=== PATIENT | male | born 1945 | race Caucasian/White ===

== ENCOUNTER → 2016-03-24 | Outpatient (REF) | payer MEDICARE ==
[2016-03-24 12:04] LABS: ALBUMIN 3.2 GM/DL (3.2-5.2); ALBUMIN/GLOBULIN RATIO 0.97 (1.00-1.93); ALKALINE PHOSPHATASE 98 U/L (45-117); ALT/SGPT 23 U/L (12-78); ANION GAP 9 MEQ/L (8-16); AST/SGOT 20 U/L (15-37); BILIRUBIN,TOTAL 0.4 MG/DL (0.2-1.0); BLOOD UREA NITROGEN 18 MG/DL (7-18); CALCIUM LEVEL 8.6 MG/DL (8.8-10.2); CARBON DIOXIDE LEVEL 26 MEQ/L (21-32); CHLORIDE LEVEL 107 MEQ/L (98-107); CHOLESTEROL LEVEL 196 MG/DL (<200); CREATININE FOR GFR 0.88 MG/DL (0.70-1.30); GLOMERULAR FILTRATION RATE > 60.0 (>42); GLUCOSE, FASTING 99 MG/DL (83-110); POTASSIUM SERUM 4.3 MEQ/L (3.5-5.1); SODIUM LEVEL 142 MEQ/L (136-145); TOTAL PROTEIN 6.5 GM/DL (6.4-8.2); TRIGLYCERIDES LEVEL 246 MG/DL (<150)
== END ==
LOC: M SFHCPLAZ 08:23
PROVIDERS: ATTEND Internal Medicine
DX: I10 Essential (primary) hypertension (principal); E78.00 Pure hypercholesterolemia, unspecified

== ENCOUNTER → 2016-04-07 | Outpatient (CLI) | payer MEDICARE ==
[2016-04-07 14:35] LABS: COLLAGEN ADP 172 SECONDS (56-103)
== END ==
LOC: M LAB 14:00
PROVIDERS: ATTEND Ophthalmology
DX: Z01.818 Encounter for other preprocedural examination (principal); H25.13 Age-related nuclear cataract, bilateral
CPT/HCPCS: 17000; 36415; 85576; 93005; G0463

== ENCOUNTER → 2016-05-20 | Outpatient (CLI) | payer MEDICARE ==
--- NOTE | 2016-05-20 12:17 | REP ---
Clinical: Trauma. Technique: Frontal view of the chest with multiple views of the left hemithorax. Findings: Frontal view of the chest demonstrates no acute cardiopulmonary process. Multiple views of the left hemithorax demonstrates no obvious acute rib fracture or pathology. Impression: Normal left rib series Signed by Viraj Celeste MD 05/20/2016 12:08 P
== END ==
LOC: M WUC 11:40
PROVIDERS: ATTEND Physician Assistant
DX: S20.212A Contusion of left front wall of thorax, initial encounter (principal); X58.XXXA Exposure to other specified factors, initial encounter; Y93.9 Activity, unspecified; Y92.9 Unspecified place or not applicable; Y99.8 Other external cause status

== ENCOUNTER → 2016-09-26 | Outpatient (REF) | payer MEDICARE ==
[2016-09-26 11:18] LABS: MEAN CORPUSCULAR HEMOGLOBIN 34.8 pg (27.0-33.0); MEAN CORPUSCULAR VOLUME 102.5 fl (80.0-96.0)
[2016-09-26 11:27] LABS: ALBUMIN 3.3 GM/DL (3.2-5.2); ALBUMIN/GLOBULIN RATIO 1.06 (1.00-1.93); ALKALINE PHOSPHATASE 83 U/L (45-117); ALT/SGPT 22 U/L (12-78); ANION GAP 9 MEQ/L (8-16); AST/SGOT 20 U/L (15-37); BILIRUBIN,TOTAL 0.6 MG/DL (0.2-1.0); BLOOD UREA NITROGEN 16 MG/DL (7-18); CALCIUM LEVEL 8.3 MG/DL (8.8-10.2); CARBON DIOXIDE LEVEL 27 MEQ/L (21-32); CHLORIDE LEVEL 108 MEQ/L (98-107); CHOLESTEROL LEVEL 200 MG/DL (<200); CREATININE FOR GFR 0.78 MG/DL (0.70-1.30); GLOMERULAR FILTRATION RATE > 60.0 (>42); GLUCOSE, FASTING 100 MG/DL (83-110); POTASSIUM SERUM 4.3 MEQ/L (3.5-5.1); SODIUM LEVEL 144 MEQ/L (136-145); TOTAL PROTEIN 6.4 GM/DL (6.4-8.2); TRIGLYCERIDES LEVEL 183 MG/DL (<150)
== END ==
LOC: M SFHCPLAZ 08:13
PROVIDERS: ATTEND Internal Medicine
DX: E78.00 Pure hypercholesterolemia, unspecified (principal); Z79.899 Other long term (current) drug therapy; I10 Essential (primary) hypertension

== ENCOUNTER → 2017-03-30 | Outpatient (REF) | payer MEDICARE ==
[2017-03-30 13:38] LABS: ALBUMIN 3.4 GM/DL (3.2-5.2); ALKALINE PHOSPHATASE 92 U/L (45-117); ALT/SGPT 21 U/L (12-78); ANION GAP 9 MEQ/L (8-16); AST/SGOT 21 U/L (7-37); BILIRUBIN,TOTAL 0.6 MG/DL (0.2-1.0); BLOOD UREA NITROGEN 23 MG/DL (7-18); CALCIUM LEVEL 9.1 MG/DL (8.8-10.2); CARBON DIOXIDE LEVEL 28 MEQ/L (21-32); CHLORIDE LEVEL 107 MEQ/L (98-107); CHOLESTEROL LEVEL 201 MG/DL (<200); CHOLESTEROL RISK RATIO 4.102 (<5); CREATININE FOR GFR 0.89 MG/DL (0.70-1.30); GLOMERULAR FILTRATION RATE > 60.0 (>42); GLUCOSE, FASTING 91 MG/DL (70-100); HDL CHOLESTEROL 49 MG/DL (>40); MAGNESIUM LEVEL 2.1 MG/DL (1.8-2.4); NON-HDL-C 152 MG/DL; POTASSIUM SERUM 4.5 MEQ/L (3.5-5.1); SODIUM LEVEL 144 MEQ/L (136-145); TOTAL PROTEIN 6.8 GM/DL (6.4-8.2); TRIGLYCERIDES LEVEL 180 MG/DL (<150)
== END ==
LOC: M SFHCPLAZ 08:41
DX: I10 Essential (primary) hypertension (principal); E78.00 Pure hypercholesterolemia, unspecified
CPT/HCPCS: 83735

== ENCOUNTER 2017-06-11 09:03 | Day surgery (SDC) | payer MEDICARE ==
[2017-06-11] MEDS: NS 1,000 ML IV (09:15)
[2017-06-11] MEDS ORDERED: LIDOCAINE 2% INJ 100 MG/5 ML SDV (FOR ANES.) As Ordered (09:55)
[2017-06-11] MEDS ORDERED: PROPOFOL 200 MG/20 ML VIAL As Ordered (09:55)
== END 2017-06-11 10:47 | disposition home or self-care (01) ==
LOC: M OPP 09:03
DX: R13.10 Dysphagia, unspecified (principal); I10 Essential (primary) hypertension; E78.00 Pure hypercholesterolemia, unspecified; M10.9 Gout, unspecified; G47.9 Sleep disorder, unspecified; R06.83 Snoring; Z79.82 Long term (current) use of aspirin; Z79.899 Other long term (current) drug therapy; Z88.1 Allergy status to other antibiotic agents; Z88.8 Allergy status to other drugs, medicaments and biological substances; Z86.010 Personal history of colon polyps; Z90.49 Acquired absence of other specified parts of digestive tract; Z96.651 Presence of right artificial knee joint; Z98.890 Other specified postprocedural states; Z87.891 Personal history of nicotine dependence
CPT/HCPCS: 43249

== ENCOUNTER 2017-07-26 08:48 | Day surgery (SDC) | payer MEDICARE ==
[2017-07-26] MEDS: PROPARACAINE 0.5% OPHTH SOL 15ML OD (09:31)
[2017-07-26] MEDS: TROPICAMIDE 1% OPHTH SOLN 2ML OD (09:32)
[2017-07-26] MEDS: PHENYLEPHRINE 2.5% OPHTH SOL 2ML OD (09:32)
[2017-07-26] MEDS: OFLOXACIN 0.3 % (OCUFLOX) OPTH SOL 5ML OD (09:32)
[2017-07-26] MEDS: POVIDONE-IODINE 5% OPHTH PREP SOL 30ML As Ordered (10:31)
[2017-07-26] MEDS: BALANCED SALT IRRIGATION SOLUTION 500ML BAG (FOR OR EYE MACHINE) As Ordered (10:35)
[2017-07-26] MEDS: LIDOCAINE 0.75%/EPINEPHRINE 0.025% IN BSS 1ML SYR INTRACAMERAL (OR ONLY) As Ordered (10:36)
[2017-07-26] MEDS ORDERED: fentaNYL 100 MCG/2 ML INJECTION (J3010) As Ordered (10:37)
[2017-07-26] MEDS ORDERED: MIDAZOLAM INJ 2 MG/2 ML VIAL (J2250) As Ordered (10:38)
[2017-07-26] MEDS: CEFUROXIME 1MG/0.1ML INTRACAMERAL INJ As Ordered (10:42)
[2017-07-26] MEDS: DUOVISC (0.50ML VISCOAT/0.55ML PROVISC) OPHTH KIT As Ordered (10:45)
== END 2017-07-26 12:00 | disposition home or self-care (01) ==
LOC: M SDC 08:48
DX: H25.12 Age-related nuclear cataract, left eye (principal); H40.051 Ocular hypertension, right eye; Z79.82 Long term (current) use of aspirin; I10 Essential (primary) hypertension; Z79.899 Other long term (current) drug therapy; Z88.1 Allergy status to other antibiotic agents
CPT/HCPCS: 66984

== ENCOUNTER → 2017-10-08 | Outpatient (REF) | payer MEDICARE ==
[2017-10-08 12:46] LABS: ALBUMIN 3.2 GM/DL (3.2-5.2); ALBUMIN/GLOBULIN RATIO 0.91 (1.00-1.93); ALKALINE PHOSPHATASE 82 U/L (45-117); ALT/SGPT 24 U/L (12-78); ANION GAP 8 MEQ/L (8-16); AST/SGOT 21 U/L (7-37); BILIRUBIN,TOTAL 0.4 MG/DL (0.2-1.0); BLOOD UREA NITROGEN 14 MG/DL (7-18); CALCIUM LEVEL 8.9 MG/DL (8.8-10.2); CARBON DIOXIDE LEVEL 28 MEQ/L (21-32); CHLORIDE LEVEL 107 MEQ/L (98-107); CHOLESTEROL LEVEL 197 MG/DL (<200); CHOLESTEROL RISK RATIO 4.377 (<5); CREATININE FOR GFR 0.86 MG/DL (0.70-1.30); GLOMERULAR FILTRATION RATE > 60.0 (>42); GLUCOSE, FASTING 95 MG/DL (70-100); HDL CHOLESTEROL 45 MG/DL (>40); LDL CHOLESTEROL 119.4 MG/DL (<100); NON-HDL-C 152 MG/DL; POTASSIUM SERUM 4.7 MEQ/L (3.5-5.1); SODIUM LEVEL 143 MEQ/L (136-145); TOTAL PROTEIN 6.7 GM/DL (6.4-8.2); TRIGLYCERIDES LEVEL 163 MG/DL (<150); URIC ACID 4.5 MG/DL (3.5-7.2)
[2017-10-08 12:56] LABS: HEMATOCRIT 41.8 % (42.0-52.0); HEMOGLOBIN 14.2 g/dl (13.5-17.5); MEAN CORPUSCULAR HEMOGLOBIN 34.3 pg (27.0-33.0); PLATELET COUNT, AUTOMATED 205 10^3/uL (150-450); RED BLOOD COUNT 4.14 10^6/uL (4.30-6.10); RED CELL DISTRIBUTION WIDTH 12.5 % (11.5-14.5); WHITE BLOOD COUNT 6.9 10^3/uL (4.0-10.0)
== END ==
LOC: M SFHCPLAZ 09:51
DX: E78.00 Pure hypercholesterolemia, unspecified (principal); Z86.010 Personal history of colon polyps; I10 Essential (primary) hypertension; M10.9 Gout, unspecified; N20.0 Calculus of kidney
CPT/HCPCS: 83735

== ENCOUNTER 2017-12-19 10:28 | Day surgery (SDC) | payer MEDICARE ==
[2017-12-19] MEDS ORDERED: PROPOFOL 200 MG/20 ML VIAL As Ordered ×2 (11:00→12:06)
[2017-12-19] MEDS: NS 1,000 ML IV (11:00)
[2017-12-19] MEDS ORDERED: LIDOCAINE 2% INJ 100 MG/5 ML SDV (FOR ANES.) As Ordered (11:01)
== END 2017-12-19 12:55 | disposition home or self-care (01) ==
LOC: M OPP 10:28
DX: Z12.11 Encounter for screening for malignant neoplasm of colon (principal); Z86.010 Personal history of colon polyps; K64.0 First degree hemorrhoids; D12.6 Benign neoplasm of colon, unspecified; K62.1 Rectal polyp; K57.30 Diverticulosis of large intestine without perforation or abscess without bleeding; Z98.0 Intestinal bypass and anastomosis status; G47.9 Sleep disorder, unspecified; I10 Essential (primary) hypertension; Z79.82 Long term (current) use of aspirin; Z79.899 Other long term (current) drug therapy; Z88.8 Allergy status to other drugs, medicaments and biological substances; Z87.39 Personal history of other diseases of the musculoskeletal system and connective tissue; Z90.49 Acquired absence of other specified parts of digestive tract; Z96.651 Presence of right artificial knee joint
CPT/HCPCS: 45380

== ENCOUNTER → 2018-03-31 | Outpatient (CLI) | payer MEDICARE ==
[~2018-03-31] MED LIST: ASPI1TAB PO; FISH1000 PO; LATA5OPD OU; MAG PO; MELO15TA28 PO; OMEP20CA3 PO; XALA0.007 OU; ZYLO300T6 PO
--- NOTE | 2018-04-04 13:13 | SLEEPCENT ---
DATE OF PROCEDURE: 03/31/2018 ORDERED BY: Opal Lopez Nocturnal polysomnography was performed for the titration of pressure therapy in this patient with obstructive sleep apnea syndrome and apnea-hypopnea index 85.7. For testing, the patient was fit with a ResMed Quattro full face mask of medium size and 5 cm of water pressure were applied to the circuit and the lights were extinguished. 6 hours and 40 minutes of data were reviewed. There were 343 minutes of sleep identified. Sleep latency was normal at 24 minutes. Rapid eye movement (REM) latency was normal at 115 minutes. Sleep architecture improved over the course of the study. Overall sleep efficiency was 86.7%. The patient's electrocardiogram showed a sinus rhythm with PVCs. Average heart rate was 66 beats per minute. Electroencephalogram (EEG) showed normal waveforms for awake and sleep stages. Respiratory events were fully palliated with C-PAP at a pressure +12. There was significant limb activity, but arousals from limb events were few. IMPRESSION: Obstructive sleep apnea syndrome (G47.33). RECOMMENDATION: Nightly use of pressure therapy at 12 cm of water.
== END ==
LOC: M SLEEP 20:00
PROVIDERS: ATTEND Nurse Practitioner Family
DX: G47.33 Obstructive sleep apnea (adult) (pediatric) (principal)

== ENCOUNTER → 2018-04-12 | Outpatient (REF) | payer MEDICARE ==
[2018-04-12 13:42] LABS: HEMATOCRIT 42.3 % (42.0-52.0); HEMOGLOBIN 14.2 g/dl (13.5-17.5); MEAN CORPUSCULAR HEMOGLOBIN 33.8 pg (27.0-33.0); MEAN CORPUSCULAR HGB CONC 33.6 g/dl (32.0-36.5); MEAN CORPUSCULAR VOLUME 100.7 fl (80.0-96.0); PLATELET COUNT, AUTOMATED 206 10^3/uL (150-450); WHITE BLOOD COUNT 8.1 10^3/uL (4.0-10.0)
[2018-04-12 13:53] LABS: ALBUMIN 3.3 GM/DL (3.2-5.2); ALT/SGPT 20 U/L (12-78); BILIRUBIN,TOTAL 0.5 MG/DL (0.2-1.0); BLOOD UREA NITROGEN 18 MG/DL (7-18); CALCIUM LEVEL 8.7 MG/DL (8.8-10.2); CARBON DIOXIDE LEVEL 28 MEQ/L (21-32); CHLORIDE LEVEL 107 MEQ/L (98-107); CHOLESTEROL LEVEL 184 MG/DL (<200); CHOLESTEROL RISK RATIO 4.717 (<5); CREATININE FOR GFR 0.87 MG/DL (0.70-1.30); GLOMERULAR FILTRATION RATE > 60.0 (>42); GLUCOSE, FASTING 90 MG/DL (70-100); HDL CHOLESTEROL 39 MG/DL (>40); LDL CHOLESTEROL 108 MG/DL (<100); NON-HDL-C 145 MG/DL; POTASSIUM SERUM 4.4 MEQ/L (3.5-5.1); SODIUM LEVEL 141 MEQ/L (136-145); TOTAL PROTEIN 6.6 GM/DL (6.4-8.2); TRIGLYCERIDES LEVEL 187 MG/DL (<150)
[2018-04-12 15:46] LABS: FOLATE 12.8 NG/ML
[2018-04-12 16:08] LABS: VITAMIN B12 LEVEL 1982 PG/ML
== END ==
LOC: M LABDRAWP 08:34
PROVIDERS: ATTEND Internal Medicine
DX: I10 Essential (primary) hypertension (principal); E78.00 Pure hypercholesterolemia, unspecified; E53.8 Deficiency of other specified B group vitamins

== ENCOUNTER → 2018-04-12 | Outpatient (REF) | payer MEDICARE | LOC: CANPREREF → M SFHCPLAZ 08:40 | PROVIDERS: ATTEND Internal Medicine | DX: Z53.9 Procedure and treatment not carried out, unspecified reason (principal); E53.8 Deficiency of other specified B group vitamins; I10 Essential (primary) hypertension; E78.00 Pure hypercholesterolemia, unspecified ==

== ENCOUNTER → 2018-09-11 | Outpatient (REF) | payer MEDICARE ==
[~2018-09-11] MED LIST changes: -ASPI1TAB PO; +ASPI81TA26 PO; +LATA0.0013 OU; -LATA5OPD OU; -OMEP20CA3 PO; +OMEP20CA4 PO
== END ==
LOC: M SFHCPLAZ 12:08
PROVIDERS: ATTEND Internal Medicine
DX: R19.7 Diarrhea, unspecified (principal)

== ENCOUNTER → 2018-10-22 | Outpatient (REF) | payer MEDICARE ==
[2018-10-22 13:18] LABS: ALBUMIN 3.5 GM/DL (3.2-5.2); ALT/SGPT 22 U/L (12-78); BILIRUBIN,TOTAL 0.5 MG/DL (0.2-1.0); BLOOD UREA NITROGEN 18 MG/DL (7-18); CALCIUM LEVEL 9.7 MG/DL (8.8-10.2); CARBON DIOXIDE LEVEL 28 MEQ/L (21-32); CHLORIDE LEVEL 106 MEQ/L (98-107); CHOLESTEROL LEVEL 208 MG/DL (<200); CHOLESTEROL RISK RATIO 4.521 (<5); CREATININE FOR GFR 0.87 MG/DL (0.70-1.30); GLOMERULAR FILTRATION RATE > 60.0 (>42); GLUCOSE, FASTING 99 MG/DL (70-100); HDL CHOLESTEROL 46 MG/DL (>40); LDL CHOLESTEROL 135 MG/DL (<100); NON-HDL-C 162 MG/DL; POTASSIUM SERUM 4.3 MEQ/L (3.5-5.1); SODIUM LEVEL 141 MEQ/L (136-145); TOTAL PROTEIN 6.8 GM/DL (6.4-8.2); TRIGLYCERIDES LEVEL 136 MG/DL (<150); URIC ACID 4.4 MG/DL (3.5-7.2)
== END ==
LOC: M SFHCPLAZ 09:07
PROVIDERS: ATTEND Internal Medicine
DX: I10 Essential (primary) hypertension (principal); E78.00 Pure hypercholesterolemia, unspecified; M10.9 Gout, unspecified

== ENCOUNTER 2018-11-16 11:15 | Emergency (ER) | payer MEDICARE ==
[~2018-11-16] VITALS: Ht 175.3 cm; Wt 118.2 kg
[~2018-11-16 11:15] MED LIST changes: +OMEP1CAP73 PO; -OMEP20CA4 PO
[2018-11-16 12:02] LABS: BASO # 0.1 10^3/uL (0.0-0.2); BASO % 0.7 % (0.0-1.0); EOS # 0.3 10^3/uL (0.0-0.5); EOS % 3.5 % (0.0-3.0); HEMATOCRIT 38.9 % (42.0-52.0); HEMOGLOBIN 13.5 g/dl (13.5-17.5); LYMPH # 1.3 10^3/uL (1.5-5.0); LYMPH % 15.8 % (24.0-44.0); MEAN CORPUSCULAR HEMOGLOBIN 34.2 pg (27.0-33.0); MEAN CORPUSCULAR HGB CONC 34.7 g/dl (32.0-36.5); MEAN CORPUSCULAR VOLUME 98.5 fl (80.0-96.0); MONO # 0.8 10^3/uL (0.0-0.8); MONO % 9.4 % (0.0-5.0); NEUTROPHILS # 5.8 10^3/uL (1.5-8.5); NEUTROPHILS % 70.1 % (36.0-66.0); PLATELET COUNT, AUTOMATED 194 10^3/uL (150-450); RED BLOOD COUNT 3.95 10^6/uL (4.30-6.10); WHITE BLOOD COUNT 8.3 10^3/uL (4.0-10.0)
[2018-11-16 12:29] LABS: INR 1.07; PARTIAL THROMBOPLASTIN TIME 30.2 SECONDS (25.0-38.4); PROTHROMBIN TIME 13.6 SECONDS (11.8-14.0)
[2018-11-16 12:31] LABS: ALBUMIN 3.2 GM/DL (3.2-5.2); ALT/SGPT 25 U/L (12-78); BILIRUBIN,DIRECT < 0.1 MG/DL (0.0-0.2); BILIRUBIN,TOTAL 0.3 MG/DL (0.2-1.0); BLOOD UREA NITROGEN 16 MG/DL (7-18); CALCIUM LEVEL 8.7 MG/DL (8.8-10.2); CARBON DIOXIDE LEVEL 27 MEQ/L (21-32); CHLORIDE LEVEL 106 MEQ/L (98-107); CPK CREATINE PHOSPHOKINASE 78 U/L (39-308); CREATININE FOR GFR 0.86 MG/DL (0.70-1.30); FREE T4 0.87 NG/DL (0.76-1.46); GLOMERULAR FILTRATION RATE > 60.0 (>42); GLUCOSE, FASTING 120 MG/DL (70-100); LIPASE 121 U/L (73-393); MB/CK RELATIVE INDEX 2.56 (< OR =4); POTASSIUM SERUM 4.2 MEQ/L (3.5-5.1); SODIUM LEVEL 140 MEQ/L (136-145); THYROID STIMULATING HORMONE 0.853 uIU/ML (0.358-3.740); TOTAL PROTEIN 6.4 GM/DL (6.4-8.2); TROPONIN I < 0.02 NG/ML (< 0.10)
[2018-11-16] MEDS ORDERED: ISOVUE-370 76% 100ML VIAL (Q9967) As Ordered ONE (13:15)
--- NOTE | 2018-11-16 13:45 | REP ---
AP PORTABLE CHEST: 11/16/2018. Comparison: PA chest with ribs 05/20/2016, two-view chest 10/11/2015. Clinical history: Chest pain. Findings. Right lung base shows patchy infiltrate or atelectasis as a new finding. Some minor basilar fibrotic change in the left. No gross effusion, dense consolidation with air bronchograms or lung mass. Heart not grossly enlarged. The aorta is calcified at the arch, mildly tortuous but unchanged and without aneurysm. Airway intact. No widening of the mediastinum. No apical scar, pneumothorax. Impression: 1. Some patchy atelectasis or infiltrate right base superimposed on some mild basilar fibrotic change. No cardiomegaly, edema, effusion or other acute finding. Electronically Signed by Franklin Rojas MD 11/16/2018 07:40 P
[2018-11-16 14:41] LABS: CK-MB VALUE MASS 1.9 NG/ML (<3.6); CPK CREATINE PHOSPHOKINASE 74 U/L (39-308); MB/CK RELATIVE INDEX 2.57 (< OR =4); TROPONIN I < 0.02 NG/ML (< 0.10)
[2018-11-16 15:16] VITALS: BP 134/81
--- NOTE | 2018-11-16 19:33 | ECGEPIP ---
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
--- NOTE | 2018-11-17 07:09 | REP ---
CT ANGIOGRAM CHEST: 11/16/2018. Comparison: AP portable chest 11/16/2018, CT angiogram 08/03/2014. Clinical history: Chest pain. Technique: Bolus of 75 ml Isovue 370 and scanning through the chest with CT angiogram protocol with coronal and sagittal reconstructions with MIP reformats and standard reformats are reviewed. Findings: Basilar fibrotic changes bilaterally with some minor subsegmental atelectatic changes posterior lower lung zone. No effusion or acute infiltrate with air bronchograms. There is a stable 8 mm pleural-based nodule in the anterior axillary line in the lateral segment right middle lobe. Heart is mildly enlarged with no pericardial thickening or effusion. The aorta is without aneurysm or dissection. Some calcifications at the arch. The main, right and left pulmonary arteries and the mediastinum are without filling defects. Lobar, segmental and visible subsegmental arteries are all without filling defects or vessel cutoff. There is no pathologic sized mediastinal or hilar adenopathy. Tracheal airway intact. The axillary and supraclavicular region show no mass. Bone windows show the sternum, manubrium, medial clavicles, visualized portions of scapulae and humeral heads intact. There is some degenerative change at the both shoulder joints. The ribs are without focal lesion or fracture. There are marginal osteophytes throughout the thoracic spine with no compression deformity of destructive lesion. In the upper abdomen. Spleen is not enlarged and shows no focal lesion of the liver is without mass or focal lesion in its visible segment in the left hepatic lobe is mildly prominent. Gallbladder partially contracted without calcified stone or mass. That portion of pancreas included was unremarkable. Adrenal glands intact. No definite hiatal hernia. Impression: 1. No CT evidence for pulmonary thromboembolism. 2. Calcified aortic arch and descending aorta without gross aneurysm or dissection. 3. No pathologic sized mediastinal or hilar adenopathy. 4. Some basilar fibrotic changes with some minor subsegmental atelectatic changes posteriorly lower lung zone on the right. No dense consolidation, effusion or mass. 5. There is 8 mm pleural-based nodule anterior axillary line in the right middle lobe lateral segment, unchanged for 4 years indicating benign finding. 6. No fracture or destructive lesion in the bony chest. Electronically Signed by Franklin Rojas MD 11/17/2018 09:14 A
--- NOTE | 2018-11-18 08:19 | ECGEPIP ---
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
--- NOTE | 2018-11-19 12:42 | ED PDOC ---
Post-Departure Follow-Up dr newby faxed formal report of cta chest for Yarelis Herrera MD Nov 19, 2018 12:42
[2018-12-01] MEDS ORDERED: OMEP1CAP73 PO (18:28)
== END 2018-11-16 15:34 | disposition home or self-care (01) ==
LOC: M ED 11:15
DX: M25.512 Pain in left shoulder (principal); I44.0 Atrioventricular block, first degree; I45.10 Unspecified right bundle-branch block; R91.1 Solitary pulmonary nodule; I10 Essential (primary) hypertension; M54.9 Dorsalgia, unspecified; K57.32 Diverticulitis of large intestine without perforation or abscess without bleeding; Z87.891 Personal history of nicotine dependence; Z79.82 Long term (current) use of aspirin; Z79.899 Other long term (current) drug therapy; Z88.8 Allergy status to other drugs, medicaments and biological substances
CPT/HCPCS: 71045; 71275; 80048; 80076; 82550; 82553; 83690; 84439; 84443; 84484; 85025; 85610; 85730; 93005; 93041; 94760; 99285; Q9967

== ENCOUNTER → 2018-11-28 | Outpatient (REF) | payer MEDICARE ==
[~2018-11-28] MED LIST changes: +ATOR1TAB21 PO; +CLOP75TA2 PO; +FLON1SPR; +MAGN64TASA PO; -OMEP1CAP73 PO; +OMEP20CA4 PO; +SPIR-10 PO
[2018-11-28 17:32] LABS: HEMATOCRIT 43.1 % (42.0-52.0); HEMOGLOBIN 14.6 g/dl (13.5-17.5); MEAN CORPUSCULAR HEMOGLOBIN 34.8 pg (27.0-33.0); MEAN CORPUSCULAR HGB CONC 33.9 g/dl (32.0-36.5); MEAN CORPUSCULAR VOLUME 102.6 fl (80.0-96.0); PLATELET COUNT, AUTOMATED 217 10^3/uL (150-450); WHITE BLOOD COUNT 9.2 10^3/uL (4.0-10.0)
[2018-11-28 17:42] LABS: ALBUMIN 3.6 GM/DL (3.2-5.2); BLOOD UREA NITROGEN 14 MG/DL (7-18); CALCIUM LEVEL 9.2 MG/DL (8.8-10.2); CARBON DIOXIDE LEVEL 28 MEQ/L (21-32); CHLORIDE LEVEL 106 MEQ/L (98-107); CREATININE FOR GFR 0.91 MG/DL (0.70-1.30); GLOMERULAR FILTRATION RATE > 60.0 (>42); GLUCOSE, FASTING 109 MG/DL (70-100); NT-PRO BNP 493 PG/ML (<125); PHOSPHORUS LEVEL 3.2 MG/DL (2.5-4.9); POTASSIUM SERUM 4.1 MEQ/L (3.5-5.1); SODIUM LEVEL 140 MEQ/L (136-145)
== END ==
LOC: M LABDRAWP 15:20
PROVIDERS: ATTEND Internal Medicine Cardiovascular Disease
DX: R06.02 Shortness of breath (principal); I44.0 Atrioventricular block, first degree

== ENCOUNTER 2018-12-01 13:38 | Observation (INO) | payer MEDICARE ==
[~2018-12-01] VITALS: Ht 175.3 cm; Wt 117.7 kg
[~2018-12-01 13:38] MED LIST changes: -ATOR1TAB21 PO; -CLOP75TA2 PO; -FLON1SPR; -MAGN64TASA PO; -SPIR-10 PO
[2018-12-01] MEDS ORDERED: SPIR-10 PO (13:53)
[2018-12-01] MEDS ORDERED: CLOP75TA2 PO (13:53)
[2018-12-01 14:38] LABS: BASO # 0.1 10^3/uL (0.0-0.2); BASO % 0.9 % (0.0-1.0); EOS # 0.3 10^3/uL (0.0-0.5); EOS % 3.1 % (0.0-3.0); HEMATOCRIT 43.2 % (42.0-52.0); HEMOGLOBIN 14.7 g/dl (13.5-17.5); LYMPH # 1.4 10^3/uL (1.5-5.0); LYMPH % 15.8 % (24.0-44.0); MEAN CORPUSCULAR HEMOGLOBIN 34.4 pg (27.0-33.0); MEAN CORPUSCULAR VOLUME 101.2 fl (80.0-96.0); MONO # 0.9 10^3/uL (0.0-0.8); MONO % 9.6 % (0.0-5.0); NEUTROPHILS # 6.4 10^3/uL (1.5-8.5); NEUTROPHILS % 69.9 % (36.0-66.0); PLATELET COUNT, AUTOMATED 210 10^3/uL (150-450); RED BLOOD COUNT 4.27 10^6/uL (4.30-6.10); WHITE BLOOD COUNT 9.1 10^3/uL (4.0-10.0)
[2018-12-01 15:02] LABS: ALBUMIN 3.6 GM/DL (3.2-5.2); ALT/SGPT 28 U/L (12-78); BILIRUBIN,DIRECT 0.1 MG/DL (0.0-0.2); BILIRUBIN,TOTAL 0.6 MG/DL (0.2-1.0); BLOOD UREA NITROGEN 14 MG/DL (7-18); CALCIUM LEVEL 9.6 MG/DL (8.8-10.2); CARBON DIOXIDE LEVEL 29 MEQ/L (21-32); CHLORIDE LEVEL 105 MEQ/L (98-107); CK-MB VALUE MASS 1.8 NG/ML (<3.6); CPK CREATINE PHOSPHOKINASE 76 U/L (39-308); CREATININE FOR GFR 0.89 MG/DL (0.70-1.30); GLOMERULAR FILTRATION RATE > 60.0 (>42); GLUCOSE, FASTING 88 MG/DL (70-100); LIPASE 115 U/L (73-393); MAGNESIUM LEVEL 1.8 MG/DL (1.8-2.4); MB/CK RELATIVE INDEX 2.37 (< OR =4); POTASSIUM SERUM 4.4 MEQ/L (3.5-5.1); SODIUM LEVEL 138 MEQ/L (136-145); TOTAL PROTEIN 7.5 GM/DL (6.4-8.2); TROPONIN I < 0.02 NG/ML (< 0.10)
[2018-12-01 17:15] LABS: CK-MB VALUE MASS 1.7 NG/ML (<3.6); CPK CREATINE PHOSPHOKINASE 65 U/L (39-308); MB/CK RELATIVE INDEX 2.62 (< OR =4); TROPONIN I < 0.02 NG/ML (< 0.10)
[2018-12-01] MEDS ORDERED: FLON1SPR (18:28)
[2018-12-01] MEDS ORDERED: MAGN64TASA PO (18:28)
[2018-12-01] MEDS ORDERED: OMEP20CA4 PO (18:28)
[2018-12-01] MEDS ORDERED: FUROSEMIDE 20 MG/2 ML VIAL (J1940) IV ONE (18:45)
--- NOTE | 2018-12-01 18:57 | HPEPDOC ---
General Date of Admission 12/01/2018 Date of Service: Dec 01, 2018 Chief Complaint The patient is a 73-year-old male Who presented to the emergency room with complaints of lightheadedness and a numbness and tingling sensation of the left arm History of Present Illness Patient is a 73-year-old male with PMHx HTN, DLP, Gout, Arthritis, and GERD who presented to the ER with complaints of possibly passing out and numbness extending from his left arm to his left shoulder. Patient reported that he experiences for short duration of time and contacted EMS because he was concerned. Patient had resolution of his symptoms prior to arrival to emergency room. Patient reports that currently he feels pretty good. He denies any chest pain, palpitations, shortness of breath, cough, nausea, vo miting, abdominal pain, constipation, diarrhea, or urinary discomfort. He denies experiencing fevers or chills over the last 2 weeks. He has noted that he had experienced some chest discomfort approximately one week ago when he was mowing the lawn. Patient had seen Dr. Fisher of cardiology on and was scheduled to receive a stress test on 12/11/2018. Patient was prescribed spironolactone and Plavix. Patient denies any prior history of heart attacks or strokes. He has received a stress test in 2010 that was reported to be normal. Has not received any prior cardiac catheterizations. Patient reports that hes able to ambulate up 1 flight of stairs and does not experience any chest pain but does report that he might be limited because of shortness of breath. Home Medications Scheduled Allopurinol (Zyloprim) 300 Mg Tab, 300 MG PO DAILY, (Reported) Aspirin (Aspirin EC) 81 Mg Tab, 81 MG PO DAILY, (Reported) Atorvastatin Calcium (Atorvastatin Calcium) 20 Mg Tablet, 20 MG PO DAILY Clopidogrel Bisulfate (Clopidogrel) 75 Mg Tablet, 75 MG PO DAILY, (Reported) Fluticasone Propionate (Flonase Allergy Relief) 9.9 Ml [place].susp, 2 SPRAY NA QHS, (Reported) Magnesium Chloride (Mag64) 64 Mg Tablet.dr, 64 MG PO DAILY, (Reported) Meloxicam (Meloxicam) 15 Mg Tab, 15 MG PO DAILY, (Reported) Omeprazole (Omeprazole) 20 Mg Capsule.dr, 20 MG PO DAILY, (Reported) Spironolactone (Spironolactone) 25 Mg Tablet, 25 MG PO DAILY, (Reported) Allergies Coded Allergies: cephalexin (Verified Allergy, Intermediate, 11/16/18) rash sulfamethoxazole (Verified Allergy, Intermediate, rash, 11/16/18) trimethoprim (Verified Allergy, Intermediate, rash, 11/16/18) Past Medical History Medical History HTN, DLP, Gout, Arthritis, and GERD Surgical History Right knee replacement in 2017 Colonoscopy Left wrist fracture status post repair Bilateral cataract resection Tonsillectomy Umbilical hernia repair Back surgery in 1995 secondary to herniated disks at L3-L4; patient has since experienced fevers of the left foot and uses a support device Family History - Mother with no reported problems - Father has been reported to have from a heart attack - Patient reports that his eldest brother has a history of cancer related to asbestos Social History - Denies the use of illicit drugs; patient reports that he quit smoking in the ; reports social alcohol use - Denies recent travel or sick contacts - Lives alone - Occupation; 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 Review of Systems Other systems 10 point review of systems complete, all negative otherwise stated in HPI Vital Signs - Vitals: BP 141/70, HR 82, RR 16, Sat 97%RA, Temp 98.5F - General: Lying in bed, No acute distress, Speaking in full sentences, AAOx3 - HEENT: NC, AT, PERRLA, EOMI - CVS: RRR, +S1S2 - Lungs: Fair air entry bilaterally, No appreciable wheezing / rales / rhonchi - Abdomen: Soft, Non-distended, Non-tender - Extremities: 2+ pitting edema bilaterally, No calf tenderness - Neuro: No focal motor or sensory deficit - Skin: No visible rashes Laboratory Data Labs 24H Laboratory Tests 2 12/01/18 14:03: Immature Granulocyte % (Auto) 0.7, White Blood Count 9.1, Red Blood Count 4.27L, Hemoglobin 14.7, Hematocrit 43.2, Mean Corpuscular Volume 101.2H, Mean Corpuscular Hemoglobin 34.4H, Mean Corpuscular Hemoglobin Concent 34.0, Red Cell Distribution Width 12.6, Platelet Count 210, Neutrophils (%) (Auto) 69.9H, Lymphocytes (%) (Auto) 15.8L, Monocytes (%) (Auto) 9.6H, Eosinophils (%) (Auto) 3.1H, Basophils (%) (Auto) 0.9, Neutrophils # (Auto) 6.4, Lymphocytes # (Auto) 1.4L, Monocytes # (Auto) 0.9H, Eosinophils # (Auto) 0.3, Basophils # (Auto) 0.1, Nucleated Red Blood Cells % (auto) 0.0, Anion Gap 4L, Glomerular Filtration Rate > 60.0, Calcium Level 9.6, Magnesium Level 1.8, Aspartate Amino Transf (AST/SGOT) 25, Alanine Aminotransferase (ALT/SGPT) 28, Alkaline Phosphatase 94, Total Bilirubin 0.6, Direct Bilirubin 0.1, Total Creatine Kinase 76, Creatine Kinase MB 1.8, Creatine Kinase MB Relative Index 2.37, Troponin I < 0.02, Total Protein 7.5, Albumin 3.6, Albumin/Globulin Ratio 0.92L, Lipase 115, Thyroid Stimulating Hormone (TSH) 1.160 12/01/18 16:39: Total Creatine Kinase 65, Creatine Kinase MB 1.7, Creatine Kinase MB Relative Index 2.62, Troponin I < 0.02 CBC/BMP Laboratory Tests 12/01/18 14:03 Red Blood Count 4.27 L, Mean Corpuscular Volume 101.2 H, Mean Corpuscular Hemoglobin 34.4 H, Mean Corpuscular Hemoglobin Concent 34.0, Red Cell Distribution Width 12.6, Neutrophils (%) (Auto) 69.9 H, Lymphocytes (%) (Auto) 15.8 L, Monocytes (%) (Auto) 9.6 H, Eosinophils (%) (Auto) 3.1 H, Basophils (%) (Auto) 0.9, Neutrophils # (Auto) 6.4, Lymphocytes # (Auto) 1.4 L, Monocytes # (Auto) 0.9 H, Eosinophils # (Auto) 0.3, Basophils # (Auto) 0.1 Plan / VTE VTE Prophylaxis Ordered?: Yes Plan Plan Feeling of passing out/numbness and tingling left arm - Patient has been following with cardiology as an outpatient for a recent history of chest pain - Currently patient has reported no symptoms. Upon arrival to emergency room - Patient remains hemodynamically stable and afebrile - Lab work remains benign - Troponin 2 sets have been negative. Will continue to trend - Will check lipid panel and A1c - EKG performed in the emergency room was compared against prior EKG from 11/16/2018 and does not reveal any significant changes; current EKG does not demonstrate any significant ischemia - Will order ECHO and c/w Telemetry monitoring - c/w ASA 81, Plavix 75 - Physical therapy evaluation tomorrow HTN - Patient blood pressure appears to be well-controlled at this time - Lower extremity is due reveal some evidence of edema - Echocardiogram will be acquired - Will give 1 dose furosemide 20 mg IV - Continue with spironolactone DLP - Will check Lipid panel - c/w ASA 81 Gout - c/w Allopurinol Arthritis - c/w Tylenol PRN GERD - c/w Omeprazole DVT prophylaxis - Will start Loverodolfox DYAN JORDAN MD Dec 01, 2018 18:57
[2018-12-01] MEDS ORDERED: ACETAMINOPHEN TAB 650MG DOSE (2X325MG) PO PRN (19:00)
--- NOTE | 2018-12-01 19:19 | ECGEPIP ---
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
[2018-12-01 19:31] LABS: CK-MB VALUE MASS 1.8 NG/ML (<3.6); CPK CREATINE PHOSPHOKINASE 70 U/L (39-308); MB/CK RELATIVE INDEX 2.57 (< OR =4); NT-PRO BNP 493 PG/ML (<125); TROPONIN I < 0.02 NG/ML (< 0.10)
[2018-12-01 20:25] VITALS: BP 150/78
[2018-12-01] MEDS: FLUTICASONE PROP 0.05% NASAL SPRAY 16 GM (FLONASE) SCH (21:32)
[2018-12-01] MEDS: ENOXAPARIN 40 MG/0.4 ML SYRINGE (J1650) SC SCH (21:32)
[2018-12-02] VITALS (7 sets, daily range): BP systolic 116–149; BP diastolic 70–90
[2018-12-02 01:44] LABS: CK-MB VALUE MASS 1.4 NG/ML (<3.6); CPK CREATINE PHOSPHOKINASE 60 U/L (39-308); MB/CK RELATIVE INDEX 2.33 (< OR =4); TROPONIN I < 0.02 NG/ML (< 0.10)
--- NOTE | 2018-12-02 06:34 | REP ---
REASON: Chest pain. COMPARISON: 11/16/2018 The technique utilized in obtaining the radiograph has magnified the cardiac silhouette and accentuated the interstitial markings. There is cardiomegaly accentuated by technique. The lung arias are clear. The left CP angle has not been included on this portable exam. There is no change in the osseous structures. IMPRESSION: Cardiomegaly with no evidence of acute cardiopulmonary disease. Electronically Signed by Trevor Jasmine DO 12/02/2018 12:45 P
[2018-12-02 07:09] LABS: BASO # 0.1 10^3/uL (0.0-0.2); BASO % 0.9 % (0.0-1.0); EOS # 0.4 10^3/uL (0.0-0.5); EOS % 5.1 % (0.0-3.0); HEMATOCRIT 40.5 % (42.0-52.0); HEMOGLOBIN 13.8 g/dl (13.5-17.5); LYMPH # 1.7 10^3/uL (1.5-5.0); LYMPH % 20.8 % (24.0-44.0); MEAN CORPUSCULAR HEMOGLOBIN 34.7 pg (27.0-33.0); MEAN CORPUSCULAR HGB CONC 34.1 g/dl (32.0-36.5); MEAN CORPUSCULAR VOLUME 101.8 fl (80.0-96.0); MONO # 0.9 10^3/uL (0.0-0.8); MONO % 10.7 % (0.0-5.0); NEUTROPHILS # 4.9 10^3/uL (1.5-8.5); PLATELET COUNT, AUTOMATED 197 10^3/uL (150-450); RED BLOOD COUNT 3.98 10^6/uL (4.30-6.10)
[2018-12-02 07:23] LABS: HEMOGLOBIN A1c 6.2 %
[2018-12-02 07:42] LABS: BLOOD UREA NITROGEN 19 MG/DL (7-18); CALCIUM LEVEL 9.2 MG/DL (8.8-10.2); CARBON DIOXIDE LEVEL 30 MEQ/L (21-32); CHLORIDE LEVEL 103 MEQ/L (98-107); CHOLESTEROL LEVEL 185 MG/DL (<200); CHOLESTEROL RISK RATIO 4.512 (<5); CK-MB VALUE MASS 1.1 NG/ML (<3.6); CPK CREATINE PHOSPHOKINASE 57 U/L (39-308); GLOMERULAR FILTRATION RATE > 60.0 (>42); GLUCOSE, FASTING 92 MG/DL (70-100); HDL CHOLESTEROL 41 MG/DL (>40); LDL CHOLESTEROL 108 MG/DL (<100); MAGNESIUM LEVEL 1.9 MG/DL (1.8-2.4); MB/CK RELATIVE INDEX 1.93 (< OR =4); NON-HDL-C 144 MG/DL; POTASSIUM SERUM 4.2 MEQ/L (3.5-5.1); SODIUM LEVEL 137 MEQ/L (136-145); TRIGLYCERIDES LEVEL 181 MG/DL (<150); TROPONIN I < 0.02 NG/ML (< 0.10)
[2018-12-02] MEDS: OMEPRAZOLE 20 MG CAP PO SCH (09:07)
[2018-12-02] MEDS: MAGNESIUM CHLORIDE 64 MG TABCR (SLO MAG) PO SCH (09:07)
[2018-12-02] MEDS: ALLOPURINOL 300 MG TAB PO SCH (09:07)
[2018-12-02] MEDS: CLOPIDOGREL 75 MG TAB PO SCH (09:07)
[2018-12-02] MEDS: ASPIRIN 81 MG ENTERIC TAB PO SCH (09:07)
[2018-12-02] MEDS: SPIRONOLACTONE 25 MG TAB PO SCH (09:07)
--- NOTE | 2018-12-02 10:24 | IPNPDOC ---
Text Note Date of Service The patient was seen on 12/02/18. NOTE Marcelo Hickman is a 73 year old male with significant past medical history inc luding arthritis, gout, hypertension GERD and hyperlipidemia. Patient presented to the ED yesterday with lightheadedness, numbness and tingling sensation of the left arm which was initiated while talking to his son on the phone. Symptoms dissipated in the ED. Patient was seen at bedside this morning and there was no acute changes to his condition. Patient denies shortness of breath, chest pain, nausea, vomiting, diarrhea, abdominal pain, numbness or neurological problems. Patient states she has some tingling sensation in his left arm initially upon PT testing but that has since resolved. PT cleared patient this morning. ECHO has been ordered. Constitutional- Denies fever, chills and night sweats HEENT- denies headaches, hearing loss, ringing sensation Cardiovascular- denies chest pain or palpations Respiratory- denies shortness of breath or wheezing Gastrointestinal- denies nausea, vomiting, diarrhea, constipation or abdominal pain Musculoskeletal- weakness upper and lower extremities due to arthritis Neurological- denies numbness or tingling sensation Endocrine- denies polyuria, polydipsia, polyphagia Genirourinary- denies hematuria or dysuria Psychology- denies anxiety or depression Physical Exam Vitals: Temp 98.4, Pulse 70, Respiratory 18, blood pressure 149/89 General- alert, oriented to person, place and time HEENT- Normacephalic, atraumatic, disc margins sharp, fundi without hemorrhages or exudate. External ear canals patent, TM with nonprotruding, tonsils 2 + with out exudates, oral mucosa clear Neck- supple without lymphadenopathy Respiratory: thorax symmetric with good expansion, lungs clear with no rales or rhonchi, no crackles Cardiovascular- normal s1 and s2, without s3 and s3, no murmur, rubs or clicks Abdominal- no present bowel sounds, nondistended, no tenderness on palpation, soft, no masses noted Extremities- muscle strengthen test (4/5) on both lower and upper extremities, radial, femoral and pedal pulses are palatable, pitting edema evident bi laterally on lower extremities Neurology- no focal or sensory deficits, CN1-12 normal Skin- no ulcers, rashes evident Assessment and plan Feeling of passing out/numbness and tingling left arm - Patient has been following with cardiology as an outpatient for a recent hist ory of chest pain - Currently patient has reported no symptoms. Upon arrival to emergency room - Patient remains hemodynamically stable and afebrile - Lab work remains benign - Troponin 2 sets have been negative. Will continue to trend - Will check A1c - EKG performed in the emergency room was compared against prior EKG from 11/16/2018 and does not reveal any significant changes; current EKG does not demonstrate any significant ischemia - Echo has been ordered. Pending - Telemetry monitoring - c/w ASA 81, Plavix 75 - Physical therapy evaluated and cleared today - Patient started complaining of dizziness and called the nurses in around 11:30am this morning. Symptoms quickly resolved. Heart rate had increased to 100 and he still has elevated BP. Will continue to monitor HTN - Patient blood pressure elevated today at 149/89 compared to 4 am this morning, which was 116/74 - Lower extremity reveal some evidence of edema - 1 dose furosemide 20 mg IV given - Continue with spironolactone - Echocardiogram will be acquired DLP - Lipid levels bolderline elevated at 181H - c/w ASA 81 Gout - c/w Allopurinol Arthritis - c/w Tylenol PRN GERD - c/w Omeprazole DVT prophylaxis - c/w Lovenox VS,Fishbone, I+O VS, Fishbone, I+O Laboratory Tests 12/01/18 14:03 Red Blood Count 4.27 L, Mean Corpuscular Volume 101.2 H, Mean Corpuscular Hemoglobin 34.4 H, Mean Corpuscular Hemoglobin Concent 34.0, Red Cell Distribution Width 12.6, Neutrophils (%) (Auto) 69.9 H, Lymphocytes (%) (Auto) 15.8 L, Monocytes (%) (Auto) 9.6 H, Eosinophils (%) (Auto) 3.1 H, Basophils (%) (Auto) 0.9, Neutrophils # (Auto) 6.4, Lymphocytes # (Auto) 1.4 L, Monocytes # (Auto) 0.9 H, Eosinophils # (Auto) 0.3, Basophils # (Auto) 0.1 12/02/18 06:57 Red Blood Count 3.98 L, Mean Corpuscular Volume 101.8 H, Mean Corpuscular Hemog lobin 34.7 H, Mean Corpuscular Hemoglobin Concent 34.1, Red Cell Distribution Width 12.7, Neutrophils (%) (Auto) 62.0, Lymphocytes (%) (Auto) 20.8 L, Monocytes (%) (Auto) 10.7 H, Eosinophils (%) (Auto) 5.1 H, Basophils (%) (Auto) 0.9, Neutrophils # (Auto) 4.9, Lymphocytes # (Auto) 1.7, Monocytes # (Auto) 0.9 H, Eosinophils # (Auto) 0.4, Basophils # (Auto) 0.1 Vital Signs Date Time Temp Pulse Resp B/P (MAP) Pulse Ox O2 Delivery O2 Flow Rate FiO2 12/02/18 08:00 98.4 70 18 149/89 (109) 97 12/01/18 20:13 Room Air I&O- Last 24 Hours up to 6 AM 12/02/18 05:59 Intake Total 710 ml Output Total 0 ml Balance 710 ml GME ATTESTATION GME ATTESTATION My faculty preceptor for this patient encounter was physically present during the encounter and was fully available. All aspects of the patient interview, examination, medical decision making process, and medical care plan development were reviewed and approved by the faculty preceptor. The faculty preceptor is aware and concurs with the plan as stated in the body of this note and will attest to such by his/her cosignature. ATTENDING NOTE I, Darrel Jordan, have independently examined this patient and performed my own physical exam, as well as reviewed the documentation and edited where necessary. I have discussed in detail with the resident / student the findings and plan of treatment as documented by the resident / student and edited their note. I agree with their findings and treatment plan and have edited their documentation. I will continue to follow the patient during this hospital stay. KYLIE OCHOA Dec 02, 2018 10:23 DARREL JORDAN MD Dec 02, 2018 15:22
[2018-12-02] MEDS ORDERED: FUROSEMIDE 40 MG/4 ML VIAL (J1940) IV ONE (12:00)
[2018-12-02] MEDS: ATORVASTATIN 20 MG TAB PO SCH (13:23)
[2018-12-02] MEDS: ENOXAPARIN 40 MG/0.4 ML SYRINGE (J1650) SC SCH (20:34)
[2018-12-02] MEDS: FLUTICASONE PROP 0.05% NASAL SPRAY 16 GM (FLONASE) SCH (20:34)
[2018-12-03] VITALS: BP 140/96
[2018-12-03 04:00] VITALS: BP 144/72
[2018-12-03 05:45] LABS: BASO # 0.1 10^3/uL (0.0-0.2); BASO % 0.9 % (0.0-1.0); EOS # 0.4 10^3/uL (0.0-0.5); EOS % 4.8 % (0.0-3.0); HEMATOCRIT 40.1 % (42.0-52.0); HEMOGLOBIN 13.8 g/dl (13.5-17.5); LYMPH # 2.4 10^3/uL (1.5-5.0); LYMPH % 26.4 % (24.0-44.0); MEAN CORPUSCULAR HEMOGLOBIN 34.9 pg (27.0-33.0); MEAN CORPUSCULAR HGB CONC 34.4 g/dl (32.0-36.5); MEAN CORPUSCULAR VOLUME 101.5 fl (80.0-96.0); MONO % 11.2 % (0.0-5.0); NEUTROPHILS % 55.6 % (36.0-66.0); PLATELET COUNT, AUTOMATED 191 10^3/uL (150-450); RED BLOOD COUNT 3.95 10^6/uL (4.30-6.10)
[2018-12-03 06:17] LABS: BLOOD UREA NITROGEN 19 MG/DL (7-18); CALCIUM LEVEL 9.1 MG/DL (8.8-10.2); CARBON DIOXIDE LEVEL 29 MEQ/L (21-32); CHLORIDE LEVEL 100 MEQ/L (98-107); CREATININE FOR GFR 0.96 MG/DL (0.70-1.30); GLOMERULAR FILTRATION RATE > 60.0 (>42); GLUCOSE, FASTING 94 MG/DL (70-100); MAGNESIUM LEVEL 1.8 MG/DL (1.8-2.4); POTASSIUM SERUM 4.1 MEQ/L (3.5-5.1); SODIUM LEVEL 135 MEQ/L (136-145)
[2018-12-03 08:00] VITALS: BP 139/88
[2018-12-03] MEDS: CLOPIDOGREL 75 MG TAB PO SCH (08:33)
[2018-12-03] MEDS: MAGNESIUM CHLORIDE 64 MG TABCR (SLO MAG) PO SCH (08:33)
[2018-12-03] MEDS: ATORVASTATIN 20 MG TAB PO SCH (08:33)
[2018-12-03] MEDS: OMEPRAZOLE 20 MG CAP PO SCH (08:34)
[2018-12-03] MEDS: ASPIRIN 81 MG ENTERIC TAB PO SCH (08:34)
[2018-12-03] MEDS: ALLOPURINOL 300 MG TAB PO SCH (08:34)
[2018-12-03] MEDS: SPIRONOLACTONE 25 MG TAB PO SCH (08:34)
[2018-12-03] MEDS ORDERED: ATOR1TAB21 PO (10:52)
--- NOTE | 2018-12-03 11:35 | ECHO ---
DATE OF STUDY: 12/02/2018 REFERRING PHYSICIAN: Dr. Darrel Gomez INDICATION: Syncope. HEIGHT: 175 cm WEIGHT: 117 kg Rhythm was sinus with appearance of a right bundle branch block. Appearance of a borderline first degree AV block. Image quality was fair. No pericardial effusion. This was a 2D, M-mode, color flow Doppler and pulse wave Doppler examination and included mitral annular tissue Doppler. 2D MEASUREMENTS: Ventricular septum: 1.67 cm Posterior wall: 1.20 cm Left ventricle diastole: 5.6 cm LVOT: 2.81 cm Left atrium: 3.9 cm Left atrial volume index: 17 DOPPLER MEASUREMENTS: Very mild aortic regurgitation. Moderate aortic stenosis. Aortic valve area 1.44 cm/s (continuity equation, VTI) LVOT velocity 93.2 cm/s LVOT VTI 22.4 cm Aortic valve VTI: 54.0 cm Peak aortic valve gradient: 23 mmHg Mean aortic valve gradient: 14 mmHg Mitral E velocity 70.1 cm/s Mitral A velocity 101 cm/s Very mild tricuspid regurgitation. Estimated right ventricle systolic pressure 27-32 mmHg assuming a right atrial pressure of 5-10 mmHg Pulmonary artery systolic pressure 30 mmHg MITRAL ANNULAR TISSUE DOPPLER: E prime lateral 15.7 cm/s E prime septal 8.2 cm/s CONCLUSIONS: 1. Degenerative, calcific aortic valve disease with severe focal thickening and focal calcific deposits of a three-cuspid aortic valve. No effusion of the aortic cusps. Moderate reduction in aortic cusp mobility. Moderate aortic valve stenosis with aortic valve area calculated to be 1.44 cm squared by continuity equation (VTI) and 1.43 cm/s by planimetry. Very mild aortic regurgitation. 2. Mild-moderate concentric left ventricle hypertrophy. Normal regional LV wall motion and wall thickening. Normal LV systolic function. LVEF 60-65% by visual estimate. Normal LV diastolic function. 3. Moderate mitral annular calcification. No mitral regurgitation or mitral stenosis. After I read this echocardiogram Doppler I spoke directly with Dr. Darrel Gomez by cell phone and communicated the results of this test to him. [facility]
[2018-12-03 12:00] VITALS: BP 139/91
--- NOTE | 2018-12-03 18:26 | DS.PDOC ---
Discharge Summary General Date of Admission Dec 01, 2018 at 13:39 Date of Discharge 12/03/18 Primary Care Physician: Patric Ford Attending Physician: DARREL GOMEZ MD Discharge Summary PROCEDURES PERFORMED DURING STAY: [None]. ADMITTING DIAGNOSES: 1. Near syncope 2. Hypertension 3. Dyslipidemia 4. Gout 5. Arthritis 6. GERD DISCHARGE DIAGNOSES: 1. Near Syncope 2. Hypertension 3. Dyslipidemia 4. Gout 5. Arthritis 6. GERD COMPLICATIONS/CHIEF COMPLAINT: Near Syncope. HISTORY OF PRESENT ILLNESS: Patient is a 73 year old male with a past medical history of hypertension, dyslipidemia, gout, and arthritis who presented to the ER with complaint of "numbness in his left arm extending to his shoulder" and a feeling of "almost passing out. Patient had stated that this feeling was transient and did not last long. He had denied any chest pain, palpitations, shortness of breath, cough, nausea, vomiting, or abdominal pain. Patient had stated that he had experienced some discomfort while mowing his lawn a week ago. Patient had seen Dr. Fisher of Cardiology and was scheduled for a stress test on 12/11/2018. Patient stated that he was started on spironolactone and Plavix. In the ER the patient was vitally stable. He had received a chest x-ray which was negative for any acute findings. Given the patients near syncopal episode hospitalist team was contacted for further evaluation and management. On admission the patient was placed on telemetry. He was scheduled for an echocardiogram. He was continued on his home medications. The patient had received physical therapy. His echocardiogram demonstrated mid-moderate concentric left ventricle hypertrophy. . Normal regional left ventricular wall motion, wall thickening, normal ventricular systolic function. Left ventricular ejection fraction 6065% by visual estimate normal left ventricular diastolic function. Patient had degenerative calcific aortic valve disease with severe focal thickening and focal calcific deposits of a 3 cusp aortic valve. Patient had not experienced any events on telemetry and remained symptom free. He was discharged with instructions to follow-up with Dr. Fisher of Cardiology as an outpatient. DISCHARGE MEDICATIONS: Please see below. ALLERGIES: Please see below. PHYSICAL EXAMINATION ON DISCHARGE: VITAL SIGNS: Please see below. GENERAL: Awake, alert, and oriented. Appears in no acute distress. Sitting comfortably in chair HEENT: Atrauamtic, normocephalic. Eyes are nonicteric. Trachea is midline NECK: No palpable cervical, supraclavicular, or axillary lymphadenopathy CARDIOVASCULAR EXAMINATION: Normal S1, S2. Regular rate and rhythm. no clicks rubs or murmurs RESPIRATORY EXAMINATION: Clear vesicular breath sounds bilaterally. Slightly diminished throughout. No wheezes ,rhonchi, or rales. Symmetric chest expansion ABDOMINAL EXAMINATION: Soft, nondistended. Nontender to palpation in all 4 quadrants. No rebound tenderness or guarding. Normoactive bowel sounds throughout EXTREMITIES: 1+ bilateral pitting edema. Improved from previous examination. Full and equal pulses in bilateral upper and lower extremities SKIN: No rashes or lesions NEUROLOGICAL EXAMINATION: No focal neurological deficits PSYCHIATRIC EXAMINATION: Mood and affect appear appropriate LABORATORY DATA: Please see below. IMAGING: ECHOCARDIOGRAM DATE OF STUDY: 12/02/2018 REFERRING PHYSICIAN: Dr. Darrel Gomez INDICATION: Syncope. HEIGHT: 175 cm WEIGHT: 117 kg Rhythm was sinus with appearance of a right bundle branch block. Appearance of a borderline first degree AV block. Image quality was fair. No pericardial effusion. This was a 2D, M-mode, color flow Doppler and pulse wave Doppler examination and included mitral annular tissue Doppler. 2D MEASUREMENTS: Ventricular septum: 1.67 cm Posterior wall: 1.20 cm Left ventricle diastole: 5.6 cm LVOT: 2.81 cm Left atrium: 3.9 cm Left atrial volume index: 17 DOPPLER MEASUREMENTS: Very mild aortic regurgitation. Moderate aortic stenosis. Aortic valve area 1.44 cm/s (continuity equation, VTI) LVOT velocity 93.2 cm/s LVOT VTI 22.4 cm Aortic valve VTI: 54.0 cm Peak aortic valve gradient: 23 mmHg Mean aortic valve gradient: 14 mmHg Mitral E velocity 70.1 cm/s Mitral A velocity 101 cm/s Very mild tricuspid regurgitation. Estimated right ventricle systolic pressure 27-32 mmHg assuming a right atrial pressure of 5-10 mmHg Pulmonary artery systolic pressure 30 mmHg MITRAL ANNULAR TISSUE DOPPLER: E prime lateral 15.7 cm/s E prime septal 8.2 cm/s CONCLUSIONS: 1. Degenerative, calcific aortic valve disease with severe focal thickening and focal calcific deposits of a three-cuspid aortic valve. No effusion of the aortic cusps. Moderate reduction in aortic cusp mobility. Moderate aortic valve stenosis with aortic valve area calculated to be 1.44 cm squared by continuity equation (VTI) and 1.43 cm/s by planimetry. Very mild aortic regurgitation. 2. Mild-moderate concentric left ventricle hypertrophy. Normal regional LV wall motion and wall thickening. Normal LV systolic function. LVEF 60-65% by visual estimate. Normal LV diastolic function. 3. Moderate mitral annular calcification. No mitral regurgitation or mitral stenosis. After I read this echocardiogram Doppler I spoke directly with Dr. Darrel Gomez by cell phone and communicated the results of this test to him. DD: Xavier Fisher MD [facility] 12/03/1846 DT: NENA 12/03/1853 DS: ANTDA 12/03/181520 <Electronically signed by Xavier Fisher MD> 12/03/181520 DS2: COMPARISON: 11/16/2018 The technique utilized in obtaining the radiograph has magnified the cardiac silhouette and accentuated the interstitial markings. There is cardiomegaly accentuated by technique. The lung arias are clear. The left CP angle has not been included on this portable exam. There is no change in the osseous structures. IMPRESSION: Cardiomegaly with no evidence of acute cardiopulmonary disease. Electronically Signed by Trevor Jasmine DO 12/02/2018 12:45 P PROGNOSIS: Good ACTIVITY: [As tolerated]. DIET: tolerated DISCHARGE PLAN: Patient is to be discharged home with follow-up with his PCP in 1-2 weeks. He is to follow-up with Dr. Fisher of Cardiology in 1-2 weeks. Patient is to return to the ER if his symptoms return DISPOSITION: 01 Home, Self-Care. DISCHARGE CONDITION: [Stable]. TIME SPENT ON DISCHARGE: Greater than 40 minutes. Vital Signs/I&Os Vital Signs Date Time Temp Pulse Resp B/P (MAP) Pulse Ox O2 Delivery O2 Flow Rate FiO2 12/03/18 12:00 98.1 94 18 139/91 (107) 94 12/01/18 20:13 Room Air I&O- Last 24 Hours up to 6 AM 12/03/18 06:00 Intake Total 2215 ml Output Total 2125 ml Balance 90 ml Laboratory Data Labs 24H Laboratory Tests 2 12/03/18 04:53: Immature Granulocyte % (Auto) 1.1, White Blood Count 9.0, Red Blood Count 3.95L, Hemoglobin 13.8, Hematocrit 40.1L, Mean Corpuscular Volume 101.5H, Mean Corpuscular Hemoglobin 34.9H, Mean Corpuscular Hemoglobin Concent 34.4, Red Cell Distribution Width 12.6, Platelet Count 191, Neutrophils (%) (Auto) 55.6, Lymphocytes (%) (Auto) 26.4, Monocytes (%) (Auto) 11.2H, Eosinophils (%) (Auto) 4.8H, Basophils (%) (Auto) 0.9, Neutrophils # (Auto) 5.0, Lymphocytes # (Auto) 2.4, Monocytes # (Auto) 1.0H, Eosinophils # (Auto) 0.4, Basophils # (Auto) 0.1, Nucleated Red Blood Cells % (auto) 0.0, Anion Gap 6L, Glomerular Filtration Rate > 60.0, Blood Urea Nitrogen 19H, Creatinine 0.96, Sodium Level 135L, Potassium Level 4.1, Chloride Level 100, Carbon Dioxide Level 29, Calcium Level 9.1, Magnesium Level 1.8 CBC/BMP Laboratory Tests 12/03/18 04:53 Red Blood Count 3.95 L, Mean Corpuscular Volume 101.5 H, Mean Corpuscular Hemoglobin 34.9 H, Mean Corpuscular Hemoglobin Concent 34.4, Red Cell Distribution Width 12.6, Neutrophils (%) (Auto) 55.6, Lymphocytes (%) (Auto) 26.4, Monocytes (%) (Auto) 11.2 H, Eosinophils (%) (Auto) 4.8 H, Basophils (%) (Auto) 0.9, Neutrophils # (Auto) 5.0, Lymphocytes # (Auto) 2.4, Monocytes # (Auto) 1.0 H, Eosinophils # (Auto) 0.4, Basophils # (Auto) 0.1, Calcium Level 9.1 Discharge Medications Scheduled Allopurinol (Zyloprim) 300 Mg Tab, 300 MG PO DAILY, (Reported) Aspirin (Aspirin EC) 81 Mg Tab, 81 MG PO DAILY, (Reported) Atorvastatin Calcium (Atorvastatin Calcium) 20 Mg Tablet, 20 MG PO DAILY Clopidogrel Bisulfate (Clopidogrel) 75 Mg Tablet, 75 MG PO DAILY, (Reported) Fluticasone Propionate (Flonase Allergy Relief) 9.9 [place].susp, 2 SPRAY NA QHS, (Reported) Magnesium Chloride (Mag64) 64 Mg Tablet.dr, 64 MG PO DAILY, (Reported) Meloxicam (Meloxicam) 15 Mg Tab, 15 MG PO DAILY, (Reported) Omeprazole (Omeprazole) 20 Mg Capsule.dr, 20 MG PO DAILY, (Reported) Spironolactone (Spironolactone) 25 Mg Tablet, 25 MG PO DAILY, (Reported) Allergies Coded Allergies: cephalexin (Verified Allergy, Intermediate, 11/16/18) rash sulfamethoxazole (Verified Allergy, Intermediate, rash, 11/16/18) trimethoprim (Verified Allergy, Intermediate, rash, 11/16/18) BUZZ MARQUEZ DO Dec 03, 2018 18:26
== END 2018-12-03 13:37 | disposition home or self-care (01) ==
LOC: M ED 13:38 → M ED INP 13:39 → M PCU 20:23
PROVIDERS: ADMIT Internal Medicine; ATTEND Internal Medicine
DX: R55 Syncope and collapse (principal); I10 Essential (primary) hypertension; E78.49 Other hyperlipidemia; M10.9 Gout, unspecified; M13.88 Other specified arthritis, other site; K21.9 Gastro-esophageal reflux disease without esophagitis; I06.9 Rheumatic aortic valve disease, unspecified; Z79.82 Long term (current) use of aspirin; Z79.899 Other long term (current) drug therapy; Z88.1 Allergy status to other antibiotic agents
CPT/HCPCS: 36415; 71045; 80048; 80061; 80076; 82550; 82553; 83036; 83690; 83735; 83880; 84443; 84484; 85025; 93005; 93041; 93306; 94760; 96372; 96374; 96376; 97161; 99285; G0378; J1650; J1940

== ENCOUNTER → 2019-01-08 | Outpatient (REF) | payer MEDICARE ==
[~2019-01-08] MED LIST changes: +ATOR1TAB21 PO; +CLOP75TA2 PO; +FLON1SPR; +MAGN64TASA PO; +OMEP-172 PO; -OMEP20CA4 PO; +SPIR-10 PO
[2019-01-08 10:44] LABS: APPEARANCE, URINE CLEAR (CLEAR); BACTERIA, URINE AUTO NEGATIVE (NEGATIVE); BILIRUBIN, URINE AUTO NEGATIVE (NEGATIVE); BLOOD, URINE BLOOD NEGATIVE (NEGATIVE); COLOR, URINE YELLOW (YELLOW); GLUCOSE, URINE (UA) AUTO NEGATIVE (NEGATIVE); KETONE, URINE AUTO NEGATIVE (NEGATIVE); LEUKOCYTE ESTERASE, URINE AUTO NEGATIVE (NEGATIVE); MUCUS, URINE SMALL (NEGATIVE); NITRITE, URINE AUTO NEGATIVE (NEGATIVE); PROTEIN, URINE AUTO NEGATIVE (NEGATIVE); RBC, URINE AUTO 2 /HPF (0-3); SPECIFIC GRAVITY URINE AUTO 1.015 (1.002-1.035); SQUAMOUS EPITHELIAL CELL UR AU 0 /HPF (0-6); UROBILINOGEN, URINE AUTO 0.2 mg/dL (0.0-2.0); WBC, URINE AUTO 1 /HPF (0-3)
[2019-01-08 11:10] LABS: ALBUMIN 3.5 GM/DL (3.2-5.2); ALT/SGPT 30 U/L (12-78); BILIRUBIN,TOTAL 0.5 MG/DL (0.2-1.0); BLOOD UREA NITROGEN 13 MG/DL (7-18); CALCIUM LEVEL 9.4 MG/DL (8.8-10.2); CARBON DIOXIDE LEVEL 32 MEQ/L (21-32); CHLORIDE LEVEL 105 MEQ/L (98-107); CPK CREATINE PHOSPHOKINASE 80 U/L (39-308); CREATININE FOR GFR 0.87 MG/DL (0.70-1.30); GLOMERULAR FILTRATION RATE > 60.0 (>42); GLUCOSE, FASTING 91 MG/DL (70-100); POTASSIUM SERUM 4.7 MEQ/L (3.5-5.1); SODIUM LEVEL 142 MEQ/L (136-145); TOTAL PROTEIN 6.9 GM/DL (6.4-8.2)
== END ==
LOC: M SFHCPLAZ 08:00
PROVIDERS: ATTEND Internal Medicine
DX: R10.9 Unspecified abdominal pain (principal); E78.00 Pure hypercholesterolemia, unspecified
CPT/HCPCS: 36415; 80053; 81001; 82550; 87086; G0463

== ENCOUNTER → 2019-01-14 | Outpatient (CLI) | payer MEDICARE ==
--- NOTE | 2019-01-14 12:36 | REP ---
RENAL ULTRASOUND: Real-time sonographic evaluation of the kidneys performed. Kidneys appear normal in size and echotexture, right kidney measuring 10.8 x 5.8 x 5.7 cm and left kidney 11.2 x 4.6 x 5.5 cm. There is no hydronephrosis or renal mass bilaterally. Urinary bladder is mildly distended and there are bilateral ureteral jets in the urinary bladder with Doppler color evaluation. IMPRESSION: Negative renal ultrasound. Electronically Signed by Hayden Estrada MD 01/14/2019 12:49 P
== END ==
LOC: M RAD 11:50
PROVIDERS: ATTEND Internal Medicine
DX: R10.9 Unspecified abdominal pain (principal); N20.0 Calculus of kidney

== ENCOUNTER → 2019-02-25 | Outpatient (CLI) | payer MEDICARE ==
[2019-02-25 10:17] LABS: APPEARANCE, URINE CLEAR (CLEAR); BACTERIA, URINE AUTO NEGATIVE (NEGATIVE); BILIRUBIN, URINE AUTO NEGATIVE (NEGATIVE); BLOOD, URINE BLOOD 1+ (NEGATIVE); COLOR, URINE YELLOW (YELLOW); GLUCOSE, URINE (UA) AUTO NEGATIVE (NEGATIVE); KETONE, URINE AUTO NEGATIVE (NEGATIVE); LEUKOCYTE ESTERASE, URINE AUTO NEGATIVE (NEGATIVE); MUCUS, URINE SMALL (NEGATIVE); NITRITE, URINE AUTO NEGATIVE (NEGATIVE); PROTEIN, URINE AUTO NEGATIVE (NEGATIVE); RBC, URINE AUTO 2 /HPF (0-3); SPECIFIC GRAVITY URINE AUTO 1.015 (1.002-1.035); SQUAMOUS EPITHELIAL CELL UR AU 0 /HPF (0-6); UROBILINOGEN, URINE AUTO 0.2 mg/dL (0.0-2.0); WBC, URINE AUTO 1 /HPF (0-3)
[2019-02-25 12:15] LABS: ALBUMIN 3.5 GM/DL (3.2-5.2); ALT/SGPT 20 U/L (12-78); BILIRUBIN,TOTAL 0.4 MG/DL (0.2-1.0); BLOOD UREA NITROGEN 13 MG/DL (7-18); CALCIUM LEVEL 9.3 MG/DL (8.8-10.2); CARBON DIOXIDE LEVEL 25 MEQ/L (21-32); CHLORIDE LEVEL 105 MEQ/L (98-107); CPK CREATINE PHOSPHOKINASE 80 U/L (39-308); CREATININE FOR GFR 0.96 MG/DL (0.70-1.30); GLOMERULAR FILTRATION RATE > 60.0 (>42); GLUCOSE, FASTING 98 MG/DL (70-100); POTASSIUM SERUM 4.5 MEQ/L (3.5-5.1); SODIUM LEVEL 139 MEQ/L (136-145)
[2019-02-28 15:51] LABS: CHOLESTEROL LEVEL 133 MG/DL (<200); CHOLESTEROL RISK RATIO 2.714 (<5); HDL CHOLESTEROL 49 MG/DL (>40); LDL CHOLESTEROL 57 MG/DL (<100); NON-HDL-C 84 MG/DL; TRIGLYCERIDES LEVEL 137 MG/DL (<150)
== END ==
LOC: M PLALAB 08:38
PROVIDERS: ATTEND Internal Medicine
DX: R10.9 Unspecified abdominal pain (principal); E78.00 Pure hypercholesterolemia, unspecified

== ENCOUNTER → 2019-06-03 | Outpatient (REF) | payer MEDICARE ==
[~2019-06-03] MED LIST changes: -OMEP-172 PO; +OMEP1CAP73 PO
[2019-06-03 11:00] LABS: CHOLESTEROL LEVEL 134 MG/DL (<200); CHOLESTEROL RISK RATIO 2.734 (<5); HDL CHOLESTEROL 49 MG/DL (>40); LDL CHOLESTEROL 57 MG/DL (<100); NON-HDL-C 85 MG/DL; TRIGLYCERIDES LEVEL 139 MG/DL (<150)
[2019-06-06 12:15] LABS: BLOOD UREA NITROGEN 17 MG/DL (7-18); CARBON DIOXIDE LEVEL 28 MEQ/L (21-32); CHLORIDE LEVEL 109 MEQ/L (98-107); GLOMERULAR FILTRATION RATE > 60.0 (>42); GLUCOSE, FASTING 93 MG/DL (70-100); POTASSIUM SERUM 4.4 MEQ/L (3.5-5.1); SODIUM LEVEL 142 MEQ/L (136-145)
[2019-06-06 12:16] LABS: ALBUMIN 3.8 GM/DL (3.2-5.2); ALT/SGPT 21 U/L (12-78); BILIRUBIN,TOTAL 0.5 MG/DL (0.2-1.0); CALCIUM LEVEL 9.2 MG/DL (8.8-10.2); MAGNESIUM LEVEL 1.9 MG/DL (1.8-2.4); TOTAL PROTEIN 7.1 GM/DL (6.4-8.2); URIC ACID 3.9 MG/DL (3.5-7.2)
== END ==
LOC: M SFHCPLAZ 08:33
PROVIDERS: ATTEND Internal Medicine
DX: E78.00 Pure hypercholesterolemia, unspecified (principal)

== ENCOUNTER → 2019-12-08 | Outpatient (REF) | payer MEDICARE ==
[2019-12-08 10:48] LABS: HEMATOCRIT 41.2 % (42.0-52.0); HEMOGLOBIN 13.5 g/dl (13.5-17.5); MEAN CORPUSCULAR HEMOGLOBIN 33.2 pg (27.0-33.0); MEAN CORPUSCULAR HGB CONC 32.8 g/dl (32.0-36.5); MEAN CORPUSCULAR VOLUME 101.2 fl (80.0-96.0); PLATELET COUNT, AUTOMATED 198 10^3/uL (150-450); RED BLOOD COUNT 4.07 10^6/uL (4.30-6.10); WHITE BLOOD COUNT 7.4 10^3/uL (4.0-10.0)
[2019-12-08 11:12] LABS: ALBUMIN 3.3 GM/DL (3.2-5.2); ALT/SGPT 17 U/L (12-78); BILIRUBIN,TOTAL 0.5 MG/DL (0.2-1.0); BLOOD UREA NITROGEN 16 MG/DL (7-18); CALCIUM LEVEL 9.1 MG/DL (8.8-10.2); CARBON DIOXIDE LEVEL 30 MEQ/L (21-32); CHLORIDE LEVEL 106 MEQ/L (98-107); CHOLESTEROL LEVEL 129 MG/DL (<200); CHOLESTEROL RISK RATIO 2.804 (<5); CREATININE FOR GFR 0.97 MG/DL (0.70-1.30); GLOMERULAR FILTRATION RATE > 60.0 (>42); GLUCOSE, FASTING 98 MG/DL (70-100); HDL CHOLESTEROL 46 MG/DL (>40); LDL CHOLESTEROL 46 MG/DL (<100); MAGNESIUM LEVEL 1.9 MG/DL (1.8-2.4); NON-HDL-C 83 MG/DL; POTASSIUM SERUM 4.6 MEQ/L (3.5-5.1); SODIUM LEVEL 140 MEQ/L (136-145); TOTAL PROTEIN 6.5 GM/DL (6.4-8.2); TRIGLYCERIDES LEVEL 184 MG/DL (<150)
== END ==
LOC: M PLALAB 09:05
PROVIDERS: ATTEND Internal Medicine
DX: G47.33 Obstructive sleep apnea (adult) (pediatric) (principal); I10 Essential (primary) hypertension; E78.00 Pure hypercholesterolemia, unspecified

== ENCOUNTER → 2020-01-06 | Outpatient (CLI) | payer MEDICARE ==
[2020-01-06 14:17] LABS: BLOOD UREA NITROGEN 20 MG/DL (7-18); CALCIUM LEVEL 9.5 MG/DL (8.8-10.2); CARBON DIOXIDE LEVEL 29 MEQ/L (21-32); CHLORIDE LEVEL 106 MEQ/L (98-107); CREATININE FOR GFR 0.94 MG/DL (0.70-1.30); GLOMERULAR FILTRATION RATE > 60.0 (>42); GLUCOSE, FASTING 93 MG/DL (70-100); MAGNESIUM LEVEL 1.9 MG/DL (1.8-2.4); POTASSIUM SERUM 4.6 MEQ/L (3.5-5.1); SODIUM LEVEL 140 MEQ/L (136-145)
== END ==
LOC: M PLALAB 09:10
PROVIDERS: ATTEND Physician Assistant
DX: I50.32 Chronic diastolic (congestive) heart failure (principal); E83.42 Hypomagnesemia

== ENCOUNTER → 2020-03-03 | Outpatient (CLI) | payer MEDICARE ==
[~2020-03-03] MED LIST changes: +BUSP10TA PO; +ROSU10TA6 PO
== END ==
LOC: M LABSMTC 10:44
PROVIDERS: ATTEND Anesthesiology
DX: Z01.812 Encounter for preprocedural laboratory examination (principal); Z20.822 Contact with and (suspected) exposure to COVID-19

== ENCOUNTER 2020-03-08 07:15 | Day surgery (SDC) | payer MEDICARE ==
[~2020-03-08] VITALS: Ht 175.3 cm; Wt 120.7 kg
[~2020-03-08 07:15] MED LIST changes: +NS 1,000 ML IV ONE
[2020-03-08] MEDS ORDERED: LIDOCAINE 2% 100MG/5ML SDV (FOR ANES.) As Ordered ONE (07:18)
[2020-03-08] MEDS ORDERED: propofoL 200 MG/20 ML VIAL As Ordered ONE ×2 (07:18→07:56)
--- OUTSIDE RECORDS SUMMARY | 2020-03-08 07:20 | CCD | Continuity of Care Document ---
Author Author Marcelo KILLIAN M.D. Organization Unknown Address [address] [place] [address] Phone [phone] Care Team Providers Care Production Engineer Name Role Phone Patric Ford M.D. AUTM [phone] Problems Active Problems Provider Date History of polyp of colon Angel Killian M.D. Onset: Dysphagia Angel Killian M.D. Onset: 05/23/19 18 Social History Type Date Description Comments Sex Unknown ETOH Use Occasionally Tobacco Use Start: Unknown End: Unknown Patient is a former smoker Allergies, Adverse Reactions, Alerts Active Allergies Reaction Severity Comments Date Bactrim 11/03/2014 Keflex 11/03/2014 Medications Active Medications SIG Qnty Indications Ordering Provide r Date Suprep Bowel Prep Kit 17.5-3.13-1.6GM/177ML Solution use as directed 354ml Angel Killian M.D. 02/24/2020 Mag 64 qd Unknown Aspirin 81mg Tablets qd Unknown Allopurinol 300mg Tablets qd Unknown Meloxicam 15mg Tablets qd Unknown Spironolactone 25mg Tablets Take One Tablet By Mouth Daily Unknown Clopidogrel Bisulfate 75mg Tablets Take One Tablet By Mouth Once Daily Unknown [address] Take One Capsule By Mouth Once Daily Unknown Buspirone HCL 10mg Tablets Take One Tablet By Mouth Twice Daily For anxiety Unknown Rosuvastatin Calcium 10mg Tablets Take One Tablet By Mouth Once Daily Unknown B12 Fast Dissolve 5000mcg Tablets Dispers Unknown D3 High Potency 50mcg (2000 Ut) Ca psules Unknown Natural Fiber Laxative 28.3% Powder Unknown Immunizations Description No Information Available Vital Signs Date Vital Result Comment 02/24/2020 10:30am Height 70 inches 5'10" Weight 266.00 lb BP Systolic 109 mmHg BP Diastolic 80 mmHg Heart Rate 84 /min BMI (Body Mass Index) 38.2 kg/m2 Weight 120.658 kg Body Temperature 97.2 F 11/16/2017 11:59am Height 70 inches 5'10" Weight 264.00 lb BP Systolic 150 mmHg BP Diastolic 51 mmHg Heart Rate 78 /min BMI (Body Mass Index) 37.9 kg/m2 Weight 119.750 kg Results Description No Information Available Procedures Description No Information Available Medical Devices Description No Information Available Encounters Type Date Location Provider Dx Diagnosis Office Visit 02/24/2020 10:15a Main Office Angel Killian M.D. Z 86.010 Personal history of colonic polyps Assessments Date Code Description Provider 02/24/2020 Z86.010 Personal history of colonic poly ps Angel Killian M.D. Plan of Treatment Future Appointment(s):* 03/08/2020 9:30 am - Angel Killian M.D. at Main Office 02/24/2020 - Angel Killian M.D.* Z86.010 Personal history of colonic polyps* Comments:* 74 yo wm who presents for colon cancer screening, and colonic polyps. No weight loss, change in bowel habits, or rectal bleeding. No family h/o colon cancer. Positive for occult blood. Last scope was in 2018. Plan:1.Schedule patient for Colonoscopy. 2. Informed consent given.3. Advised to stop asa, plavix,and anticoagulation 3 to 7 days prior to the procedures. Functional Status Description No Information Available Mental Status Description No Information Available Referrals Description No Information Available
--- OUTSIDE RECORDS SUMMARY | 2020-03-08 07:21 | CCD | Continuity of Care Document ---
Author Author Marcelo KILLIAN M.D. Organization Unknown Address [address] [place] [address] Phone [phone] Care Team Providers Care Assembler [employer] Name Role Phone Patric Ford M.D. AUTM [phone] Problems Active Problems Provider Date History of [...] Medical Devices Description No Information Available Encounters Description No Information Available Assessments Date Code Description Provider 02/24/2020 Z86.010 Personal history of colonic poly ps Angel Killian M.D. Plan of Treatment Future Appointment(s):* 03/01/2020 6:45 am - [facility] at Main Office * 03/08/2020 9:30 am - Angel Killian M.D. [...]
--- OUTSIDE RECORDS SUMMARY | 2020-03-08 07:21 | CCD | Continuity of Care Document ---
Author Author Marcelo CHAMORROC Organization Unknown Address [address] [place] [address], [place] [address] Phone [phone] Care Team Providers Care Teletypewriter Operator Name Role Phone Patric Ford MD AUTM [phone] Brisa Tan MD AUTM [phone] Problems Active Problems Provider Date Coronary arteriosclerosis Ainsley Chamorro PA-C Onset: 2019 Patient post percutaneous transluminal coronary angiop lasty Ainsley Chamorro PA-C Onset: 2019 Aortic valve stenosis with insufficiency HILARY Freeman Onset: 2019 Chronic diastolic heart failure Ainsley Chamorro PA-C Onset: 2019 Electrocardiogram abnormal Xavier Fisher MD Onset: 11/28 First degree atrioventricular block Xavier Fihser MD Ons et: 11/28/2018 Right bundle branch block Xavier Fisher MD Onset: 2018 Pure hypercholesterolemia Xavier Fisher MD Onset: 2018 Obstructive sleep apnea syndrome Ainsley Chamorro PA-C Onset: 2019 Dietary management surveillance Ainsley Chamorro PA-C Onset: 01/09/2020 Social History Type Date Description Comments Sex Unknown ETOH Use Occasionally consumes beer Tobacco Use Start: Unknown End: Unknown Patient is a former smoker up to 3 ppd x20 yrs; quit 1978 Smoking Status Reviewed: 01/09/20 Patient is a former smoker up to 3 ppd x20 yrs; quit 1978 Exercise Type/Frequency Stationary Bike daily Exercise Type/Frequency General Activities Daily Exercise Type/Frequency Does yardwork sporadical ly Exercise Limitations Shortness Of Breath Allergies, Adverse Reactions, Alerts Active Allergies Reaction Severity Comments Date Bactrim rash 11/28/2018 Keflex rash 11/28/2018 Medications Active Medications SIG Qnty Indications Ordering Provide r Date Spironolactone 25mg Tablets 1/2 by mouth every day Patric Ford MD 01/08/2020 Fluticasone Propionate 50mcg/Act Suspension 1 spray each nostril daily as needed Patric Velazco MD 01/08/2020 Nitrostat 0.4mg Tablets Sub 1 sl every 5min x3 as needed for chest pain 25tabs I25.10 Shar Torres MD 2019 Rosuvastatin Calcium 10mg Tablets 1 by mouth every night at bedtime Unknown Omeprazole 20mg Capsules DR 1 by mouth every day Unknown 01/05/2019 Buspirone HCL 10mg Tablets 1 by mouth twice every day Patric Ford MD 12/25/[address] 1 by mouth once a day Unknown 11/27/2018 Fiber 625mg Tablets as direct ed Unknown 11/27/2018 Vitamin D3 25mcg (1000 Ut) Capsule s 2 by mouth every day Unknown 11/27/2018 Vitamin B-12 5000mcg Tablets Sub 1 by mouth every day Unknown 11/27/2018 Meloxicam 15mg Tablets 1 po qd prn for joint pain Shar Torres MD 08/31/2010 Allopurinol 300mg Tablets 1 P O daily Unknown 12/09/2007 Aspir-[address] 1 PO daily Unknown 12/09/2007 History Medications Spironolactone 25mg Tablets Take One Tablet By Mouth Once Daily 30tabs Xavier Fisher MD 11/06/2019 - 01/08/2020 Immunizations Description No Information Available Vital Signs Date Vital Result Comment 01/09/2020 10:42am Weight 263.00 lb Home Weight 255lb Height 69 inches 5'9" BMI (Body Mass Index) 38.8 kg/m2 Heart Rate 76 /min Regular Respiratory Rate 16 /min BP Systolic Right Arm 116 mmHg sitting, large cuf f BP Diastolic Right Arm 64 mmHg sitting, large cu ff BP Systolic Left Arm 112 mmHg sitting BP Diastolic Left Arm 64 mmHg sitting 2019 10:37am Weight 263.00 lb Home Weight 255lb home weight Height 69 inches 5'9" BMI (Body Mass Index) 38.8 kg/m2 Heart Rate 64 /min Regular Respiratory Rate 16 /min BP Systolic Right Arm 116 mmHg sitting, large cuf f BP Diastolic Right Arm 66 mmHg sitting, large cu ff BP Systolic Left Arm 112 mmHg sitting BP Diastolic Left Arm 66 mmHg sitting Results Test Acquired Date Facility Test Result H/L Range Note Basic Metabolic Profile 01/06/2020 [facility] [phone] Glucose, Fasting 93 mg/dL Normal 70-100 Blood Urea Nitrogen 20 mg/dL High 7-18 Creatinine For GFR 0.94 mg/dL Normal 0.70-1.30 Glomerular Filtration Rate > 60.0 Normal >42 1 Sodium Level 140 mEq/L Normal 136-145 Potassium Serum 4.6 mEq/L Normal 3.5-5.1 Chloride Level 106 mEq/L Normal 98-107 Carbon Dioxide Level 29 mEq/L Normal 21-32 Anion Gap 5 mEq/L Low 8-16 Calcium Level 9.5 mg/dL Normal 8.8-10.2 Laboratory test finding 01/06/2020 [facility] [phone] Magnesium Level 1.9 mg/dL Normal 1.8-2.4 1 Units are mL/min/1.73 m2 Chronic Kidney Disease Staging per NKF: Stage I & II GFR >=60 Normal to Mildly Decreased Stage III GFR 30-59 Moderately Decreased Stage IV GFR 15-29 Severely Decreased Stage V GFR <15 Very Little GFR Left ESRD GFR <15 on [employer] Procedures Date Code Description Status 01/09/2020 54797 ECG 12-Lead Completed 12/04/2019 38000 Echocardiogram 2-D Doppler Color Completed Medical Devices Description No Information Available Encounters Type Date Location Provider Dx Diagnosis Office Visit 01/09/2020 10:45a Main Office Ainsley Chamorro PA-C I25.1 0 Athscl heart disease of [place] coronary artery w/o ang pctrs Z95.5 Presence of coronary angiopl asty implant and graft I35.2 Nonrheumatic aortic (valve) stenosis with insufficiency I50.32 Chronic diastolic (congestiv e) heart failure R94.31 Abnormal electrocardiogram [ ECG] [EKG] I44.0 Atrioventricular block, firs t degree I45.19 Other right bundle-branch bl ock E78.00 Pure hypercholesterolemia, u nspecified G47.33 Obstructive sleep apnea (dima lt) (pediatric) Z71.3 Dietary counseling and surve illance Office Visit 11/10/2019 11:25a Main Office Xavier Fisher MD I35.2 Nonrheumatic aortic (valve) stenosis with insufficiency I50.32 Chronic diastolic (congestiv e) heart failure E78.00 Pure hypercholesterolemia, u nspecified G47.33 Obstructive sleep apnea (dima lt) (pediatric) Office Visit 10/13/2019 3:20p Main Office Xavier Fisher MD I25.1 0 Athscl heart disease of [place] coronary artery w/o ang pctrs Z95.5 Presence of coronary angiopl asty implant and graft I35.2 Nonrheumatic aortic (valve) stenosis with insufficiency I50.32 Chronic diastolic (congestiv e) heart failure Office Visit 09/08/2019 11:40a Main Office Xavier Fisher MD I25.1 0 Athscl heart disease of [place] [facility] Z95.5 Presence of coronary angiopl asty implant and graft I35.2 Nonrheumatic aortic (valve) stenosis with insufficiency I50.32 Chronic diastolic (congestiv e) heart failure Office Visit 08/07/2019 9:30a Main Office Xavier Fisher MD I25.1 0 Athscl heart disease of [place] coronary artery w/o ang pctrs Z95.5 Presence of coronary angiopl asty implant and graft I35.2 Nonrheumatic aortic (valve) stenosis with insufficiency I50.32 Chronic diastolic (congestiv e) heart failure Assessments Date Code Description Provider 01/09/2020 I25.10 Atherosclerotic hear t disease of [place] coronary artery without angina pectoris Ainsley Chamorro PA-C 01/09/2020 Z95.5 Presence of coronary angioplasty implant and graft Ainsley Chamorro PA-C 01/09/2020 I35.2 Nonrheumatic aortic (valve) sten osis with insufficiency Ainsley Chamorro PA-C 01/09/2020 I50.32 Chronic diastolic (congestive) h eart failure Ainsley Chamorro PA-C 01/09/2020 R94.31 Abnormal electrocardiogram [ECG] [EKG] Ainsley Chamorro PA-C 01/09/2020 I44.0 Atrioventricular block, first de gree Ainsley Chamorro PA-C 01/09/2020 I45.19 Other right bundle-branch block Ainsley Chamorro, PA-C 01/09/2020 E78.00 Pure hypercholesterolemia, unspe cified Ainsley Chamorro, PA-C 01/09/2020 G47.33 Obstructive sleep apnea (adult) (pediatric) Ainsley Chamorro, PA-C 01/09/2020 Z71.3 Dietary counseling and surveilla nce Ainsley Chamorro, PA-C 12/12/2019 I35.2 Nonrheumatic aortic (valve) sten osis with insufficiency Xavier Fisher MD 12/12/2019 I50.32 Chronic diastolic (congestive) h eart failure Xavier Fisher MD 12/12/2019 E78.00 Pure hypercholesterolemia, unspe cified Xavier Fisher MD 12/12/2019 G47.33 Obstructive sleep apnea (adult) (pediatric) Xavier Fisher MD 12/04/2019 I35.2 Nonrheumatic aortic (valve) sten osis with insufficiency ECHO 11/27/2019 I35.2 Nonrheumatic aortic (valve) sten osis with insufficiency Xavier Fisher MD 11/27/2019 I50.32 Chronic diastolic (congestive) h eart failure Xavier Fisher MD 11/27/2019 E78.00 Pure hypercholesterolemia, unspe cified Xavier Fisher MD 11/27/2019 G47.33 Obstructive sleep apnea (adult) (pediatric) Xavier Fisher MD 11/10/2019 I35.2 Nonrheumatic aortic (valve) sten osis with insufficiency Xavier Fisher MD 11/10/2019 I50.32 Chronic diastolic (congestive) h eart failure Xavier Fisher MD 11/10/2019 E78.00 Pure hypercholesterolemia, unspe cified Xavier Fisher MD 11/10/2019 G47.33 Obstructive sleep apnea (adult) (pediatric) Xavier Fisher MD 10/13/2019 I25.10 Atherosclerotic hear t disease of [place] coronary artery without angina pectoris Xavier Fisher MD 10/13/2019 Z95.5 Presence of coronary angioplasty implant and graft Xavier Fisher MD 10/13/2019 I35.2 Nonrheumatic aortic (valve) sten osis with insufficiency Xavier Fisher MD 10/13/2019 I50.32 Chronic diastolic (congestive) h eart failure Xavier Fisher MD 09/08/2019 I25.10 Atherosclerotic hear t disease of [place] coronary artery without angina pectoris Xavier Fisher MD 09/08/2019 Z95.5 Presence of coronary angioplasty implant and graft Xavier Fisher MD 09/08/2019 I35.2 Nonrheumatic aortic (valve) sten osis with insufficiency Xavier Fisher MD 09/08/2019 I50.32 Chronic diastolic (congestive) h eart failure Xavier Fisher MD 08/07/2019 I25.10 Atherosclerotic hear t disease of [place] coronary artery without angina pectoris Xavier Fisher MD 08/07/2019 Z95.5 Presence of coronary angioplasty implant and graft Xavier Fisher MD 08/07/2019 I35.2 Nonrheumatic aortic (valve) sten osis with insufficiency Xavier Fisher MD 08/07/2019 I50.32 Chronic diastolic (congestive) h eart failure Xavier Fisher MD Plan of Treatment Future Appointment(s):* 07/08/2020 10:45 am - Ainsley Chamorro PA-C at Main Office 01/09/2020 - Ainsley Chamorro PA-C* I25.10 Atherosclerotic heart disease of [place] coronary artery without angina pectoris* Recommendations:* Discontinue clopidogrel. * Z95.5 Presence of coronary angioplasty implant and graft * I35.2 Nonrheumatic aortic (valve) stenosis with insufficiency * I50.32 Chronic diastolic (congestive) heart failure* Recommendations:* Follow a 2 grams sodium diet and 50 ounces fluid restriction per 24 hour and do daily weights. Call the office for weight gain of 3 lbs or more. * R94.31 Abnormal electrocardiogram [ECG] [EKG] * I44.0 Atrioventricular block, first degree * I45.19 Other right bundle-branch block * E78.00 Pure hypercholesterolemia, unspecified * G47.33 Obstructive sleep apnea (adult) (pediatric) * Z71.3 Dietary counseling and surveillance* Recommendations:* Follow a low fat/low cholesterol diet and do at least 30 minutes of sustained aerobic activity daily. * All * Follow up:* 6 month follow up. Functional Status Functional Condition Comment Date Status Independent with all ADL's Activ e Mental Status Description No Information Available Referrals Description No Information Available
--- OUTSIDE RECORDS SUMMARY | 2020-03-08 07:21 | CCD | Continuity of Care Document ---
Author Author Marcelo CARTER DPM Organization Unknown Address [address] [place] [address] [address] [place] [address] Phone [phone] Care Team Providers Care Dormitory Keeper Name Role Phone Patric Ford M.D.Tong [phone] Problems Description No Information Available Social History Type Date Description Comments Sex Unknown ETOH Use Consumes 3-4 beers per week Tobacco Use Start: Unknown End: Unknown Patient is a former smoker 30 year hx smoking 3ppds quit 1994 Allergies, Adverse Reactions, Alerts Active Allergies Reaction Severity Comments Date Bactrim rash 12/30/2019 Keflex rash 12/30/2019 Medications Active Medications SIG Qnty Indications Ordering Provide r Date Clopidogrel Bisulfate 75mg Tablets Take One Tablet By Mouth Once Daily Unknown 0 Rosuvastatin Calcium 10mg Tablets Take One Tablet By Mouth Once Daily Unknown Spironolactone 25mg Tablets Take One Tablet By Mouth Once Daily Unknown Buspirone HCL 10mg Tablets Take One Tablet By Mouth Twice Daily For anxiety Unknown Omeprazole 20mg Capsules DR Take One Capsule By Mouth Once Daily Unknown Meloxicam 15mg Tablets Take One Tablet By Mouth Once Daily Unknown Allopurinol 300mg Tablets Take One Tablet By Mouth Once Daily Unknown Fluticasone Propionate 50mcg/Act Suspension Use Two Sprays In Each Nostril Once Daily Unknown Nitroglycerin 0.4mg Tablets Sub Dissolve 1 Tablet Under The Tongue Every 5 Minutes as Needed For Chest Pain. DO Not Exceed A Total Of 3 Doses In 15 Minutes. 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 B35.1 Tinea unguium Assessments Date Code Description Provider 12/30/2019 M21.272 Flexion deformity, left ankle an d toes Nathaniel Carter DPM 12/30/2019 G62.89 Other specified polyneuropathies Nathaniel Carter DPM 12/30/2019 B35.1 Tinea unguium Nathaniel Carter DPM Plan of Treatment Future Appointment(s):* 03/09/2020 2:00 pm - Nathaniel Catrer DPM at [facility] Functional Status Description No Information Available Mental Status Description No Information Available Referrals Description No Information Available
--- OUTSIDE RECORDS SUMMARY | 2020-03-08 07:21 | CCD | Continuity of Care Document ---
Author Author Marcelo CHAMORRO PA-C Organization Unknown Address [address] [place] [address], [place] [address] Phone [phone] Care Team Providers Care Micromatic Hone Operator Name Role Phone Patric Ford MD AUTM [phone] Brisa Tan MD AUTM [phone] Problems Active Problems Provider Date Coronary arteriosclerosis Ainsley Chamorro PA-C Onset: 2019 Patient post percutaneous transluminal coronary angiop lasty Ainsley Chamorro PA-C Onset: 2019 Aortic valve stenosis with insufficiency HILARY Freeman Onset: 2019 Chronic diastolic heart failure Ainsley Chamorro PA-C Onset: 2019 Electrocardiogram abnormal Xavier Fisher MD Onset: 11/28 First degree atrioventricular block Xavier Fisher MD Ons et: 11/28/2018 Right bundle branch block Xavier Fisher MD Onset: 2018 Pure hypercholesterolemia Xavier Fisher MD Onset: 2018 Obstructive sleep apnea syndrome Ainsley Chamorro PA-C Onset: 2019 Social History Type Date Description Comments Sex Unknown ETOH Use Occasionally consumes beer Tobacco Use Start: Unknown End: Unknown Patient is a former smoker Smoked for about 20 years, smoked up to 3ppd Smoking Status Reviewed: 07/09/19 Patient is a former smoker Sm oked for about 20 years, smoked up to 3ppd Exercise Type/Frequency Stationary Bike daily Exercise Type/Frequency General Activities Daily Exercise Type/Frequency Does yardwork sporadical ly Exercise Limitations Shortness Of Breath Allergies, Adverse Reactions, Alerts Active Allergies Reaction Severity Comments Date Bactrim rash 11/28/2018 Keflex rash 11/28/2018 Medications Active Medications SIG Qnty Indications Ordering Provide r Date Spironolactone 25mg Tablets Take One Tablet By Mouth Once Daily 30tabs Xavier Fisher MD 11/06/2019 Nitrostat 0.4mg Tablets Sub 1 sl every 5min x3 as needed for chest pain 25tabs I25.10 Shar Torres MD 2019 Rosuvastatin Calcium 10mg Tablets 1 by mouth every night at bedtime Unknown Omeprazole 20mg Capsules DR 1 by mouth every day Unknown 01/05/2019 Buspirone HCL 10mg Tablets 1 by mouth twice every day Patric Ford MD 12/25/2018 Clopidogrel Bisulfate 75mg Tablets 1 by mouth every day 30tabs Xavier Fisher MD 11/28/[address] 1 by mouth [...] Tablets DR 1 PO daily Unknown 12/09/2007 Immunizations Description No Information Available Vital Signs Date Vital Result Comment 2019 10:37am Weight 263.00 lb Home Weight 255lb home weight Height 69 inches 5'9" BMI (Body Mass Index) 38.8 kg/m2 Heart Rate 64 /min Regular Respiratory Rate 16 /min BP Systolic Right Arm 116 mmHg sitting, large cuf f BP Diastolic Right Arm 66 mmHg sitting, large cu ff BP Systolic Left Arm 112 mmHg sitting BP Diastolic Left Arm 66 mmHg sitting 01/06/2019 9:45am Weight 259.00 lb Home Weight 255lb Height 69 inches 5'9" BMI (Body Mass Index) 38.2 kg/m2 Heart Rate 64 /min BP Systolic Sitting 113 mmHg Omron large adult cu ff, [place] BP Diastolic Sitting 70 mmHg Omron large adult c uff, [place] Results Test Acquired Date Facility Test Result H/L Range Note Basic Metabolic Profile 01/06/2020 [facility] [phone] Glucose, Fasting 93 mg/dL Normal 70-100 Blood [...] mg/dL Normal 8.8-10.2 Laboratory test finding 01/06/2020 [facility] [phone] Magnesium Level 1.9 mg/dL Normal 1.8-2.4 1 Units are mL/min/1.73 m2 Chronic Kidney Disease Staging per NKF: Stage I & II GFR >=60 Normal to Mildly Decreased Stage III GFR 30-59 Moderately Decreased Stage IV GFR 15-29 Severely Decreased Stage V GFR <15 Very Little GFR Left ESRD GFR <15 on [employer] Procedures Date Code Description Status 12/04/2019 33173 Echocardiogram 2-D Doppler Color Completed 2019 13569 ECG 12-Lead Completed Medical Devices Description No Information Available Encounters Type Date Location Provider Dx Diagnosis Office Visit 11/10/2019 11:25a Main Office Xavier Fisher MD I35.2 Nonrheumatic aortic (valve) stenosis with insufficiency I50.32 Chronic diastolic (congestiv e) heart failure E78.00 Pure hypercholesterolemia, u nspecified G47.33 Obstructive sleep apnea (dima lt) (pediatric) Office Visit 10/13/2019 3:20p Main Office Xavier Fisher MD I25.1 0 Athscl heart disease of [place] coronary artery w/o ang pctrs Z95.5 Presence of coronary angiopl asty implant and graft I35.2 Nonrheumatic aortic (valve) stenosis with insufficiency I50.32 Chronic diastolic (congestiv e) heart failure Office Visit 09/08/2019 11:40a Main Office Xavier Fisher MD I25.1 0 Athscl heart disease of [place] coronary artery w/o ang pctrs Z95.5 Presence of coronary angiopl asty implant and graft I35.2 Nonrheumatic aortic (valve) stenosis with insufficiency I50.32 Chronic diastolic (congestiv e) heart failure Office Visit 08/07/2019 9:30a Main Office Xavier Fisher MD I25.1 0 Athscl heart disease of [place] coronary artery w/o ang pctrs Z95.5 Presence of coronary angiopl asty implant and graft I35.2 Nonrheumatic aortic (valve) stenosis with insufficiency I50.32 Chronic diastolic (congestiv e) heart failure Office Visit 2019 10:45a Main Office Ainsley Chamorro PA-C I25.1 0 Athscl heart disease of [place] coronary artery w/o ang pctrs Z95.5 Presence [...] (pediatric) Z71.3 Dietary counseling and surve illance Assessments Date Code Description Provider 12/04/2019 I35.2 Nonrheumatic aortic (valve) sten osis [...] 10/13/2019 I25.10 Atherosclerotic hear t disease of [place] coronary artery without angina pectoris Xavier Fisher MD 10/13/2019 Z95.5 Presence of coronary angioplasty implant and graft Xavier Fisher MD 10/13/2019 I35.2 Nonrheumatic aortic (valve) sten osis with insufficiency Xavier Fisher MD 10/13/2019 I50.32 Chronic diastolic (congestive) h eart failure Xavier Fisher MD 09/08/2019 I25.10 Atherosclerotic hear t disease of [place] coronary artery without angina pectoris Xavier Fisher MD 09/08/2019 Z95.5 Presence of coronary angioplasty implant and graft Xavier Fisher MD 09/08/2019 I35.2 Nonrheumatic aortic (valve) sten osis with insufficiency Xavier Fisher MD 09/08/2019 I50.32 Chronic diastolic (congestive) h eart failure Xavier Fisher MD 08/07/2019 I25.10 Atherosclerotic hear t disease of [place] coronary artery without angina pectoris Xavier Fisher MD 08/07/2019 Z95.5 Presence of coronary angioplasty implant and graft Xavier Fisher MD 08/07/2019 I35.2 Nonrheumatic aortic (valve) sten osis with insufficiency Xavier Fisher MD 08/07/2019 I50.32 Chronic diastolic (congestive) h eart failure Xavier Fisher MD 2019 I25.10 Atherosclerotic hear t disease of [place] coronary artery without angina pectoris Ainsley Chamorro PA-C 2019 Z95.5 Presence of coronary angioplasty implant and graft Ainsley Chamorro PA-C 2019 I35.2 Nonrheumatic aortic (valve) sten osis with insufficiency HILARY FreemanC 2019 I50.32 Chronic diastolic (congestive) h eart failure Ainsley Chamorro PA-C 2019 R94.31 Abnormal electrocardiogram [ECG] [EKG] HILARY FreemanC 2019 I44.0 Atrioventricular block, first de gree HILARY FreemanC 2019 I45.19 Other right bundle-branch block Ainsley Chamorro PA-C 2019 E78.00 Pure hypercholesterolemia, unspe cified Ainsley Chamorro PA-C 2019 G47.33 Obstructive sleep apnea (adult) (pediatric) Ainsley Chamorro PA-C 2019 Z71.3 Dietary counseling and surveilla nce Ainsley Chamorro PA-C Plan of Treatment Future Appointment(s):* 01/09/2020 10:45 am - Ainsley Chamorro PA-C at Main Office 2019 - Ainsley Chamorro PA-C* I25.10 Atherosclerotic heart disease of [place] coronary artery without angina pectoris* New Medication:* Nitrostat 0.4 mg - 1 sl every 5min x3 as needed for chest pain * Z95.5 Presence of coronary angioplasty implant [...] a low fat/low cholesterol diet and do as much aerobic exercise as you can tolerate. * All * Follow up:* 6 month follow up. Functional Status Functional Condition Comment Date Status Independent with all ADL's Activ e Mental Status Description No Information Available Referrals Description No Information Available
--- OUTSIDE RECORDS SUMMARY | 2020-03-08 07:21 | CCD | Continuity of Care Document ---
Author Author Marcelo CARTER DPM Organization Unknown Address [address] [place] [address] [address] [place] [address] Phone [phone] Care Team Providers Care Special Delivery Mail Carrier Name Role Phone Patric Ford M.D.Tong [phone] Problems Description No Information Available Social History [...] kg/m2 Results Description No Information Available Procedures Description No Information Available Medical Devices Description No Information Available Encounters Description No Information Available Assessments Description No Information Available Plan of Treatment Future Appointment(s):* 03/09/2020 2:00 pm - Nathaniel Carter DPM at [facility] Functional Status Description No Information Available Mental Status Description No Information Available Referrals Description No Information Available
--- OUTSIDE RECORDS SUMMARY | 2020-03-08 07:21 | CCD ---
Author Author [facility] Organization [facility] [employer] Address Unknown Phone Unavailable Care Team Providers Care Welfare Manager Name Role Phone Patric Ford Unavailable PROBLEMS Type Condition ICD9-CM Code [id number] Code Onset Dates Condition S tatus SNOMED Code Notes Problem Gout M10.9 Active 80231579 Uric acid contr olled on medication (last uric acid level was 3.9 in May 2019). Takes Allopurinol. No flares on medication. Problem Chronic back pain M54.9 Active 292601450 He i s on Mobic. He stopped taking Relafen in early 2009. He has taken Vicodin in the past but apparently not recently. Problem Allergic rhinitis J30.9 Active 07616568 Problem Glaucoma H40.9 Active 55930874 He is no longe r on latanoprost eye drops, apparently stopped by his road marker after his cataract surgery. Problem Diverticulosis K57.90 Active 66387930 Discover ed on colonoscopy in past, and again 2009. He had surgical therapy in the past. He is using fiber supplementation. Problem Hypertension I10 Active 20275756 On lisinop ril HCTZ in the past, but since his right knee replacement in April 2015 he had lower blood pressures and is on spironolactone now apparently as of 11/2018; I cannot tell who started it. He has a chronic right bundle-branch block. Had an echocardiogram in 11/2018. Problem Osteoarthritis M19.90 Active 614217546 Diffuse osteoarthritis, on Mobic. In the past he took Vicodin rarely. He had a right knee replacement in 2015, is doing well, and expects that in the future his left knee will need to be replaced. He takes Tylenol arthritis as needed, also. Problem Other fdc (current) drug therapy Z79.899 A ctive 030536049 Problem Hypercholesterolemia E78.00 Active 52825209 Li pids were not as well controlled in October 2018 but he achieved primary prevention targets in September 2017, March 2018. He had a coronary stent placement in 11/2018 and he is now on rosuvastatin 10 mg daily with optimal lipids as of May 2019, only a mild triglyceride elevation in November 2019. Problem Esophageal dysphagia R13.10 Active 06525746 An EGD with dilation at the Z line was done in May 2017. He is still on omeprazole therapy. Dose increased due to some swallowing difficulties as of late 11/2018. Problem Localized edema R60.0 Active 088347833 He has a history of ankle edema without orthopnea and was normal jugular venous pressures. He is on spironolactone. He does not require Lasix therapy. Problem Aortic valve disease I35.9 Active 9914459 He had moderate aortic stenosis with mild aortic insufficiency by echocardiogram in November 2019. A one-year follow-up was recommended. Problem History of adenomatous polyp of colon Z86.010 [facility] [id number] Had a tubular adenoma in 2006 with a negative colonoscopy in 2009, adenomatous polyps in October 2014 and November 2017. Problem Onychomycosis B35.1 Active 296291795 Referred to hardboard grinder. Problem Nephrolithiasis N20.0 Active 33921036 He had a probable kidney stone, never confirmed, in December 2008. CT at that time was negative but he had classic symptoms. No stone was ever recovered. Last CT abdomen showed no significant abnormality in July 2009. He had a negative renal ultrasound in December 2018 to evaluate for the possibility of recurrent stones, which was negative. Problem Vitamin B12 deficiency E53.8 Active 096777182 In 2001 he had a vitamin B12 level of 30. He was started on supplementation. [facility] suggested that he stop that but that is actually contraindicated. He should continue vitamin B12 supplementation at 1000 mcg orally daily. His most recent vitamin B12 level was 1982 in March 2018, with a normal folic acid level. Problem Obstructive sleep apnea syndrome G47.33 Active 02758868 Diagnosed in early 2018 and CPAP +12 cm is prescribed. Problem Anxiety F41.9 Active 90188122 He has a histor y of significant anxiety and buspirone was started as of late 11/2018, with benefit. Problem Coronary artery disease invo lving habematolel coronary artery of habematolel heart without angina pectoris I25.10 Active [id number] 7 He had a drug-eluting stent placed to his first diagonal in 11/2018. He is on aspirin, Plavix and is now on statin therapy. Atorvastatin was not tolerated so he was started on rosuvastatin in late November 2018. ALLERGIES Allergen (clinical drug ingredient) Drug/Non Drug Allergy do cumented on EMR Reaction Allergy Type Onset Date Status sulfamethoxazole / trimethoprim Bactrim([facility] Code:[address]-16) Rash Drug Allergy Active cephalexin Keflex([facility] Code:[address]-85) Rash Drug Allergy Active ENCOUNTERS from 1945 to 2019-12-20 Encounter Location Date Provider Diagnosis [address] [address] 21 Nov, 2019 Frank Rhode Medicare annual wellness visit, subseque nt Z00.00 ; Hypertension I10 ; Hypercholesterolemia E78.00 ; Osteoarthritis M19.90 ; Chronic back pain M54.9 ; Gout M10.9 ; Obstructive sleep apnea syndrome G47.33 ; Coronary artery disease involving habematolel coronary artery of habemat[place]l heart without angina pectoris I25.10 ; Nephrolithiasis N20.0 ; Diverticulosis K57.90 ; Screening for prostate cancer Z12.5 ; Encounter for immunization Z23 ; History of adenomatous polyp of colon Z86.010 ; Anxiety F41.9 ; Allergic rhinitis J30.9 ; Esophageal dysphagia R13.10 ; Localized edema R60.0 ; Vitamin B12 deficiency E53.8 ; Glaucoma H40.9 ; Aortic valve disease I35.9 ; Onychomycosis B35.1 ; Other predatory animal exterminator (current) drug therapy Z79.899 and Encounter for HCV screening test for low risk patient Z11.59 IMMUNIZATIONS Vaccine Route Administration Date Status Zoster 50mcg/0.5mL (Shingrix) Unknown Oct 28, 2019 Ad ministered Influenza (High Dose 65 & up) IM Intramuscular Nov 30, 2016 A dministered Influenza (High Dose 65 & up) IM Intramuscular Nov 26, 2015 A dministered Zoster 0.65mL (Zostavax) Unknown Oct 08, 2010 Adminis tered Pneumococcal Adult 0.5mL (Pneumovax 23) Unknown July 05, 2009 Administered TDAP 0.5mL (Boostrix) Unknown Oct 04, 2015 Administer ed Influenza (18 yrs & older) Flublok IM Intramuscular Nov 23, 2017 Administered Pneumococcal 0.5mL (Prevnar 13) Unknown Oct 04, 2015 Administered Influenza (18 yrs & older) Flublok IM Intramuscular Nov 27, 2018 Administered TD Adult 0.5mL (Tetanus) Unknown April 20, 2003 Adminis tered Influenza (18 yrs & older) Flublok IM Intramuscular Dec 10, 2019 Administered Influenza (6mo & up) Fluzone Unknown Nov 11, 2013 Adm inistered SOCIAL HISTORY Sex Assigned At : Social History Observation Description Sex Assigned At Unknown Audit Question Answer Notes Total Score: 4 Interpretation: Alcohol Education Domestic Violence: Question Answer Notes Status: Sexual Hx: Question Answer Notes Had sex in the last 12 months (vaginal, oral, or anal)? No Have you ever had an STD? No Drug and Alcohol Question Answer Notes Total Score: 0 Interpretation: No problems reported Alcohol Screening: Question Answer Notes Did you have a drink containing alcohol in the past year? Ye s Points 4 Interpretation Positive How often did you have six or more drinks on one occas ion in the past year? Never (0 points) How many drinks did you have on a typica l day when you were drinking in the past year? 1 or 2 (0 points) How often did you have a drink containing alcohol in t he past year? Four or more times a week (4 points) BMI Care Goal Follow-Up Question Answer Notes Above Normal BMI Follow-Up Dietary management educatio n, guidance, and counseling REASON FOR REFERRAL No Information VITAL SIGNS Weight 267.4 lbs Nov, Height 69 in Nov, BMI 39.48 kg/m2 Nov, Heart Rate 104 /min Nov, Respiratory Rate 20 /min Nov, Temperature 98.5 degrees Fahrenheit Nov, Oximetry 96% Nov, Blood pressure systolic 132 mm Hg Nov, Blood pressure diastolic 84 mm Hg Nov, MEDICATIONS Medication SIG (Take, Route, Frequency, Duration) Start Date En d Date Status Mag64 535 (64 Mg) MG 1 tablet Orally Once a day Active Spironolactone 25 MG 1 tablet Orally for 30 day(s) Nov, Active Vitamin B12 1000 MCG 1 tablet Orally Once a day, 5000 Active Metamucil 58.6 % 1TBSP Orally Twice a day Active BusPIRone HCl 10 MG 1 tablet Orally Twice a day, for anxiety for 30 Active Aspir-81 81 MG 1 tablet Orally Once a day Active Mobic 15 MG 1 tablet Orally Once a day for 90 Active Vitamin D (Cholecalciferol) 1000 UNIT 1 capsule Orally Once a day Active Rosuvastatin Calcium 10 MG 1 tablet Orally Once a day for 30 Active Plavix 75 MG 1 tablet Orally Once a day for 30 day(s) Nov, Active Omeprazole 20 mg 1 capsule Orally Once a day for 90 Active Fluticasone Propionate 50 MCG/ACT 2 sprays in each nos tril Nasally once daily as needed Active Allopurinol 300 MG 1 tablet Orally Once a day for 90 Active PROCEDURES Procedure Date Ordered Result Body Site Immunization: Flublok Quadrivalent (18 years & older) 0.5mL IM (Influenza) 2019-12-10 N/A RESULTS No Results REASON FOR VISIT Annual wellness exam with labs to review MEDICAL (GENERAL) HISTORY Type Description Date Medical History Hypertension Medical History Hypercholesterolemia Medical History Osteoarthritis Medical History Chronic back pain Medical History Gout Medical History Nephrolithiasis Medical History Allergic rhinitis Medical History Diverticulosis Medical History History of adenomatous polyp of colon Medical History Glaucoma Medical History Esophageal dysphagia Medical History Vitamin B12 deficiency Surgical History Tonsillectomy age 20 Surgical History Maxillofacial surgery 1969 Surgical History Umbilical hernia repair 04/15/1984 Surgical History Lumbar laminectomy 04/15/1995 Surgical History Knee arthropscopy, right 04/15/2006 Surgical History Sigmoid colon resection 10/13/2001 Surgical History Colonoscopy with polyp resection 11/2009 Surgical History Right total knee replacement 05/13/2015 Surgical History Left eye cataract extraction 04/11/2016 Surgical History EGD with esophageal dilation at Z-line Surgical History Right eye cataract extraction 07/26/[address] [place] Cardiac Stent 12/12/18 Goals Section No Information Health Concerns No Information MEDICAL EQUIPMENT No Information MENTAL STATUS No Information FUNCTIONAL STATUS No Information ASSESSMENTS Encounter Date Diagnosis Notes Nov, Gout (ICD-10 - M10.9) Uric acid controll ed on medication (last uric acid level was 3.9 in May 2019). Takes Allopurinol. No flares on medication. Nov, Localized edema (ICD-10 - R60.0) He has a history of ankle edema without orthopnea and was normal jugular venous pressures. He is on spironolactone. He does not require Lasix therapy. Nov, Chronic back pain (ICD-10 - M54.9) He is on Mobic. He stopped taking Relafen in early 2009. He has taken Vicodin in the past but apparently not recently. Nov, Esophageal dysphagia (ICD-10 - R13.10) A n EGD with dilation at the Z line was done in May 2017. He is still on omeprazole therapy. Dose increased due to some swallowing difficulties as of late 11/2018. Nov, Coronary artery disease invo lving habematolel coronary artery of habematolel heart without angina pectoris (ICD-10 - I25.10) He had a drug-eluting stent placed to his first diagonal in 11/2018. He is on aspirin, Plavix and is now on statin therapy. Atorvastatin was not tolerated so he was started on rosuvastatin in late November 2018. Nov, Glaucoma (ICD-10 - H40.9) He is no longe r on latanoprost eye drops, apparently stopped by his road marker after his cataract surgery. Nov, Obstructive sleep apnea syndrome (ICD-10 - G47.33) Diagnosed in early 2018 and CPAP +12 cm is prescribed. Nov, Vitamin B12 deficiency (ICD-10 - E53.8) In 2001 he had a vitamin B12 level of 30. He was started on supplementation. [facility] suggested that he stop that but that is actually contraindicated. He should continue vitamin B12 supplementation at 1000 mcg orally daily. His most recent vitamin B12 level was 1982 in March 2018, with a normal folic acid level. Nov, Hypertension (ICD-10 - I10) On lisinopri l HCTZ in the past, but since his right knee replacement in April 2015 he had lower blood pressures and is on spironolactone now apparently as of 11/2018; I cannot tell who started it. He has a chronic right bundle-branch block. Had an echocardiogram in 11/2018. Nov, History of adenomatous polyp of colon (I CD-10 - Z86.010) Had a tubular adenoma in 2006 with a negative colonoscopy in 2009, adenomatous polyps in October 2014 and November 2017. Nov, Encounter for immunization (ICD-10 - Z23 ) Nov, Encounter for HCV screening test for low risk patient (ICD-10 - Z11.59) Nov, Osteoarthritis (ICD-10 - M19.90) Diffuse osteoarthritis, on Mobic. In the past he took Vicodin rarely. He had a right knee replacement in 2016, is doing well, and expects that in the future his left knee will need to be replaced. He takes Tylenol arthritis as needed, also. Nov, Allergic rhinitis (ICD-10 - J30.9) Nov, Hypercholesterolemia (ICD-10 - E78.00) L ipids were not as well controlled in October 2018 but he achieved primary prevention targets in September 2017, March 2018. He had a coronary stent placement in 11/2018 and he is now on rosuvastatin 10 mg daily with optimal lipids as of May 2019, only a mild triglyceride elevation in November 2019. Nov, Anxiety (ICD-10 - F41.9) He has a histor y of significant anxiety and buspirone was started as of late 11/2018, with benefit. Nov, Diverticulosis (ICD-10 - K57.90) Discove red on colonoscopy in past, and again 2009. He had surgical therapy in the past. He is using fiber supplementation. Nov, Onychomycosis (ICD-10 - B35.1) Referred to hardboard grinder. Nov, Nephrolithiasis (ICD-10 - N20.0) He had a probable kidney stone, never confirmed, in December 2008. CT at that time was negative but he had classic symptoms. No stone was ever recovered. Last CT abdomen showed no significant abnormality in July 2009. He had a negative renal ultrasound in December 2018 to evaluate for the possibility of recurrent stones, which was negative. Nov, Aortic valve disease (ICD-10 - I35.9) He had moderate aortic stenosis with mild aortic insufficiency by echocardiogram in November 2019. A one-year follow-up was recommended. Nov, Medicare annual wellness visit, subseque nt (ICD-10 - Z00.00) Nov, Screening for prostate cancer (ICD-10 - Z12.5) Nov, Other fdc (current) drug therapy ( ICD-10 - Z79.899) PLAN OF TREATMENT Future Test Test Name Order Date HEPATITIS C VIRUS AB SCRN MEDICARE [id number] Comprehensive Metabolic Profile (CMP) [id number] MAGNESIUM LEVEL [id number] LIPID PANEL (CARDIAC RISK) [id number] CBC with Differential [id number] TSH [id number] Next Appt Details 6 Months Reason: Provider Name:Patric Ford, 2020-06-09 09 :30:00 AM, [address] [place], [address], Insurance Providers Payer Name Payer Address Payer Phone Insured Name Patient Relati onship to Insured Coverage Start Date Coverage End Date [employer] [facility] CLAIM DIV [address] [facility] [id number] REGINO HUTCHINSON self MEDICARE Part A and B [address] [facility] [phone] [phone] REGINO HUTCHINSON self
--- OUTSIDE RECORDS SUMMARY | 2020-03-08 07:21 | CCD | Continuity of Care Document ---
Author Author Marcelo FISHER MD Organization Unknown Address [address] [place] [address], [facility] [place] [address] Phone [phone] Care Team Providers Care Dumper Mold Cleaner Name Role Phone Patric Ford MD AUTM [phone] Brisa Tan MD AUTM [phone] Problems Active Problems Provider Date Coronary arteriosclerosis Ainsley Busby PA-C Onset: 2019 Patient post percutaneous transluminal coronary angiop lasty Ainsley Busby PA-C Onset: 2019 Aortic valve stenosis with insufficiency HILARY Freeman Onset: 2019 Chronic diastolic heart failure Ainsley Busby PA-C Onset: 2019 Electrocardiogram abnormal Xavier Fisher MD Onset: 11/28 First degree atrioventricular block Xavier Fisher MD Ons et: 11/28/2018 Right bundle branch block Xavier Fisher MD Onset: 2018 Pure hypercholesterolemia Xavier Fisher MD Onset: 2018 Obstructive sleep apnea syndrome Ainsley Busby PA-C Onset: 2019 Social History Type Date [...] 25mg Tablets 1/2 by mouth every day 15tabs Xavier Fisher MD 11/06/2019 Nitrostat 0.4mg Tablets [...] Omron large adult c uff, [place] Results Description No Information Available Procedures Date Code Description Status 12/04/2019 29624 Echocardiogram 2-D Doppler Color Completed 2019 73247 ECG 12-Lead Completed Medical Devices Description No [...] MD I25.1 0 Athscl heart disease of [place] coronary artery w/o ang pctrs Z95.5 Presence of coronary angiopl asty implant and graft I35.2 Nonrheumatic aortic (valve) stenosis with insufficiency I50.32 Chronic diastolic (congestiv e) heart failure Office Visit 09/08/2019 11:40a Main Office Xavier Fisher MD I25.1 0 Athscl heart disease of [place] coronary artery w/o ang pctrs Z95.5 Presence of coronary angiopl asty implant and graft I35.2 Nonrheumatic aortic (valve) stenosis with insufficiency I50.32 Chronic diastolic (congestiv e) heart failure Office Visit 08/07/2019 9:30a Main Office Xavier Fisher MD I25.1 0 Athscl heart disease of [place] coronary artery w/o ang pctrs Z95.5 Presence of coronary angiopl asty implant and graft I35.2 Nonrheumatic aortic (valve) stenosis with insufficiency I50.32 Chronic diastolic (congestiv e) heart failure Office Visit 2019 10:45a Main Office Ainsley Busby PA-C I25.1 0 Athscl heart disease of [place] coronary artery w/o ang pctrs Z95.5 Presence [...] Dietary counseling and surve illance Office Visit 07/07/2019 8:47a Main Office Xavier Fisher MD G47.3 3 Obstructive sleep apnea (adult) (pediatric) E78.00 Pure hypercholesterolemia, u nspecified I35.2 Nonrheumatic aortic (valve) stenosis with insufficiency I25.10 Athscl heart disease of [place] coronary artery w/o ang pctrs Assessments Date Code Description Provider 12/04/2019 I35.2 [...] 10/13/2019 I25.10 Atherosclerotic hear t disease of [place] coronary artery without angina pectoris Xavier Fisher MD 10/13/2019 Z95.5 Presence of coronary angioplasty implant and graft Xavier Fisher MD 10/13/2019 I35.2 Nonrheumatic aortic (valve) sten osis with insufficiency Xavier Fisher MD 10/13/2019 I50.32 Chronic diastolic (congestive) h eart failure Xavier Fisher MD 09/08/2019 I25.10 Atherosclerotic hear t disease of [place] coronary artery without angina pectoris Xavier Fisher MD 09/08/2019 Z95.5 Presence of coronary angioplasty implant and graft Xavier Fisher MD 09/08/2019 I35.2 Nonrheumatic aortic (valve) sten osis with insufficiency Xavier Fisher MD 09/08/2019 I50.32 Chronic diastolic (congestive) h eart failure Xavier Fisher MD 08/07/2019 I25.10 Atherosclerotic hear t disease of [place] coronary artery without angina pectoris Xavier Fisher MD 08/07/2019 Z95.5 Presence of coronary angioplasty implant and graft Xavier Fisher MD 08/07/2019 I35.2 Nonrheumatic aortic (valve) sten osis with insufficiency Xavier Fisher MD 08/07/2019 I50.32 Chronic diastolic (congestive) h eart failure Xavier Fisher MD 2019 I25.10 Atherosclerotic hear t disease of [place] coronary artery without angina pectoris Ainsley Busby PA-C 2019 Z95.5 Presence of coronary angioplasty implant and graft Ainsley Busby PA-C 2019 I35.2 Nonrheumatic aortic (valve) sten osis with insufficiency Ainsley Busby PA-C 2019 I50.32 Chronic diastolic (congestive) h eart failure Ainsley Busby PA-C 2019 R94.31 Abnormal electrocardiogram [ECG] [EKG] Ainsley Busby PA-C 2019 I44.0 Atrioventricular block, first de gree Ainsley Busby PA-C 2019 I45.19 Other right bundle-branch block Ainsley Busby PA-C 2019 E78.00 Pure hypercholesterolemia, unspe cified Ainsley Busby PA-C 2019 G47.33 Obstructive sleep apnea (adult) (pediatric) Ainsley Busby PA-C 2019 Z71.3 Dietary counseling and surveilla nce Ainsley Busby PA-C 07/07/2019 G47.33 Obstructive sleep apnea (adult) (pediatric) Xavier Fisher MD 07/07/2019 E78.00 Pure hypercholesterolemia, unspe cified Xavier Fisher MD 07/07/2019 I35.2 Nonrheumatic aortic (valve) sten osis with insufficiency Xavier Fisher MD 07/07/2019 I25.10 Atherosclerotic hear t disease of [place] coronary artery without angina pectoris Xavier Fisher MD Plan of Treatment Future Appointment(s):* 01/09/2020 10:45 am - Ainsley Busby PA-C at Main Office 2019 - Ainsley Busby PA-C* I25.10 Atherosclerotic heart disease of [place] coronary artery without angina pectoris* New Medication:* [...]
--- OUTSIDE RECORDS SUMMARY | 2020-03-08 07:21 | CCD | Continuity of Care Document ---
Author Author Marcelo FISHER MD Organization Unknown Address [address] [place] [address], [facility] [place] [address] Phone [phone] Care Team Providers Care Pocket Grinder Operator Name Role Phone Patric Ford MD AUTM [phone] Brisa Tan MD AUTM [phone] Problems Active Problems Provider Date Coronary arteriosclerosis JACIEL Freeman-C Onset: 2019 Patient post percutaneous transluminal coronary [...] MD Onset: 2018 Obstructive sleep apnea syndrome JACIEL Freeman-C Onset: 2019 Dietary management surveillance JACIEL Freeman-C Onset: 01/09/2020 Social History Type Date Description [...] H/L Range Note Basic Metabolic Profile 01/06/2020 [facility] [phone] Glucose, Fasting 93 mg/dL Normal 70-100 Blood [...] mg/dL Normal 8.8-10.2 Laboratory test finding 01/06/2020 [facility] [phone] Magnesium Level 1.9 mg/dL Normal 1.8-2.4 1 Units are mL/min/1.73 m2 Chronic Kidney Disease Staging per NKF: Stage I & II GFR >=60 Normal to Mildly Decreased Stage III GFR 30-59 Moderately Decreased Stage IV GFR 15-29 Severely Decreased Stage V GFR <15 Very Little GFR Left ESRD GFR <15 on [employer] 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 Procedures Date Code Description Status 01/09/2020 10856 ECG 12-Lead Completed 12/04/2019 61177 Echocardiogram 2-D Doppler Color Completed Medical Devices Description No Information Available Encounters Type Date Location Provider Dx Diagnosis Office Visit 01/09/2020 10:45a Main Office Ainsley Busby PA-C I25.1 0 Athscl heart disease of [place] coronary artery w/o ang pctrs Z95.5 Presence [...] Dietary counseling and surve illance Office Visit 12/12/2019 11:35a Main Office Xavier Fisher MD I35.2 Nonrheumatic aortic (valve) stenosis with insufficiency I50.32 Chronic diastolic (congestiv e) heart failure E78.00 Pure hypercholesterolemia, u nspecified G47.33 Obstructive sleep apnea (dima lt) (pediatric) Office Visit 11/10/2019 11:25a Main Office Xavier Fisher MD I35.2 Nonrheumatic aortic (valve) stenosis with insufficiency I50.32 Chronic diastolic (congestiv e) heart failure E78.00 Pure hypercholesterolemia, u nspecified G47.33 Obstructive sleep apnea (dima lt) (pediatric) Office Visit 10/13/2019 3:20p Main Office Xavier Fisher MD I25.1 0 Athscl heart disease of [place] coronary artery w/o ang pctrs Z95.5 Presence of coronary angiopl asty implant and graft I35.2 Nonrheumatic aortic (valve) stenosis with insufficiency I50.32 Chronic diastolic (congestiv e) heart failure Office Visit 09/08/2019 11:40a Main Office Xavier Fisher MD I25.1 0 Athscl heart disease of [place] coronary artery w/o ang pctrs Z95.5 Presence of coronary angiopl asty implant and graft I35.2 Nonrheumatic aortic (valve) stenosis with insufficiency I50.32 Chronic diastolic (congestiv e) heart failure Office Visit 08/07/2019 9:30a Main Office Xavier Fisher MD I25.1 0 Athscl heart disease of [place] coronary artery w/o ang pctrs Z95.5 Presence of coronary angiopl asty implant and graft I35.2 Nonrheumatic aortic (valve) stenosis with insufficiency I50.32 Chronic diastolic (congestiv e) heart failure Assessments Date Code Description Provider 01/09/2020 I25.10 Atherosclerotic hear t disease of [place] coronary artery without angina pectoris Ainsley Busby PA-C 01/09/2020 Z95.5 Presence of coronary angioplasty implant and graft Ainsley Busby PA-C 01/09/2020 I35.2 Nonrheumatic aortic (valve) sten osis with insufficiency Ainsley Busby PA-C 01/09/2020 I50.32 Chronic diastolic (congestive) h eart failure Ainsley Busby, PA-C 01/09/2020 R94.31 Abnormal electrocardiogram [ECG] [EKG] Ainsley Busby, PA-C 01/09/2020 I44.0 Atrioventricular block, first de gree Ainsley Busby, PA-C 01/09/2020 I45.19 Other right bundle-branch block Ainsley Busby, PA-C 01/09/2020 E78.00 Pure hypercholesterolemia, unspe cified Ainsley Kowalskiw, PA-C 01/09/2020 G47.33 Obstructive sleep apnea (adult) (pediatric) Ainsley Busby, PA-C 01/09/2020 Z71.3 Dietary counseling and surveilla nce Ainsley Busby, PA-C 12/12/2019 I35.2 Nonrheumatic aortic (valve) sten [...] 10/13/2019 I25.10 Atherosclerotic hear t disease of [place] coronary artery without angina pectoris Xavier Fisher MD 10/13/2019 Z95.5 Presence of coronary angioplasty implant and graft Xavier Fisher MD 10/13/2019 I35.2 Nonrheumatic aortic (valve) sten osis with insufficiency Xavier Fisher MD 10/13/2019 I50.32 Chronic diastolic (congestive) h eart failure Xavier Fisher MD 09/08/2019 I25.10 Atherosclerotic hear t disease of [place] coronary artery without angina pectoris Xavier Fisher MD 09/08/2019 Z95.5 Presence of coronary angioplasty implant and graft Xavier Fisher MD 09/08/2019 I35.2 Nonrheumatic aortic (valve) sten osis with insufficiency Xavier Fisher MD 09/08/2019 I50.32 Chronic diastolic (congestive) h eart failure Xavier Fisher MD 08/07/2019 I25.10 Atherosclerotic hear t disease of [place] coronary artery without angina pectoris Xavier Fisher MD 08/07/2019 Z95.5 Presence of coronary angioplasty implant and graft Xavier Fisher MD 08/07/2019 I35.2 Nonrheumatic aortic (valve) sten osis with insufficiency Xavier Fisher MD 08/07/2019 I50.32 Chronic diastolic (congestive) h eart failure Xavier Fisher MD Plan of Treatment Future Appointment(s):* 07/08/2020 10:45 am - Ainsley Busby PA-C at Main Office 01/09/2020 - Ainsley Busby PA-C* I25.10 Atherosclerotic heart disease of [place] coronary artery without angina pectoris* Recommendations:* Discontinue [...]
--- OUTSIDE RECORDS SUMMARY | 2020-03-08 07:22 | CCD ---
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 Name Role Phone Jorge Burciaga MD Unavailable Unavailable Jorge Burciaga MD Unavailable Unavailable Jorge Burciaga MD Unavailable Unavailable Jorge Burciaga MD Unavailable Unavailable Jorge Burciaga MD Unavailable Unavailable Jorge Burciaga MD Unavailable Unavailable Jorge Burciaga MD Unavailable Unavailable Jorge Burciaga MD Unavailable Unavailable Jorge Burciaga MD Unavailable Unavailable Jorge Burciaga MD Unavailable Unavailable Jorge Burciaga MD Unavailable Unavailable Jorge Burciaga MD Unavailable Unavailable Jorge Burciaga MD Unavailable Unavailable Jorge Burciaga MD Unavailable Unavailable Jorge Burciaga MD Unavailable Unavailable Jorge Burciaga MD Unavailable Unavailable Jorge Burciaga MD Unavailable Unavailable Jorge Burciaga MD Unavailable Unavailable Jorge Burciaga MD Unavailable Unavailable Jorge Burciaga MD Unavailable Unavailable Jorge Burciaga MD Unavailable Unavailable Jorge Burciaga MD Unavailable Unavailable Jorge Burciaga MD Unavailable Unavailable Jorge Burciaga MD Unavailable Unavailable Jorge Burciaga MD Unavailable Unavailable Jorge Burciaga MD Unavailable Unavailable Jorge Burciaga MD Unavailable Unavailable Jorge Burciaga MD Unavailable Unavailable Jorge Burciaga MD Unavailable Unavailable Jorge Burciaga MD Unavailable Unavailable Jorge Burciaga MD Unavailable Unavailable Jorge Burciaga MD Unavailable Unavailable Jorge Burciaga MD Unavailable Unavailable Jorge Burciaga MD Unavailable Unavailable Jorge Burciaga MD Unavailable Unavailable Jorge Burciaga MD Unavailable Unavailable Jorge Burciaga MD Unavailable Unavailable Jorge Burciaga MD Unavailable Unavailable Jorge Burciaga MD Unavailable Unavailable Jorge Burciaga MD Unavailable Unavailable Jorge Burciaga MD Unavailable Unavailable Jorge Burciaga MD Unavailable Unavailable Jorge Burciaga MD Unavailable Unavailable Jorge Burciaga MD Unavailable Unavailable Jorge Burciaga MD Unavailable Unavailable Jorge Burciaga MD Unavailable Unavailable Jorge Burciaga MD Unavailable Unavailable ANTECOL, Bernadette LOMBARDI MD Unavailable Unavailable ANTECOL, Bernadette LOMBARDI MD Unavailable Unavailable ANTECOL, Bernadette LOMBARDI MD Unavailable Unavailable ANTECOL, Bernadette LOMBARDI MD Unavailable Unavailable ANTECOL, Bernadette LOMBARDI MD Unavailable Unavailable ANTECOL, Bernadette LOMBARDI MD Unavailable Unavailable ANTECOL, Bernadette LOMBARDI MD Unavailable Unavailable ANTECOL, Bernadette LOMBARDI MD Unavailable Unavailable ANTECOL, Bernadette LOMBARDI MD Unavailable Unavailable ANTECOL, Bernadette LOMBARDI MD Unavailable Unavailable ANTECOL, Bernadette LOMBARDI MD Unavailable Unavailable ANTECOL, Bernadette LOMBARDI MD Unavailable Unavailable ANTECOL, Berndaette LOMBARDI MD Unavailable Unavailable ANTECOL, Bernadette LOMBARDI MD Unavailable Unavailable ANTECOL, Bernadette LOMBARDI MD Unavailable Unavailable ANTECOL, Bernadette LOMBARDI MD Unavailable Unavailable ANTECOL, Bernadette LOMBARDI MD Unavailable Unavailable ANTECOL, Bernadette LOMBARDI MD Unavailable Unavailable ANTECOL, Bernadette LOMBARDI MD Unavailable Unavailable ANTECOL, Bernadette LOMBARID MD Unavailable Unavailable ANTECOL, Bernadette LOMBARDI MD Unavailable Unavailable ANTECOL, Bernadette LOMBARDI MD Unavailable Unavailable ANTECOL, Bernadette LOMBARDI MD Unavailable Unavailable ANTECOL, Bernadette LOMBARDI MD Unavailable Unavailable ANTECOL, Bernadette LOMBARDI MD Unavailable Unavailable ANTECOL, Bernadette LOMBARDI MD Unavailable Unavailable ANTECOL, Bernadette LOMBARDI MD Unavailable Unavailable ANTECOL, Bernadette LOMBARDI MD Unavailable Unavailable ANTECOL, Bernadette LOMBARDI MD Unavailable Unavailable ANTECOL, Bernadette LOMBARDI MD Unavailable Unavailable ANTECOL, Bernadette LOMBARDI MD Unavailable Unavailable ANTECOL, Bernadette LOMBARDI MD Unavailable Unavailable ANTECOL, Bernadette LOMBARDI MD Unavailable Unavailable ANTECOL, Bernadette LOMBARDI MD Unavailable Unavailable ANTECOL, Bernadette LOMBARDI MD Unavailable Unavailable ANTECOL, Bernadette LOMBARDI MD Unavailable Unavailable ANTECOL, Bernadette LOMBARDI MD Unavailable Unavailable ANTECOL, Bernadette LOMBARDI MD Unavailable Unavailable ANTECOL, Bernadette LOMBARDI MD Unavailable Unavailable ANTECOL, Bernadette LOMBARDI MD Unavailable Unavailable ANTECOL, Bernadette LOMBARDI MD Unavailable Unavailable ANTECOL, Bernadette LOMBARDI MD Unavailable Unavailable ANTECOL, Bernadette LOMBARDI MD Unavailable Unavailable ANTECOL, Bernadette LOMBARDI MD Unavailable Unavailable ANTECOL, Bernadette LOMBARDI MD Unavailable Unavailable ANTECOL, Bernadette LOMBARDI MD Unavailable Unavailable ANTECOL, Bernadette LOMBARDI MD Unavailable Unavailable ANTECOL, Bernadette LOMBARDI MD Unavailable Unavailable ANTECOL, Bernadette LOMBARDI MD Unavailable Unavailable ANTECOL, Bernadette LOMBARDI MD Unavailable Unavailable ANTECOL, Bernadette LOMBARDI MD Unavailable Unavailable ANTECOL, Bernadette LOMBARDI MD Unavailable Unavailable ANTECOL, Bernadette LOMBARDI MD Unavailable Unavailable ANTECOL, Bernadette LOMBARDI MD Unavailable Unavailable ANTECOL, Bernadette LOMBARDI MD Unavailable Unavailable Symenow, Cassie Ainsley PA Unavailable Unavailable Symenow, Cassie Ainsley PA Unavailable Unavailable Symenow, Cassie Ainsley PA Unavailable Unavailable Symenow, Cassie Ainsley PA Unavailable Unavailable Symenow, Cassie Ainsley PA Unavailable Unavailable Symenow, Cassie Ainsley PA Unavailable Unavailable Symenow, Cassie Ainsley PA Unavailable Unavailable Symenow, Cassie Ainsley PA Unavailable Unavailable Symenow, Cassie Ainsley PA Unavailable Unavailable Symenow, Cassie Ainsley PA Unavailable Unavailable Symenow, Cassie Ainsley PA Unavailable Unavailable Symenow, Cassie Ainsley PA Unavailable Unavailable Symenow, Cassie Ainsley PA Unavailable Unavailable Symenow, Cassie Ainsley PA Unavailable Unavailable Symenow, Cassie Ainsley PA Unavailable Unavailable Symenow, Cassie Ainsley PA Unavailable Unavailable Symenow, Cassie Ainsley PA Unavailable Unavailable Symenow, Cassie Ainsley PA Unavailable Unavailable Symenow, Cassie Ainsley PA Unavailable Unavailable Symenow, Cassie Ainsley PA Unavailable Unavailable Symenow, Cassie Ainsley PA Unavailable Unavailable Symenow, Cassie Ainsley PA Unavailable Unavailable Symenow, Cassie Ainsley PA Unavailable Unavailable Symenow, Cassie Ainsley PA Unavailable Unavailable Symenow, Cassie Ainsley PA Unavailable Unavailable Symenow, Cassie Ainsley PA Unavailable Unavailable Symenow, Cassie Ainsley PA Unavailable Unavailable Symenow, Cassie Ainsley PA Unavailable Unavailable Symenow, Cassie Ainsley PA Unavailable Unavailable Symenow, Cassie Ainsley PA Unavailable Unavailable Symenow, Cassie Ainsley PA Unavailable Unavailable Symenow, Cassie Regaladoe PA Unavailable Unavailable Symenow, Cassie Regaladoe PA Unavailable Unavailable Symenow, Cassie Regaladoe PA Unavailable Unavailable Symenow, Cassie Regaladoe PA Unavailable Unavailable Symenow, Cassie Regaladoe PA Unavailable Unavailable MAJAK, R SOILA DPM Unavailable Unavailable MAJAK, R SOILA DPM Unavailable Unavailable MAJAK, R SOILA DPM Unavailable Unavailable MAJAK, R SOILA DPM Unavailable Unavailable MAJAK, R SOILA DPM Unavailable Unavailable MAJAK, R SOILA DPM Unavailable Unavailable MAJAK, R SOILA DPM Unavailable Unavailable MAJAK, R SOILA DPM Unavailable Unavailable MAJAK, R SOILA DPM Unavailable Unavailable MAJAK, R SOILA DPM Unavailable Unavailable MAJAK, R SOILA DPM Unavailable Unavailable MAJAK, R SOILA DPM Unavailable Unavailable MAJAK, R SOILA DPM Unavailable Unavailable MAJAK, R SOILA DPM Unavailable Unavailable MAJAK, R SOILA DPM Unavailable Unavailable MAJAK, R SOILA DPM Unavailable Unavailable MAJAK, R SOILA DPM Unavailable Unavailable MAJAK, R SOILA DPM Unavailable Unavailable MAJAK, R SOILA DPM Unavailable Unavailable MAJAK, R SOILA DPM Unavailable Unavailable MAJAK, R SOILA DPM Unavailable Unavailable MAJAK, R SOILA DPM Unavailable Unavailable MAJAK, R SOILA DPM Unavailable Unavailable MAJAK, R SOILA DPM Unavailable Unavailable MAJAK, R SOILA DPM Unavailable Unavailable MAJAK, R SOILA DPM Unavailable Unavailable MAJAK, R SOILA DPM Unavailable Unavailable MAJAK, R SOILA DPM Unavailable Unavailable MAJAK, R SOILA DPM Unavailable Unavailable MAJAK, R SOILA DPM Unavailable Unavailable Re-disclosure Warning The records that you are about to access may contain information from federally-assisted alcohol or drug abuse programs. If such information is present, then the following federally mandated warning applies: This information has been disclosed to you from records protected by federal confidentiality rules (42 CFR part 2). The federal rules prohibit you from making any further disclosure of this information unless further disclosure is expressly permitted by the written consent of the person to whom it pertains or as otherwise permitted by 42 CFR part 2. A general authorization for the release of medical or other information is NOT sufficient for this purpose. The Federal rules restrict any use of the information to criminally investigate or prosecute any alcohol or drug abuse patient.The records that you are about to access may contain highly sensitive health information, the redisclosure of which is protected by Article 27-F of the [facility] Public Health law. If you continue you may have access to information: Regarding HIV / AIDS; Provided by facilities licensed or operated by the [facility] Office of Mental Health; or Provided by the [facility] Office for People With Developmental Disabilities. If such information is present, then the following [facility] mandated warning applies: This information has been disclosed to you from confidential records which are protected by state law. State law prohibits you from making any further disclosure of this information without the specific written consent of the person to whom it pertains, or as otherwise permitted by law. Any unauthorized further disclosure in violation of state law may result in a fine or fci sentence or both. A general authorization for the release of medical or other information is NOT sufficient authorization for further disc losure. Allergies and Adverse Reactions Type Description Substance Reaction Status Data Source(s ) Drug allergy Keflex Cephalexin Rash Active eCW1 ([facility]) Drug allergy Bactrim sulfamethoxazole / trimethoprim Rash Ac tive eCW1 ([facility]) Family History Family Member Name Family Member Gender Family Member Status Date o f Status Description Data Source(s) Unknown Male Problem MEDENT ([facility]) Unknown Male Problem MEDENT ([facility]) Unknown Female Problem MEDENT ([facility]) Encounters Encounter Providers Location Date Indications Data Source(s ) Outpatient Attender: Angel Burciaga MD Main Office 02/24/2020 09:15:00 AM EST MEDENT ([facility]) Outpatient Attender: Ainsley GRISSOM Main Office 01/09/2020 09:45:00 AM EST MEDENT ([facility]) Outpatient Attender: SOILA BURGESS [facility] Office 12/20 01:15:00 PM EST MEDENT ([facility] Office Visit Attender: MARIA C HEWITT MD Main Office 12/12/2019 11: 35:00 AM EDT MEDENT ([facility]) [place] [address] [address] 12/10/2019 12:00:00 AM EDT eCW1 ([facility]) Office Visit Attender: MARIA C HEWITT MD Main Office 11/10/2019 11: 25:00 AM EDT MEDENT ([facility]) Office Visit Attender: MARIA C HEWITT MD Main Office 10/13/2019 03: 20:00 PM EDT MEDENT ([facility]) Office Visit Attender: MARIA C HEWITT MD Main Office 09/08/2019 11: 40:00 AM EDT MEDENT ([facility]) [facility] [address] [address] 08/27/2019 12:00:00 AM EDT eCW1 ([facility]) Office Visit Attender: MARIA C HEWITT MD Main Office 08/07/2019 09: 30:00 AM EDT MEDENT ([facility]) Outpatient Attender: Ainsley GRISSOM Main Office 2019 10:45:00 AM EDT MEDENT ([facility]) Office Visit Attender: MARIA C HEWITT MD Main Office 07/07/2019 08: 47:00 AM EDT MEDENT ([facility]) [facility] [address] [address] 06/06/2019 12:00:00 AM EDT eCW1 ([facility]) [facility] [address] [facility] [place] [address] 06/02/2019 12:00:00 AM EDT eCW1 ([facility]) [facility] [address] [facility] [address] 02/28/2019 12:00:00 AM EST eCW1 ([facility]) [facility] [address] [address] 01/08/2019 12:00:00 AM EST eCW1 ([facility]) Immunizations Vaccine Date Status Description Data Source(s) influenza, recombinant, quadrIvalent,injectable, prese rvative free 12/10/2019 10:52:00 AM EDT completed eCW1 ([facility]) Zoster 50mcg/0.5mL (Shingrix) 10/28/2019 10:39:00 AM EDT completed eCW1 ([facility]) Medications Medication Brand Name Start Date Product Form Dose Route Admi nistrative Instructions Pharmacy Instructions Status Indications Reaction Description Data Source(s) Suprep Bowel Prep Kit Suprep Bowel Prep Kit 02/24/2020 12:00:00 AM EST active MEDENT ([facility]) Spironolactone 25 MG Oral Tablet Spironolactone 01/08/2020 12:00:00 A M EST ORAL active MEDENT ([facility] Fluticasone Propionate Fluticasone Propionate 01/08/2020 12:00:[address] active MEDENT ([facility]) Spironolactone 25 MG Oral Tablet Spironolactone 11/06/2019 12:00:00 A M EDT completed MEDENT ([facility]) Nitroglycerin 0.4 MG Sublingual Tablet [Nitrostat] Nitrostat 2019 12:00:00 AM EDT SUBLINGUAL active MEDEN T ([facility]) Rosuvastatin calcium 10 MG Oral Tablet Rosuvastatin Calcium 07/08/2019 12:00:00 AM EDT ORAL active MEDENT ([facility]) Insurance Providers Payer name Policy type / Coverage type Policy ID Covered alliance party ID Covered alliance party's relationship to castro Policy Castro Plan Information MEDICARE [id number] [facility] HEALTH CARE OPTIONS [id number] [facility] [id number] MEDICARE [id number] [facility] [id number] Nica [id number] MEDICARE [id number] [facility] [id number] ANSI-Medicare Part B [id number] ANSI-Commercial [id number] [facility] [id number] Self [id number] MEDICARE A [id number] Self [id number] A ANSI-Commercial [id number] ANSI-Medicare Part B [id number] [facility] HEALTH CARE OPTIONS [id number] SP [id number] MEDICARE [id number] SP [id number] R24 ANSI-Medicare Part B [id number] ANSI-Commercial [id number] ANSI-Medicare Part B [id number] ANSI-Commercial [id number] [facility] Health Care Options [facility] Part B [id number] Self [id number] [place] Primary [id number] Self [id number] ANSI-Commercial [id number] ANSI-Medicare Part B [id number] ANSI-Medicare Part B [id number] ANSI-Commercial [id number] ANSI-Commercial [id number] ANSI-Medicare Part B [id number] [employer] HE[employer] CARE OPTIONS [id number] SP [id number] MEDICARE [id number] SP [id number] A Medicare Part B [facility] Other 0 Se lf 0 MEDICARE [id number] SP [id number] A [facility] Options Medigap Part B [id number] Self [id number] Medicare Natl Gov't Servi Medicare Primary [id number] Self [id number] [facility] Options Medigap Part B [id number] Self [id number] Medicare Natl Gov't Servi Medicare Primary [id number] Self [id number] MEDICARE - [place] MCR [id number] S [id number] [employer] [facility] CARE OPTIONS [id number] SP [id number] [facility] Options Medigap Part B Self Medicare [place] Medicare Primary Self [facility] HE[facility] CARE O [id number] S [id number] MEDICARE PART A M [id number] S [id number] [facility] O [id number] S 0 [id number] MEDICARE M [id number] S [id number] A [facility] Options Medigap Part B Self Medicare [place] Primary Self AARP S [id number] S [id number] MEDICARE P [id number] S [id number] A [id number] A Problems, Conditions, and Diagnoses Code Display Name Description Problem Type Effective Dates Data Source(s) 621305270 Dietary management surveillance Dietary manageme nt surveillance Problem 01/09/2020 12:00:00 AM EST MEDENT ([facility]) B35.1 [id number] Onychomycosis Problem 12/10/2019 12:00:00 AM EDT eCW1 ([facility]) I35.9 [id number] Aortic valve disease Problem 12/10/2019 12:0 0:00 AM EDT eCW1 ([facility]) [id number] Obstructive sleep apnea syndrome Obstructive sle ep apnea syndrome Problem 2019 12:00:00 AM EDT MEDENT ([facility]) [id number] Chronic diastolic heart failure Chronic diastoli c heart failure Problem 2019 12:00:00 AM EDT MEDENT ([facility]) [id number] Aortic valve stenosis with insufficiency Aortic valve stenosis with insufficiency Problem 2019 12:00:00 AM EDT MEDENT ([facility]) [id number] Patient post percutaneous transluminal c oronary angioplasty Patient post percutaneous transluminal coronary angioplasty Problem 12:00:00 AM EDT MEDENT ([facility]) [id number] Coronary arteriosclerosis Coronary arteriosclerosis Pr oblem 2019 12:00:00 AM EDT MEDENT ([facility]) Surgeries/Procedures Procedure Description Date Indications Data Source(s) ECG ROUTINE ECG W/LEAST 12 LDS W/I&R 01/09/2020 12:00: 00 AM EST MEDENT ([facility]) DEBRIDEMENT NAIL ANY METHOD 6/> 12/30/2019 12:00:00 AM EST MEDENT ([facility] Immunization: Flublok Quadrivalent (18 years & older) 0.5mL IM (Influenza) 12/10/2019 12:00:00 AM EDT eCW1 ([facility]) ECHO TTHRC R-T 2D W/WOM-MODE COMPL SPEC&COLR DOP 12/03 12:00:00 AM EDT MEDENT ([facility]) ECG ROUTINE ECG W/LEAST 12 LDS W/I&R 2019 12:00: 00 AM EDT MEDENT ([facility]) Office Visit, Est Pt., Level 2 FC 06/06/2019 12:00:00 AM EDT eCW1 ([facility]) Office Visit, Est Pt., Level 4 PC 06/06/2019 12:00:00 AM EDT eCW1 ([facility]) RADEX ANKLE COMPLETE MINIMUM 3 VIEWS 04/21/2019 12:00: 00 AM EST MEDENT ([facility]) RADEX FOOT COMPLETE MINIMUM 3 VIEWS 04/21/2019 12:00:0 0 AM EST MEDENT ([facility]) Office Visit, Est Pt., Level 3 PC 01/08/2019 12:00:00 AM EST eCW1 ([facility]) Results ID Date Data Source [id number] 03/03/2020 10:00:00 AM EST [facility] Name Value Range Interpretation Code Description Data Gracie rce(s) Supporting Document(s) SARS coronavirus 2 RNA Not Detected [facility] [place] This lab was ordered by [facility] and reported by [facility]. ID Date Data Source [id number] 01/06/2020 09:22:00 AM EST MEDENT ([facility]) Name Value Range Interpretation Code Description Data Gracie rce(s) Supporting Document(s) Magnesium [Mass/volume] in Serum or Plasma 1.9 mg/dL 1.8-2.4 MEDENT ([facility]) ID Date Data Source [id number] 01/06/2020 09:22:00 AM EST MEDENT ([facility]) Name Value Range Interpretation Code Description Data Gracie rce(s) Supporting Document(s) Glucose, Fasting 93 mg/dL 70-100 MEDENT ([facility]) Creatinine For GFR 0.94 mg/dL 0.70-1.30 MEDENT ([facility]) Glomerular Filtration Rate Laboratory test result [facility] ([facility]) <content>Units are mL/min/1.73 m2</content>
<content></content>
<content>Chronic Kidney Disease Staging per NKF:</content>
<content></content>
<content>Stage I & II GFR >=60 Normal to Mildly Decreased</content>
<content>Stage III GFR 30- 59 Moderately Decreased</content>
<content>Stage IV GFR 15-29 Severely Decreased</content>
<content>Stage V GFR <15 Very Little GFR Left</content>
<content>ESRD GFR <15 on SENIOR TRAINER</content>
<content></content> Blood Urea Nitrogen 20 mg/dL 7-18 MEDENT ([facility]) Sodium Level 140 meq/L 136-145 MEDENT ([facility]) Potassium Serum 4.6 meq/L 3.5-5.1 MEDENT ([facility]) Carbon Dioxide Level 29 meq/L 21-32 MEDENT ([facility]) Chloride Level 106 meq/L 98-107 MEDENT ([facility]) Anion Gap 5 meq/L 8-16 [facility] Calcium Level 9.5 mg/dL 8.8-10.2 MEDENT ([facility]) ID Date Data Source [id number] 06/06/2019 03:35:00 PM EDT MEDENT ([facility]) Name Value Range Interpretation Code Description Data Gracie rce(s) Supporting Document(s) Magnesium Level 1.9 1.8-2.4 MEDENT ([facility]) ID Date Data Source [id number] 06/06/2019 03:35:00 PM EDT MEDENT ([facility]) Name Value Range Interpretation Code Description Data Gracie rce(s) Supporting Document(s) Triglycerides 139 MEDENT ([facility]) Cholesterol 134 MEDENT ([facility]) HDL 49 MEDENT ([facility] Cholesterol in LDL [Mass/volume] in Serum or Plasma by calculation 57 MEDENT ([facility]) Chol/HDL Ratio 2.734 MEDENT ([facility]) ID Date Data Source [id number] 06/06/2019 03:35:00 PM EDT MEDENT ([facility] Name Value Range Interpretation Code Description Data Gracie rce(s) Supporting Document(s) Albumin [Mass/volume] in Serum or Plasma 1.15 MEDENT ([facility]) Calcium [Mass/volume] in Serum or Plasma 9.2 MEDENT ([facility]) Alanine aminotransferase [Enzymatic activity/volume] in Serum or Pl asma 21 MEDENT ([facility]) Carbon dioxide, total [Moles/volume] in Serum or Plasma 28 MEDENT ([facility]) Chloride [Moles/volume] in Serum or Plasma 109 MEDENT ([facility]) Alkaline phosphatase [Enzymatic activity/volume] in Serum or Plasma 9 2 MEDENT ([facility]) Potassium [Moles/volume] in Serum or Plasma 4.4 MEDENT ([facility]) Protein [Mass/volume] in Serum or Plasma 7.1 MEDENT ([facility]) Sodium 142 MEDENT ([facility]) Aspartate aminotransferase [Enzymatic activity/volume] in Serum or Plasma 19 MEDENT ([facility]) Urea nitrogen [Mass/volume] in Serum or Plasma 17 MEDENT ([facility]) Creatinine For GFR 0.90 MED[facility] ([facility]) Glucose 93 83-110 MED[facility] ([facility]) ID Date Data Source Comprehensive Metabolic Profile (CMP) 01/08/2019 12:00:00 AM EST eCW1 (Formerly [facility]) Name Value Range Interpretation Code Description Data Gracie rce(s) Supporting Document(s) 91 70-100 GLUCOSE, FASTING eCW1 ([facility]) 13 7-18 BLOOD UREA NITROGEN eCW1 ([facility]) 4.7 3.5-5.1 POTASSIUM SERUM eCW1 ([facility]) 142 136-145 SODIUM LEVEL eCW1 ([facility]) > 60.0 >42 GLOMERULAR FILTRATION RATE eCW 1 ([facility]) 0.87 0.70-1.30 CREATININE FOR GFR eCW1 ([facility]) 9.4 8.8-10.2 CALCIUM LEVEL eCW1 ([facility]) 32 21-32 CARBON DIOXIDE LEVEL eCW1 ([facility]) 105 98-107 CHLORIDE LEVEL eCW1 ([facility]) 23 7-37 AST/SGOT eCW1 ([facility]) 6.9 6.4-8.2 TOTAL PROTEIN eCW1 ([facility]) 85 45-117 ALKALINE PHOSPHATASE eCW1 ([facility]) 30 12-78 ALT/SGPT eCW1 ([facility]) 0.5 0.2-1.0 BILIRUBIN,TOTAL eCW1 ([facility]) 3.5 3.2-5.2 ALBUMIN eCW1 ([facility]) 1.03 1.00-1.93 ALBUMIN/GLOBULIN RATIO eCW1 ([facility]) ID Date Data Source CPK CREATINE PHOSPHOKINASE 01/08/2019 12:00:00 AM EST eCW1 ( [facility]) Name Value Range Interpretation Code Description Data Gracie rce(s) Supporting Document(s) 80 84-308 CPK CREATINE PHOSPHOKINASE eCW 1 ([facility]) Procedure Social History Code Duration Value Status Description Data Source(s ) Smoking 01/09/2020 12:00:00 AM EST Patient is a former smoker completed Patient is a former smoker MEDENT ([facility]) Vital Signs ID Date Data Source UNK Name Value Range Interpretation Code Description Data Source(s) Body temperature 97.2 [degF] 97.2 [degF] MED[facility] ([facility]) Body weight 120.658 kg 120.658 kg [facility] ([facility]) Body mass index (BMI) [Ratio] 38.2 kg/m2 38.2 k g/m2 MEDENT ([facility]) Heart rate 84 /min 84 /min [facility] ([facility]) Diastolic blood pressure 80 mm[Hg] 80 mm[Hg] MEDENT ([facility]) Systolic blood pressure 109 mm[Hg] 109 mm[Hg] M EDENT ([facility]) Body weight 266.00 [lb_av] 266.00 [lb_av] MEDEN T ([facility]) Body height 70 [in_i] 70 [in_i] [facility] ([facility]) 5'10" Respiratory rate 16 /min 16 /min MEDENT ( [facility]) Heart rate 76 /min 76 /min MED[facility] ([facility]) Regular Body mass index (BMI) [Ratio] 38.8 kg/m2 38.8 k g/m2 MEDENT ([facility]) Body height 69 [in_i] 69 [in_i] MED[facility] ([facility]) 5'9" Body weight 263.00 [lb_av] 263.00 [lb_av] MEDEN T ([facility]) Diastolic blood pressure 64 mm[Hg] 64 mm[Hg] MEDENT ([facility]) sitting Systolic blood pressure 112 mm[Hg] 112 mm[Hg] M EDENT ([facility]) sitting Diastolic blood pressure 64 mm[Hg] 64 mm[Hg] MEDENT ([facility]) sitting, large cuff Systolic blood pressure 116 mm[Hg] 116 mm[Hg] M EDENT ([facility]) sitting, large cuff Body mass index (BMI) [Ratio] 37.7 kg/m2 37.7 k g/m2 MEDENT ([facility] Heart rate 75 /min 75 /min MEDENT ([facility] Diastolic blood pressure 62 mm[Hg] 62 mm[Hg] MEDENT ([facility] Systolic blood pressure 138 mm[Hg] 138 mm[Hg] M EDENT ([facility] Body weight 255.00 [lb_av] 255.00 [lb_av] MEDEN T ([facility] Body height 69 [in_i] 69 [in_i] MEDENT ([facility] 5'9" Diastolic blood pressure 84 mm[Hg] 84 mm[Hg] eCW1 ([facility]) Systolic blood pressure 132 mm[Hg] 132 mm[Hg] e CW1 ([facility]) Body temperature 98.5 [degF] 98.5 [degF] eCW1 ( [facility]) Respiratory rate 20 /min 20 /min eCW1 ([facility]) Heart rate 104 /min 104 /min eCW1 ([facility]) Body mass index (BMI) [Ratio] 39.48 kg/m2 39.48 kg/m2 eCW1 ([facility]) Body height 69 [in_i] 69 [in_i] eCW1 ([facility]) Body weight 267.4 [lb_av] 267.4 [lb_av] eCW1 ([facility]) Diastolic blood pressure 66 mm[Hg] 66 mm[Hg] MEDENT ([facility]) sitting Systolic blood pressure 112 mm[Hg] 112 mm[Hg] M EDENT ([facility]) sitting Diastolic blood pressure 66 mm[Hg] 66 mm[Hg] MEDENT ([facility]) sitting, large cuff Systolic blood pressure 116 mm[Hg] 116 mm[Hg] M EDENT ([facility]) sitting, large cuff Respiratory rate 16 /min 16 /min MEDENT ( [facility]) Heart rate 64 /min 64 /min [facility] ([facility]) Regular Body mass index (BMI) [Ratio] 38.8 kg/m2 38.8 k g/m2 MED[facility] ([facility]) Body height 69 [in_i] 69 [in_i] [facility] ([facility]) 5'9" Body weight 263.00 [lb_av] 263.00 [lb_av] MEDEN T ([facility]) Diastolic blood pressure 68 mm[Hg] 68 mm[Hg] eCW1 ([facility]) Systolic blood pressure 144 mm[Hg] 144 mm[Hg] e CW1 ([facility]) Body temperature 99.3 [degF] 99.3 [degF] eCW1 ( [facility]) Respiratory rate 20 /min 20 /min eCW1 ([facility]) Heart rate 118 /min 118 /min eCW1 ([facility]) Body mass index (BMI) [Ratio] 38.30 kg/m2 38.30 kg/m2 eCW1 ([facility]) Body height 69 [in_us] 69 [in_us] eCW1 ([facility]) Body weight Measured 259.4 [lb_av] 259.4 [lb_av ] eCW1 ([facility]) Diastolic blood pressure 82 mm[Hg] 82 mm[Hg] eCW1 ([facility]) Systolic blood pressure 138 mm[Hg] 138 mm[Hg] e CW1 ([facility]) Body temperature 98.1 [degF] 98.1 [degF] eCW1 ( [facility]) Respiratory rate 20 /min 20 /min eCW1 ([facility]) Heart rate 104 /min 104 /min eCW1 ([facility]) Body mass index (BMI) [Ratio] 37.71 kg/m2 37.71 kg/m2 eCW1 ([facility]) Body height 69 [in_us] 69 [in_us] eCW1 ([facility]) Body weight Measured 255.4 [lb_av] 255.4 [lb_av ] eCW1 ([facility]) Diastolic blood pressure 76 mm[Hg] 76 mm[Hg] eCW1 ([facility]) Systolic blood pressure 130 mm[Hg] 130 mm[Hg] e CW1 ([facility]) Body temperature 97.8 [degF] 97.8 [degF] eCW1 ( [facility]) Respiratory rate 18 /min 18 /min eCW1 ([facility]) Heart rate 93 /min 93 /min eCW1 ([facility]) Body mass index (BMI) [Ratio] 37.92 kg/m2 37.92 kg/m2 W1 ([facility]) Body height 69 [in_us] 69 [in_us] eCW1 ([facility]) Body weight Measured 256.8 [lb_av] 256.8 [lb_av ] eCW1 ([facility])
--- NOTE | 2020-03-08 08:03 | ROOR ---
Patient Name: Marcelo Hickman Procedure Date: 03/08/2020 7:42 AM Date of : 1945 Age: 74 Room: [facility] Gender: Male Note Status: Finalized Procedure: Total Colonoscopy to Cecum Indications: High risk colon cancer surveillance: Personal history of colonic polyps, Last colonoscopy: 2017 Providers: Angel Burciaga MD Referring MD: Patric Ford MD Requesting Provider: Medicines: Monitored Anesthesia Care Complications: No immediate complications. Procedure: Pre-Anesthesia Assessment: - The heart rate, respiratory rate, oxygen saturations, blood pressure, adequacy of pulmonary ventilation, and response to care were monitored throughout the procedure. The Colonoscope was introduced through the anus and advanced to the cecum, identified by appendiceal orifice and ileocecal valve. The colonoscopy was performed without difficulty. The patient tolerated the procedure well. The quality of the bowel preparation was excellent. Findings: The perianal and digital rectal examinations were normal. Non-bleeding internal hemorrhoids were found during retroflexion. The hemorrhoids were small and Grade I (internal hemorrhoids that do not prolapse). Multiple small and large-mouthed diverticula were found in the recto-sigmoid colon, sigmoid colon and descending colon. There was evidence of a prior end-to-side colo-colonic anastomosis at 30 cm proximal to the anus. This was patent and was characterized by healthy appearing mucosa. The anastomosis was traversed. The exam was otherwise without abnormality on direct and retroflexion views. Impression: - Non-bleeding internal hemorrhoids. - Diverticulosis in the recto-sigmoid colon, in the sigmoid colon and in the descending colon. - Patent end-to-side colo-colonic anastomosis, characterized by healthy appearing mucosa. - The examination was otherwise normal on direct and retroflexion views. - No specimens collected. - The exam was otherwise normal to the cecum. Recommendation: - Patient has a contact number available for emergencies. The signs and symptoms of potential delayed complications were discussed with the patient. Return to normal activities tomorrow. Written discharge instructions were provided to the patient. - High fiber diet. - Discharge patient to home. - Continue present medications. - Repeat colonoscopy is not recommended due to current age (66 years or older) for surveillance. - Return to referring physician. - The findings and recommendations were discussed with the patient. Procedure Code(s): --- Professional --- 23719, Colonoscopy, flexible; diagnostic, including collection of specimen(s) by brushing or washing, when performed (separate procedure) Diagnosis Code(s): --- Professional --- Z86.010, Personal history of colonic polyps K64.0, First degree hemorrhoids Z98.0, Intestinal bypass and anastomosis status K57.30, Diverticulosis of large intestine without perforation or abscess without bleeding CPT copyright 2019 [employer]. All rights reserved. The codes documented in this report are preliminary and upon guest service representative review may be revised to meet current compliance requirements. Angel Burciaga MD Angel Burciaga MD 03/08/2020 8:02:39 AM Electronically signed by Angel Burciaga MD Number of Addenda: 0 Note Initiated On: 03/08/2020 7:42 AM Estimated Blood Loss: Estimated blood loss: none.
== END 2020-03-08 08:56 | disposition home or self-care (01) ==
LOC: M OPP 07:15
PROVIDERS: ATTEND Internal Medicine Gastroenterology
DX: Z12.11 Encounter for screening for malignant neoplasm of colon (principal); Z86.010 Personal history of colon polyps; K64.0 First degree hemorrhoids; Z98.0 Intestinal bypass and anastomosis status; K57.30 Diverticulosis of large intestine without perforation or abscess without bleeding

== ENCOUNTER → 2020-06-07 | Outpatient (REF) | payer MEDICARE ==
[~2020-06-07] MED LIST changes: -NS 1,000 ML IV ONE
[2020-06-07 11:04] LABS: BASO # 0.1 10^3/uL (0.0-0.2); EOS # 0.3 10^3/uL (0.0-0.5); EOS % 4.5 % (0.0-3.0); HEMATOCRIT 41.2 % (42.0-52.0); HEMOGLOBIN 13.1 g/dl (13.5-17.5); LYMPH # 1.2 10^3/uL (1.5-5.0); LYMPH % 16.1 % (24.0-44.0); MEAN CORPUSCULAR HEMOGLOBIN 32.8 pg (27.0-33.0); MEAN CORPUSCULAR HGB CONC 31.8 g/dl (32.0-36.5); MONO # 0.8 10^3/uL (0.0-0.8); MONO % 10.8 % (2.0-8.0); NEUTROPHILS # 4.8 10^3/uL (1.5-8.5); NEUTROPHILS % 67.2 % (36.0-66.0); PLATELET COUNT, AUTOMATED 219 10^3/uL (150-450); WHITE BLOOD COUNT 7.2 10^3/uL (4.0-10.0)
[2020-06-07 11:18] LABS: ALT/SGPT 19 U/L (12-78); BLOOD UREA NITROGEN 17 MG/DL (7-18); CALCIUM LEVEL 9.5 MG/DL (8.8-10.2); CARBON DIOXIDE LEVEL 31 MEQ/L (21-32); CHLORIDE LEVEL 107 MEQ/L (98-107); CREATININE FOR GFR 0.84 MG/DL (0.70-1.30); GLOMERULAR FILTRATION RATE > 60.0 (>42); GLUCOSE, FASTING 110 MG/DL (70-100); POTASSIUM SERUM 4.8 MEQ/L (3.5-5.1); SODIUM LEVEL 142 MEQ/L (136-145)
[2020-06-07 11:19] LABS: ALBUMIN 3.5 GM/DL (3.2-5.2); BILIRUBIN,TOTAL 0.6 MG/DL (0.2-1.0); CHOLESTEROL LEVEL 119 MG/DL (<200); CHOLESTEROL RISK RATIO 2.163 (<5); HDL CHOLESTEROL 55 MG/DL (>40); LDL CHOLESTEROL 50 MG/DL (<100); NON-HDL-C 64 MG/DL; THYROID STIMULATING HORMONE 0.981 uIU/ML (0.358-3.740); TOTAL PROTEIN 6.6 GM/DL (6.4-8.2); TRIGLYCERIDES LEVEL 68 MG/DL (<150)
== END ==
LOC: M PLALAB 08:28
PROVIDERS: ATTEND Internal Medicine
DX: G47.33 Obstructive sleep apnea (adult) (pediatric) (principal); I10 Essential (primary) hypertension; E78.00 Pure hypercholesterolemia, unspecified; Z11.59 Encounter for screening for other viral diseases
CPT/HCPCS: 36415; 80053; 80061; 83735; 84443; 85025; G0472

== ENCOUNTER → 2020-11-29 | Outpatient (CLI) | payer MEDICARE ==
[2020-11-29 11:49] LABS: BASO # 0.1 10^3/uL (0.0-0.2); EOS # 0.5 10^3/uL (0.0-0.5); EOS % 5.2 % (0.0-3.0); HEMATOCRIT 42.1 % (42.0-52.0); HEMOGLOBIN 13.7 g/dl (13.5-17.5); LYMPH # 0.9 10^3/uL (1.5-5.0); LYMPH % 10.5 % (24.0-44.0); MEAN CORPUSCULAR HGB CONC 32.5 g/dl (32.0-36.5); MEAN CORPUSCULAR VOLUME 101.4 fl (80.0-96.0); MONO # 1.1 10^3/uL (0.0-0.8); MONO % 12.1 % (2.0-8.0); NEUTROPHILS # 6.2 10^3/uL (1.5-8.5); NEUTROPHILS % 70.6 % (36.0-66.0); PLATELET COUNT, AUTOMATED 198 10^3/uL (150-450); RED BLOOD COUNT 4.15 10^6/uL (4.30-6.10); WHITE BLOOD COUNT 8.8 10^3/uL (4.0-10.0)
[2020-11-29 12:16] LABS: ALBUMIN 3.4 GM/DL (3.2-5.2); ALT/SGPT 21 U/L (12-78); BILIRUBIN,TOTAL 0.6 MG/DL (0.2-1.0); BLOOD UREA NITROGEN 19 MG/DL (7-18); CALCIUM LEVEL 9.2 MG/DL (8.8-10.2); CARBON DIOXIDE LEVEL 28 MEQ/L (21-32); CHLORIDE LEVEL 108 MEQ/L (98-107); CREATININE FOR GFR 0.95 MG/DL (0.70-1.30); GLOMERULAR FILTRATION RATE > 60.0 (>42); GLUCOSE, FASTING 101 MG/DL (70-100); POTASSIUM SERUM 4.4 MEQ/L (3.5-5.1); SODIUM LEVEL 139 MEQ/L (136-145); TOTAL PROTEIN 6.9 GM/DL (6.4-8.2); URIC ACID 3.7 MG/DL (3.5-7.2)
== END ==
LOC: M PLALAB 08:39
PROVIDERS: ATTEND Internal Medicine
DX: I10 Essential (primary) hypertension (principal); G47.33 Obstructive sleep apnea (adult) (pediatric)

== ENCOUNTER → 2021-01-26 | Outpatient (CLI) | payer MEDICARE ==
[2021-01-26 17:27] LABS: BLOOD UREA NITROGEN 17 MG/DL (7-18); CALCIUM LEVEL 9.2 MG/DL (8.8-10.2); CARBON DIOXIDE LEVEL 30 MEQ/L (21-32); CHLORIDE LEVEL 107 MEQ/L (98-107); CREATININE FOR GFR 1.18 MG/DL (0.70-1.30); GLOMERULAR FILTRATION RATE > 60.0 (>42); GLUCOSE, FASTING 100 MG/DL (70-100); POTASSIUM SERUM 4.4 MEQ/L (3.5-5.1); SODIUM LEVEL 141 MEQ/L (136-145)
== END ==
LOC: M PLALAB 14:53
PROVIDERS: ATTEND Physician Assistant
DX: I25.10 Atherosclerotic heart disease of native coronary artery without angina pectoris (principal)

== ENCOUNTER → 2021-06-07 | Outpatient (CLI) | payer MEDICARE ==
[2021-06-07 11:13] LABS: ALBUMIN 2.9 GM/DL (3.2-5.2); ALT/SGPT 19 U/L (12-78); BILIRUBIN,TOTAL 0.8 MG/DL (0.2-1.0); BLOOD UREA NITROGEN 12 MG/DL (7-18); CALCIUM LEVEL 8.9 MG/DL (8.8-10.2); CARBON DIOXIDE LEVEL 26 MEQ/L (21-32); CHLORIDE LEVEL 107 MEQ/L (98-107); CHOLESTEROL LEVEL 82 MG/DL (<200); CHOLESTEROL RISK RATIO 2.411 (<5); CREATININE FOR GFR 0.82 MG/DL (0.70-1.30); GLOMERULAR FILTRATION RATE > 60.0 (>42); GLUCOSE, FASTING 94 MG/DL (70-100); HDL CHOLESTEROL 34 MG/DL (>40); LDL CHOLESTEROL 33 MG/DL (<100); MAGNESIUM LEVEL 1.4 MG/DL (1.8-2.4); NON-HDL-C 48 MG/DL; POTASSIUM SERUM 3.8 MEQ/L (3.5-5.1); SODIUM LEVEL 141 MEQ/L (136-145); TOTAL PROTEIN 6.3 GM/DL (6.4-8.2); TRIGLYCERIDES LEVEL 74 MG/DL (<150)
== END ==
LOC: M PLALAB 08:38
PROVIDERS: ATTEND Internal Medicine
DX: I10 Essential (primary) hypertension (principal); E78.00 Pure hypercholesterolemia, unspecified; Z12.5 Encounter for screening for malignant neoplasm of prostate
CPT/HCPCS: 36415; 80053; 80061; 83735; G0103

== ENCOUNTER → 2021-07-11 | Outpatient (CLI) | payer MEDICARE ==
[2021-07-11 15:43] LABS: HEMATOCRIT 40.3 % (42.0-52.0); HEMOGLOBIN 12.9 g/dl (13.5-17.5); MEAN CORPUSCULAR HEMOGLOBIN 31.8 pg (27.0-33.0); MEAN CORPUSCULAR VOLUME 99.3 fl (80.0-96.0); PLATELET COUNT, AUTOMATED 218 10^3/uL (150-450); RED BLOOD COUNT 4.06 10^6/uL (4.30-6.10); WHITE BLOOD COUNT 10.5 10^3/uL (4.0-10.0)
[2021-07-11 16:07] LABS: BLOOD UREA NITROGEN 17 MG/DL (7-18); CALCIUM LEVEL 9.6 MG/DL (8.8-10.2); CARBON DIOXIDE LEVEL 26 MEQ/L (21-32); CHLORIDE LEVEL 107 MEQ/L (98-107); CREATININE FOR GFR 0.94 MG/DL (0.70-1.30); GLOMERULAR FILTRATION RATE > 60.0 (>42); GLUCOSE, FASTING 102 MG/DL (70-100); NT-PRO BNP 1063 PG/ML (<450); POTASSIUM SERUM 4.7 MEQ/L (3.5-5.1); SODIUM LEVEL 140 MEQ/L (136-145)
== END ==
LOC: M PLALAB 12:05
PROVIDERS: ATTEND Physician Assistant
DX: I50.32 Chronic diastolic (congestive) heart failure (principal); E83.42 Hypomagnesemia

== ENCOUNTER → 2021-08-02 | Outpatient (CLI) | payer MEDICARE ==
[2021-08-02 17:32] LABS: BLOOD UREA NITROGEN 17 MG/DL (7-18); CALCIUM LEVEL 9.1 MG/DL (8.8-10.2); CARBON DIOXIDE LEVEL 29 MEQ/L (21-32); CHLORIDE LEVEL 104 MEQ/L (98-107); CREATININE FOR GFR 1.03 MG/DL (0.70-1.30); GLOMERULAR FILTRATION RATE > 60.0 (>42); GLUCOSE, FASTING 88 MG/DL (70-100); NT-PRO BNP 762 PG/ML (<450); POTASSIUM SERUM 4.9 MEQ/L (3.5-5.1); SODIUM LEVEL 138 MEQ/L (136-145)
== END ==
LOC: M PLALAB 12:18
PROVIDERS: ATTEND Physician Assistant
DX: I50.32 Chronic diastolic (congestive) heart failure (principal); E83.42 Hypomagnesemia

== ENCOUNTER → 2021-10-12 | Outpatient (CLI) | payer MEDICARE ==
[2021-10-12 14:30] LABS: BLOOD UREA NITROGEN 16 MG/DL (7-18); CALCIUM LEVEL 9.5 MG/DL (8.8-10.2); CARBON DIOXIDE LEVEL 25 MEQ/L (21-32); CHLORIDE LEVEL 104 MEQ/L (98-107); CREATININE FOR GFR 1.05 MG/DL (0.70-1.30); GLOMERULAR FILTRATION RATE > 60.0 (>42); GLUCOSE, FASTING 139 MG/DL (70-100); MAGNESIUM LEVEL 1.7 MG/DL (1.8-2.4); NT-PRO BNP 790 PG/ML (<450); POTASSIUM SERUM 4.3 MEQ/L (3.5-5.1); SODIUM LEVEL 137 MEQ/L (136-145)
== END ==
LOC: M PLALAB 09:46
PROVIDERS: ATTEND Physician Assistant
DX: I50.32 Chronic diastolic (congestive) heart failure (principal); E83.42 Hypomagnesemia

== ENCOUNTER → 2021-12-08 | Outpatient (CLI) | payer MEDICARE ==
[2021-12-08 16:31] LABS: HEMATOCRIT 39.2 % (42.0-52.0); HEMOGLOBIN 12.8 g/dl (13.5-17.5); MEAN CORPUSCULAR HEMOGLOBIN 33.6 pg (27.0-33.0); MEAN CORPUSCULAR HGB CONC 32.7 g/dl (32.0-36.5); MEAN CORPUSCULAR VOLUME 102.9 fl (80.0-96.0); PLATELET COUNT, AUTOMATED 244 10^3/uL (150-450); RED BLOOD COUNT 3.81 10^6/uL (4.30-6.10); WHITE BLOOD COUNT 9.7 10^3/uL (4.0-10.0)
[2021-12-08 17:19] LABS: ALBUMIN 3.6 GM/DL (3.2-5.2); ALT/SGPT 20 U/L (12-78); BILIRUBIN,TOTAL 0.6 MG/DL (0.2-1.0); BLOOD UREA NITROGEN 21 MG/DL (7-18); CALCIUM LEVEL 9.3 MG/DL (8.8-10.2); CARBON DIOXIDE LEVEL 28 MEQ/L (21-32); CHLORIDE LEVEL 102 MEQ/L (98-107); CHOLESTEROL LEVEL 120 MG/DL (<200); CHOLESTEROL RISK RATIO 2.307 (<5); CREATININE FOR GFR 1.04 MG/DL (0.70-1.30); FREE T4 0.95 NG/DL (0.76-1.46); GLOMERULAR FILTRATION RATE > 60.0 (>42); GLUCOSE, FASTING 95 MG/DL (70-100); HDL CHOLESTEROL 52 MG/DL (>40); LDL CHOLESTEROL 41 MG/DL (<100); NON-HDL-C 68 MG/DL; POTASSIUM SERUM 4.6 MEQ/L (3.5-5.1); SODIUM LEVEL 136 MEQ/L (136-145); TOTAL PROTEIN 6.9 GM/DL (6.4-8.2); TRIGLYCERIDES LEVEL 133 MG/DL (<150)
[2021-12-08 17:23] LABS: CREATININE, URINE 22.9 MG/DL; MALB URINE SIEMENS < 5.0 MG/L; MAU/CREAT RATIO 21.8 MCG/MG (0.0-30.0)
[2021-12-08 17:45] LABS: TOTAL 25(OH) VITAMIN D 48.9 NG/ML (30.0-100.0); VITAMIN B12 LEVEL > 2000 PG/ML (247-911)
== END ==
LOC: M PLALAB 12:41
PROVIDERS: ATTEND Internal Medicine Hematology
DX: I25.10 Atherosclerotic heart disease of native coronary artery without angina pectoris (principal); K52.9 Noninfective gastroenteritis and colitis, unspecified; Z12.5 Encounter for screening for malignant neoplasm of prostate; Z79.899 Other long term (current) drug therapy
CPT/HCPCS: 36415; 80053; 80061; 82043; 82306; 82607; 83036; 84439; 84443; 85027; 86140; G0103

== ENCOUNTER → 2021-12-09 | Outpatient (REF) | payer MEDICARE | LOC: M SFHCPLAZ 13:10 | PROVIDERS: ATTEND Internal Medicine Hematology | DX: K52.9 Noninfective gastroenteritis and colitis, unspecified (principal) ==

== ENCOUNTER → 2022-01-09 | Outpatient (CLI) | payer MEDICARE ==
[2022-01-09 17:52] LABS: BLOOD UREA NITROGEN 18 MG/DL (9-23); CALCIUM LEVEL 8.6 MG/DL (8.3-10.6); CARBON DIOXIDE LEVEL 27 MMOL/L (20-31); CHLORIDE LEVEL 102 MMOL/L (98-107); CREATININE FOR GFR 1.01 MG/DL (0.70-1.30); GLOMERULAR FILTRATION RATE > 60.0 (>42); GLUCOSE, FASTING 138 MG/DL (74-106); POTASSIUM SERUM 4.6 MMOL/L (3.5-5.1); SODIUM LEVEL 137 MMOL/L (136-145)
== END ==
LOC: M PLALAB 14:57
PROVIDERS: ATTEND Physician Assistant
DX: I50.32 Chronic diastolic (congestive) heart failure (principal)

== ENCOUNTER → 2022-01-10 | Outpatient (REF) | payer MEDICARE | LOC: M LAB REF 17:01 | PROVIDERS: ATTEND Podiatrist Foot & Ankle Surgery | DX: L03.032 Cellulitis of left toe (principal) ==

== ENCOUNTER → 2022-03-01 | Outpatient (CLI) | payer MEDICARE ==
[2022-03-01 12:16] LABS: BASO # 0.1 10^3/uL (0.0-0.2); BASO % 0.8 % (0.0-1.0); EOS # 0.5 10^3/uL (0.0-0.5); EOS % 4.1 % (0.0-3.0); HEMATOCRIT 39.5 % (42.0-52.0); HEMOGLOBIN 12.4 g/dl (13.5-17.5); LYMPH # 1.6 10^3/uL (1.5-5.0); LYMPH % 14.3 % (24.0-44.0); MEAN CORPUSCULAR HEMOGLOBIN 32.1 pg (27.0-33.0); MEAN CORPUSCULAR HGB CONC 31.4 g/dl (32.0-36.5); MEAN CORPUSCULAR VOLUME 102.3 fl (80.0-96.0); MONO # 1.1 10^3/uL (0.0-0.8); MONO % 10.2 % (2.0-8.0); NEUTROPHILS # 7.8 10^3/uL (1.5-8.5); NEUTROPHILS % 70.2 % (36.0-66.0); PLATELET COUNT, AUTOMATED 245 10^3/uL (150-450); RED BLOOD COUNT 3.86 10^6/uL (4.30-6.10); WHITE BLOOD COUNT 11.2 10^3/uL (4.0-10.0)
[2022-03-01 12:44] LABS: MAGNESIUM LEVEL 1.9 MG/DL (1.8-2.4)
[2022-03-01 12:46] LABS: ALBUMIN 3.5 G/DL (3.2-5.2); ALKALINE PHOSPHATASE 98 U/L (46-116); ALT/SGPT 15 U/L (7.0-40); AST/SGOT 20 U/L (<34); BILIRUBIN,TOTAL 0.4 MG/DL (0.3-1.2); BLOOD UREA NITROGEN 21 MG/DL (9-23); CALCIUM LEVEL 9.5 MG/DL (8.3-10.6); CARBON DIOXIDE LEVEL 28 MMOL/L (20-31); CHLORIDE LEVEL 103 MMOL/L (98-107); CREATININE FOR GFR 1.02 MG/DL (0.70-1.30); GLOMERULAR FILTRATION RATE > 60.0 (>42); GLUCOSE, FASTING 82 MG/DL (74-106); POTASSIUM SERUM 4.7 MMOL/L (3.5-5.1); SODIUM LEVEL 137 MMOL/L (136-145); TOTAL PROTEIN 6.8 G/DL (5.7-8.2)
== END ==
LOC: M PLALAB 11:02
PROVIDERS: ATTEND Physician Assistant
DX: R07.9 Chest pain, unspecified (principal); R06.02 Shortness of breath; R60.0 Localized edema

== ENCOUNTER → 2022-04-06 | Outpatient (CLI) | payer MEDICARE ==
[2022-04-06 15:32] LABS: BLOOD UREA NITROGEN 20 MG/DL (9-23); CALCIUM LEVEL 8.8 MG/DL (8.3-10.6); CARBON DIOXIDE LEVEL 27 MMOL/L (20-31); CHLORIDE LEVEL 106 MMOL/L (98-107); CREATININE FOR GFR 1.13 MG/DL (0.70-1.30); GLOMERULAR FILTRATION RATE > 60.0 (>42); GLUCOSE, FASTING 104 MG/DL (74-106); SODIUM LEVEL 140 MMOL/L (136-145)
== END ==
LOC: M PLALAB 13:54
PROVIDERS: ATTEND Physician Assistant
DX: I50.32 Chronic diastolic (congestive) heart failure (principal)

== ENCOUNTER 2022-05-31 19:27 | Emergency (ER) | payer MEDICARE ==
[~2022-05-31] VITALS: Ht 180.3 cm; Wt 120.5 kg
[2022-05-31 20:21] LABS: BASO # 0.1 10^3/uL (0.0-0.2); BASO % 0.8 % (0.0-1.0); EOS # 0.5 10^3/uL (0.0-0.5); EOS % 5.6 % (0.0-3.0); HEMATOCRIT 33.8 % (42.0-52.0); HEMOGLOBIN 10.7 g/dl (13.5-17.5); LYMPH # 1.3 10^3/uL (1.5-5.0); LYMPH % 15.3 % (24.0-44.0); MEAN CORPUSCULAR HEMOGLOBIN 32.1 pg (27.0-33.0); MEAN CORPUSCULAR HGB CONC 31.7 g/dl (32.0-36.5); MEAN CORPUSCULAR VOLUME 101.5 fl (80.0-96.0); MONO # 0.8 10^3/uL (0.0-0.8); MONO % 9.9 % (2.0-8.0); NEUTROPHILS # 5.8 10^3/uL (1.5-8.5); PLATELET COUNT, AUTOMATED 196 10^3/uL (150-450); RED BLOOD COUNT 3.33 10^6/uL (4.30-6.10); WHITE BLOOD COUNT 8.5 10^3/uL (4.0-10.0)
[2022-05-31] MEDS ORDERED: IPRATROPIUM 0.5MG/ALBUTEROL 2.5MG INH SOL UD 3ML (DUONEB) NEB ONE (20:35)
[2022-05-31] MEDS ORDERED: methylPREDNISolone 125MG 2ML VIAL IV ONE (20:35)
[2022-05-31] MEDS ORDERED: ALBUTEROL SULFATE 2.5MG/0.5ML INH NEB SOLN INH ONE (20:35)
[2022-05-31 20:45] LABS: LIPASE 33 U/L (12-53)
[2022-05-31 20:47] LABS: CPK CREATINE PHOSPHOKINASE 92 U/L (46-171); MB/CK RELATIVE INDEX 2.17 (< OR =4)
[2022-05-31 20:48] LABS: ALKALINE PHOSPHATASE 89 U/L (46-116); ALT/SGPT 12 U/L (7.0-40); AST/SGOT 15 U/L (<34); BILIRUBIN,DIRECT 0.1 MG/DL (<0.4); BILIRUBIN,TOTAL 0.3 MG/DL (0.3-1.2); BLOOD UREA NITROGEN 19 MG/DL (9-23); CALCIUM LEVEL 8.2 MG/DL (8.3-10.6); CARBON DIOXIDE LEVEL 27 MMOL/L (20-31); CHLORIDE LEVEL 107 MMOL/L (98-107); CREATININE FOR GFR 1.04 MG/DL (0.70-1.30); GLOMERULAR FILTRATION RATE > 60.0 (>42); GLUCOSE, FASTING 147 MG/DL (74-106); POTASSIUM SERUM 4.2 MMOL/L (3.5-5.1); SODIUM LEVEL 138 MMOL/L (136-145); TOTAL PROTEIN 5.8 G/DL (5.7-8.2)
[2022-05-31 21:00] LABS: RSV AMPLIFICATION NEGATIVE (NEGATIVE)
[2022-05-31] MEDS ORDERED: ISOVUE-370 76% 100ML VIAL As Ordered ONE (21:07)
[2022-05-31 21:21] LABS: PROTHROMBIN TIME 13.4 SECONDS (12.5-14.5)
[2022-05-31 21:31] LABS: CK-MB VALUE MASS 1.9 NG/ML (<3.6)
[2022-05-31 21:32] LABS: MB/CK RELATIVE INDEX 2.02 (< OR =4)
[2022-05-31 23:21] VITALS: BP 104/57
[2022-05-31] MEDS ORDERED: ALBU6.7H6 INH (23:34)
[2022-05-31] MEDS ORDERED: PRED20TA PO (23:34)
[2022-05-31 23:41] LABS: CK-MB VALUE MASS 1.8 NG/ML (<3.6)
[2022-05-31 23:43] LABS: MB/CK RELATIVE INDEX 1.8 (< OR =4)
== END 2022-06-01 00:12 | disposition home or self-care (01) ==
LOC: EDBD 19:27 → M ED 19:27
DX: R07.9 Chest pain, unspecified (principal); J44.1 Chronic obstructive pulmonary disease with (acute) exacerbation; I25.10 Atherosclerotic heart disease of native coronary artery without angina pectoris; I51.7 Cardiomegaly; I35.9 Nonrheumatic aortic valve disorder, unspecified; I28.8 Other diseases of pulmonary vessels; I77.810 Thoracic aortic ectasia; Z95.5 Presence of coronary angioplasty implant and graft; Z79.82 Long term (current) use of aspirin; Z79.899 Other long term (current) drug therapy; Z88.1 Allergy status to other antibiotic agents; Z88.2 Allergy status to sulfonamides
CPT/HCPCS: 71045; 71275; 80048; 80076; 82550; 82553; 83690; 83880; 84484; 85025; 85610; 85730; 87631; 93005; 93041; 94640; 94760; 96374; 99285; J2930; Q9967

== ENCOUNTER → 2022-06-30 | Outpatient (CLI) | payer MEDICARE ==
[~2022-06-30] MED LIST changes: +ALBU6.7H6 INH; +PRED20TA PO
[2022-06-30 13:27] LABS: BLOOD UREA NITROGEN 23 MG/DL (9-23); CALCIUM LEVEL 8.9 MG/DL (8.3-10.6); CARBON DIOXIDE LEVEL 31 MMOL/L (20-31); CHLORIDE LEVEL 102 MMOL/L (98-107); GLOMERULAR FILTRATION RATE > 60.0 (>42); GLUCOSE, FASTING 78 MG/DL (74-106); MAGNESIUM LEVEL 1.2 MG/DL (1.8-2.4); POTASSIUM SERUM 4.1 MMOL/L (3.5-5.1); SODIUM LEVEL 139 MMOL/L (136-145)
[2022-06-30 13:28] LABS: HEMOGLOBIN 11.7 g/dl (13.5-17.5); MEAN CORPUSCULAR HEMOGLOBIN 32.4 pg (27.0-33.0); MEAN CORPUSCULAR HGB CONC 31.6 g/dl (32.0-36.5); MEAN CORPUSCULAR VOLUME 102.5 fl (80.0-96.0); PLATELET COUNT, AUTOMATED 285 10^3/uL (150-450); RED BLOOD COUNT 3.61 10^6/uL (4.30-6.10); WHITE BLOOD COUNT 11.7 10^3/uL (4.0-10.0)
== END ==
LOC: M PLALAB 09:52
PROVIDERS: ATTEND Physician Assistant
DX: I50.32 Chronic diastolic (congestive) heart failure (principal)

== ENCOUNTER 2022-07-14 07:47 | Emergency (ER) | payer MEDICARE ==
[~2022-07-14] VITALS: Ht 198.1 cm; Wt 116.9 kg
[2022-07-14 08:10] LABS: VENOUS BASE EXCESS 0.3 (-2.0-2.0); VENOUS O2 SATURATION 70.6 % (60.0-80.0); VENOUS PARTIAL PRESSURE CO2 46.3 mmHg (38.0-50.0); VENOUS PARTIAL PRESSURE O2 39.2 mmHg (30.0-50.0); VENOUS PH 7.367 UNITS (7.330-7.430); VENOUS STANDARD HCO3 24.1 MMOL/L; VENOUS TOTAL CO2 27.4 MMOL/L (24.0-28.0)
[2022-07-14 08:14] LABS: BASO # 0.1 10^3/uL (0.0-0.2); BASO % 0.4 % (0.0-1.0); EOS % 0.2 % (0.0-3.0); HEMATOCRIT 36.3 % (42.0-52.0); HEMOGLOBIN 11.7 g/dl (13.5-17.5); LYMPH # 0.9 10^3/uL (1.5-5.0); LYMPH % 6.9 % (24.0-44.0); MEAN CORPUSCULAR HEMOGLOBIN 32.7 pg (27.0-33.0); MEAN CORPUSCULAR HGB CONC 32.2 g/dl (32.0-36.5); MEAN CORPUSCULAR VOLUME 101.4 fl (80.0-96.0); MONO # 1.1 10^3/uL (0.0-0.8); MONO % 9.2 % (2.0-8.0); NEUTROPHILS # 10.3 10^3/uL (1.5-8.5); NEUTROPHILS % 82.7 % (36.0-66.0); PLATELET COUNT, AUTOMATED 216 10^3/uL (150-450); RED BLOOD COUNT 3.58 10^6/uL (4.30-6.10); WHITE BLOOD COUNT 12.4 10^3/uL (4.0-10.0)
[2022-07-14] MEDS ORDERED: FUROSEMIDE 20MG/2ML VIAL IV ONE (08:35)
[2022-07-14 08:38] LABS: ALBUMIN 3.2 G/DL (3.2-5.2); BILIRUBIN,DIRECT 0.2 MG/DL (<0.4); BILIRUBIN,TOTAL 0.5 MG/DL (0.3-1.2); CALCIUM LEVEL 8.4 MG/DL (8.3-10.6); CREATININE FOR GFR 1.42 MG/DL (0.70-1.30); GLOMERULAR FILTRATION RATE 51.3 (>42); POTASSIUM SERUM 4.6 MMOL/L (3.5-5.1); TOTAL PROTEIN 6.3 G/DL (5.7-8.2)
[2022-07-14 08:39] LABS: THYROID STIMULATING HORMONE 1.964 uIU/ML (0.55-4.78); THYROXINE (T4) 7.2 UG/DL (4.5-10.9)
[2022-07-14 09:31] LABS: MB/CK RELATIVE INDEX 3.32 (< OR =4)
[2022-07-14] MEDS ORDERED: ASPIRIN 81MG CHEW TABLET PO ONE (10:15)
[2022-07-14 10:20] LABS: CK-MB VALUE MASS 9.2 NG/ML (<3.6)
[2022-07-14 10:25] LABS: MB/CK RELATIVE INDEX 3.44 (< OR =4)
[2022-07-14] MEDS ORDERED: HEPARIN DRIP 25,000 UNITS in IV 1 EA IV SCH (11:00)
[2022-07-14] MEDS ORDERED: CLOPIDOGREL 300 MG TAB (PLAVIX) PO ONE (11:00)
[2022-07-14] MEDS ORDERED: HEPARIN SOD (PORCINE) 5000UNITS/ML 1ML VIAL/SYRINGE IV ONE (11:00)
[2022-07-14 11:36] LABS: INR 1.08; PARTIAL THROMBOPLASTIN TIME 30.2 SECONDS (24.8-34.2); PROTHROMBIN TIME 14.2 SECONDS (12.5-14.5)
[2022-07-14 13:36] VITALS: BP 108/59
== END 2022-07-14 13:38 | disposition short-term general hospital (02) ==
LOC: M ED 07:47
DX: I21.4 Non-ST elevation (NSTEMI) myocardial infarction (principal); I51.7 Cardiomegaly; R09.89 Other specified symptoms and signs involving the circulatory and respiratory systems; I50.9 Heart failure, unspecified; I10 Essential (primary) hypertension; E78.5 Hyperlipidemia, unspecified; G89.29 Other chronic pain; F03.90 Unspecified dementia, unspecified severity, without behavioral disturbance, psychotic disturbance, mood disturbance, and anxiety; Z87.891 Personal history of nicotine dependence; Z95.5 Presence of coronary angioplasty implant and graft; Z79.82 Long term (current) use of aspirin; Z79.899 Other long term (current) drug therapy; Z88.1 Allergy status to other antibiotic agents; Z88.2 Allergy status to sulfonamides
CPT/HCPCS: 71045; 80047; 80048; 80076; 82550; 82553; 82803; 83605; 83880; 84436; 84443; 84484; 85025; 85610; 85730; 87040; 87486; 87581; 87633; 87798; 93005; 93041; 94760; 96365; 96366; 96375; 99285; J1940